=== PATIENT | female | born 1940 | race Caucasian/White ===

== ENCOUNTER → 2016-10-12 | Outpatient (CLI) | payer MEDICARE, OTHER ==
[~2016-10-12] MED LIST: /BACIOPOI TOP; ACET65TA OR; ALBU17IN INH; ALTA1CAP2 PO; ASPI1TAB PO; ASPI1TAB6 PO; BACT800T OR; CALCIUM PO; CEFD1CAP8 PO; CEFT500T OR; CRES20TA PO; DOCU100T8 PO; FAMO40TA3 PO; FE G325T PO; FERR325T3 PO; FURO20TA2 PO; GLUCOSE TEST STRIPS; INSUH10VL SC; INSULANT SC; LISI5TAB OR; LOPR1TAB6 PO; METF1000 PO; METF500T4 OR; MULTCAP PO; RANI150T PO; SITA50TAB PO; TRIA1CR TOP; ZOCO40TA OR; [UNRECOGNIZED DRUG - OTHER] PO; [UNRECOGNIZED DRUG - REMARK]
[2016-10-12 13:59] LABS: BASO # 0.1 K/mm3 (0.0-0.2); BASO % 1.1 % (0.0-1.0); EOS # 0.6 K/mm3 (0.0-0.50); EOS % 9.5 % (0.0-3.0); LARGE UNSTAINED CELL # 0.2 K/mm3 (0.0-0.4); LARGE UNSTAINED CELL % 3.1 % (0.0-4.0); LYMPH # 2.3 K/mm3 (1.5-4.5); LYMPH % 35.2 % (24.0-44.0); MEAN CORPUSCULAR HGB CONC 31.5 g/dl (32.0-36.5); MEAN CORPUSCULAR VOLUME 88.8 fl (80.0-96.0); MONO # 0.4 K/mm3 (0.0-0.8); MONO % 6.6 % (0.0-5.0); NEUTROPHILS # 2.9 K/mm3 (1.8-7.7); NEUTROPHILS % 44.5 % (36.0-66.0); PLATELET COUNT, AUTOMATED 210 k/mm3 (150-450); RED CELL DISTRIBUTION WIDTH 12.7 % (11.5-14.5); WHITE BLOOD COUNT 6.5 K/mm3 (4.0-10.0)
[2016-10-12 14:00] LABS: ALBUMIN 3.9 GM/DL (3.2-5.2); ALBUMIN/GLOBULIN RATIO 1.44 (1.00-1.93); BILIRUBIN,TOTAL 0.4 MG/DL (0.2-1.0); CALCIUM LEVEL 8.9 MG/DL (8.8-10.2); CREATININE FOR GFR 1.04 MG/DL (0.55-1.02); POTASSIUM SERUM 4.7 MEQ/L (3.5-5.1); TOTAL PROTEIN 6.6 GM/DL (6.4-8.2)
== END ==
LOC: M SMT 10:48
PROVIDERS: ATTEND Family Medicine
DX: E11.59 Type 2 diabetes mellitus with other circulatory complications (principal); I10 Essential (primary) hypertension; E66.01 Morbid (severe) obesity due to excess calories

== ENCOUNTER → 2017-03-13 | Outpatient (CLI) | payer MEDICARE, OTHER ==
[~2017-03-13] MED LIST changes: -METF1000 PO; +METF10004 PO
[2017-03-13 13:25] LABS: CALCIUM LEVEL 9.5 MG/DL (8.8-10.2); CREATININE FOR GFR 0.97 MG/DL (0.55-1.02); GLOMERULAR FILTRATION RATE 59.4 (>39); POTASSIUM SERUM 4.3 MEQ/L (3.5-5.1)
== END ==
LOC: M SMT 08:30
PROVIDERS: ATTEND Physician Assistant
DX: E11.59 Type 2 diabetes mellitus with other circulatory complications (principal)

== ENCOUNTER → 2017-09-20 | Outpatient (CLI) | payer MEDICARE, OTHER ==
[2017-09-20 17:59] LABS: BASO # 0.1 10^3/uL (0.0-0.2); BASO % 0.9 % (0.0-1.0); EOS # 0.5 10^3/uL (0.0-0.50); EOS % 7.2 % (0.0-3.0); HEMATOCRIT 39.9 % (36.0-47.0); HEMOGLOBIN 12.5 g/dl (12.0-16.0); IMMATURE GRANULOCYTE % 0.4 % (0-0); LYMPH % 28.7 % (24.0-44.0); MEAN CORPUSCULAR HEMOGLOBIN 28.3 pg (27.0-33.0); MEAN CORPUSCULAR HGB CONC 31.3 g/dl (32.0-36.5); MEAN CORPUSCULAR VOLUME 90.3 fl (80.0-96.0); MONO # 0.7 10^3/uL (0.0-0.8); MONO % 9.5 % (0.0-5.0); NEUTROPHILS # 3.8 10^3/uL (1.8-7.7); NEUTROPHILS % 53.3 % (36.0-66.0); PLATELET COUNT, AUTOMATED 263 10^3/uL (150-450); RED BLOOD COUNT 4.42 10^6/uL (4.00-5.40); RED CELL DISTRIBUTION WIDTH 12.4 % (11.5-14.5); WHITE BLOOD COUNT 7.1 10^3/uL (4.0-10.0)
[2017-09-20 18:56] LABS: ALBUMIN 3.7 GM/DL (3.2-5.2); ALBUMIN/GLOBULIN RATIO 1.09 (1.00-1.93); ALKALINE PHOSPHATASE 100 U/L (45-117); ALT/SGPT 17 U/L (12-78); ANION GAP 9 MEQ/L (8-16); AST/SGOT 10 U/L (7-37); BILIRUBIN,TOTAL 0.4 MG/DL (0.2-1.0); BLOOD UREA NITROGEN 29 MG/DL (7-18); CALCIUM LEVEL 9.6 MG/DL (8.8-10.2); CARBON DIOXIDE LEVEL 29 MEQ/L (21-32); CHLORIDE LEVEL 100 MEQ/L (98-107); CHOLESTEROL LEVEL 112 MG/DL (<200); CHOLESTEROL RISK RATIO 2.871 (<5); CREATININE FOR GFR 1.28 MG/DL (0.55-1.30); FREE T4 1.18 NG/DL (0.76-1.46); GLOMERULAR FILTRATION RATE 43.2 (>39); GLUCOSE, FASTING 280 MG/DL (70-100); HDL CHOLESTEROL 39 MG/DL (>40); LDL CHOLESTEROL 32.4 MG/DL (<100); NON-HDL-C 73 MG/DL; POTASSIUM SERUM 4.2 MEQ/L (3.5-5.1); SODIUM LEVEL 138 MEQ/L (136-145); TOTAL PROTEIN 7.1 GM/DL (6.4-8.2); TRIGLYCERIDES LEVEL 203 MG/DL (<150)
[2017-09-20 19:33] LABS: ESTIMATED AVERAGE GLUCOSE 194 MG/DL (60-110); HEMOGLOBIN A1c 8.4 %
== END ==
LOC: M SMT 14:04
DX: E78.2 Mixed hyperlipidemia (principal); E11.59 Type 2 diabetes mellitus with other circulatory complications
CPT/HCPCS: 84443

== ENCOUNTER → 2018-03-04 | Outpatient (CLI) | payer MEDICARE, OTHER ==
[2018-03-04 13:46] LABS: ALBUMIN 3.5 GM/DL (3.2-5.2); ALBUMIN/GLOBULIN RATIO 1.09 (1.00-1.93); ALKALINE PHOSPHATASE 76 U/L (45-117); ALT/SGPT 15 U/L (12-78); ANION GAP 8 MEQ/L (8-16); AST/SGOT 9 U/L (7-37); BILIRUBIN,TOTAL 0.5 MG/DL (0.2-1.0); BLOOD UREA NITROGEN 24 MG/DL (7-18); CALCIUM LEVEL 9.4 MG/DL (8.8-10.2); CARBON DIOXIDE LEVEL 30 MEQ/L (21-32); CHLORIDE LEVEL 107 MEQ/L (98-107); CHOLESTEROL LEVEL 105 MG/DL (<200); CHOLESTEROL RISK RATIO 2.837 (<5); CREATININE FOR GFR 1.16 MG/DL (0.55-1.30); FREE T4 1.16 NG/DL (0.76-1.46); GLOMERULAR FILTRATION RATE 48.2 (>39); GLUCOSE, FASTING 142 MG/DL (70-100); HDL CHOLESTEROL 37 MG/DL (>40); NON-HDL-C 68 MG/DL; POTASSIUM SERUM 4.3 MEQ/L (3.5-5.1); SODIUM LEVEL 145 MEQ/L (136-145); TOTAL PROTEIN 6.7 GM/DL (6.4-8.2); TRIGLYCERIDES LEVEL 210 MG/DL (<150)
[2018-03-04 14:45] LABS: ESTIMATED AVERAGE GLUCOSE 200 MG/DL (60-110); HEMOGLOBIN A1c 8.6 %
== END ==
LOC: M SMT 11:05
DX: E11.59 Type 2 diabetes mellitus with other circulatory complications (principal); E78.2 Mixed hyperlipidemia
CPT/HCPCS: 84443

== ENCOUNTER → 2018-06-25 | Outpatient (REF) | payer MEDICARE, OTHER ==
[2018-06-25 13:25] LABS: BASO # 0.1 10^3/uL (0.0-0.2); BASO % 0.9 % (0.0-1.0); EOS # 0.8 10^3/uL (0.0-0.50); EOS % 9.6 % (0.0-3.0); HEMATOCRIT 39.1 % (36.0-47.0); IMMATURE GRANULOCYTE % 0.4 % (0-3.0); LYMPH # 2.7 10^3/uL (1.5-4.5); LYMPH % 34.2 % (24.0-44.0); MEAN CORPUSCULAR HEMOGLOBIN 28.4 pg (27.0-33.0); MEAN CORPUSCULAR HGB CONC 30.7 g/dl (32.0-36.5); MEAN CORPUSCULAR VOLUME 92.4 fl (80.0-96.0); MONO # 0.8 10^3/uL (0.0-0.8); MONO % 10.8 % (0.0-5.0); NEUTROPHILS # 3.4 10^3/uL (1.8-7.7); NEUTROPHILS % 44.1 % (36.0-66.0); PLATELET COUNT, AUTOMATED 223 10^3/uL (150-450); RED BLOOD COUNT 4.23 10^6/uL (4.00-5.40); WHITE BLOOD COUNT 7.8 10^3/uL (4.0-10.0)
[2018-06-25 13:40] LABS: ALBUMIN 3.5 GM/DL (3.2-5.2); ALBUMIN/GLOBULIN RATIO 1.17 (1.00-1.93); ALKALINE PHOSPHATASE 75 U/L (45-117); ALT/SGPT 17 U/L (12-78); ANION GAP 6 MEQ/L (8-16); AST/SGOT 13 U/L (7-37); BILIRUBIN,TOTAL 0.3 MG/DL (0.2-1.0); BLOOD UREA NITROGEN 21 MG/DL (7-18); CALCIUM LEVEL 9.1 MG/DL (8.8-10.2); CARBON DIOXIDE LEVEL 31 MEQ/L (21-32); CHLORIDE LEVEL 106 MEQ/L (98-107); CREATININE FOR GFR 1.11 MG/DL (0.55-1.30); GLOMERULAR FILTRATION RATE 50.7 (>39); GLUCOSE, FASTING 125 MG/DL (70-100); POTASSIUM SERUM 4.5 MEQ/L (3.5-5.1); SODIUM LEVEL 143 MEQ/L (136-145); TOTAL PROTEIN 6.5 GM/DL (6.4-8.2)
[2018-06-25 14:02] LABS: ESTIMATED AVERAGE GLUCOSE 171 MG/DL (60-110); HEMOGLOBIN A1c 7.6 %
== END ==
LOC: M LAB REF 12:54
DX: E11.59 Type 2 diabetes mellitus with other circulatory complications (principal); J44.9 Chronic obstructive pulmonary disease, unspecified
CPT/HCPCS: 80053

== ENCOUNTER → 2018-08-05 | Outpatient (CLI) | payer MEDICARE, OTHER ==
--- NOTE | 2018-08-08 14:26 | SLEEPHOME ---
DIAGNOSTIC HOME SLEEP TESTING ORDERED BY: GERARDO Chakraborty DATE OF SERVICE: 08/05/2018 Diagnostic home sleep testing was performed due to concern for the obstructive sleep apnea syndrome. The patient has comorbidities of hypertension and diabetes. For testing a nocturnal T3 respiratory monitoring device was used. Continuous record was made of pulse oxygen saturation airflow, chest, abdominal strain and body position. 9 hours and 59 minutes of data were reviewed. There are 8 hours and 7 minutes marked as time in bed. During the interval of marked time in bed there were 141 respiratory events identified of 10 seconds in duration or greater for a respiratory event index of 17.3 per hour. The events were obstructive. Baseline pulse rate was 75 beats per minute. Pulse rate ranged from 29-129. Baseline saturation was 90%. Saturations fell as low as 56%. The oxygen desaturation index was 7.5. Testing was performed in both the supine and non-supine positions. IMPRESSION: Abnormal home sleep testing with repetitive respiratory events and oxygen desaturations to 56% with a respiratory event index of 17.3 is consistent with the obstructive sleep apnea syndrome. RECOMMENDATIONS: The patient should be encouraged to undergo a formal sleep evaluation and in laboratory pressure titration.
== END ==
LOC: M SLEEP HO 10:51
PROVIDERS: ATTEND Physician Assistant
DX: G47.30 Sleep apnea, unspecified (principal); J44.9 Chronic obstructive pulmonary disease, unspecified

== ENCOUNTER → 2018-12-12 | Outpatient (CLI) | payer MEDICARE, OTHER ==
[~2018-12-12] MED LIST changes: -ASPI1TAB PO; +ASPI81TA26 PO; -CRES20TA PO; +CRES20TA2 PO; +TRIA0.1C60 TOP; -TRIA1CR TOP
--- NOTE | 2018-12-17 14:41 | SLEEPCENT ---
DATE OF STUDY: 12/12/2018 ORDERED BY: DIONY Martinez Nocturnal polysomnography was performed for the titration of pressure therapy in this patient with obstructive sleep apnea syndrome. Apnea-hypopnea index 17.3. For testing the patient was fit with a [employer] Simplus full face mask of small size, 4 cm of water pressure were applied to the circuit and the lights were extinguished. 7 hours and 55 minutes of data were reviewed. There were 334 minutes of sleep identified. Sleep latency was normal at 8.5 minutes. REM latency was delayed at 322 minutes. Sleep architecture improved late in the study. Overall sleep efficiency was 71.3%. The electrocardiogram showed small complexes with a sinus rhythm with an average heart rate of 66 beats per minute. EEG showed reasonably normal waveforms for awake and sleep stages. Respiratory events were well palliated with CPAP at a pressure of 13. There was some limb activity noted but limb movement arousal index was only 4.8. IMPRESSION: Obstructive sleep apnea syndrome (G47.33). RECOMMENDATION: Nightly use of pressure therapy, 13 cm of water. cc: Felisa Julian DO
== END ==
LOC: M SLEEP 19:38
PROVIDERS: ATTEND Nurse Practitioner Family
DX: G47.33 Obstructive sleep apnea (adult) (pediatric) (principal)

== ENCOUNTER 2019-01-31 11:52 | Emergency (ER) | payer MEDICARE, OTHER ==
[~2019-01-31] VITALS: Ht 167.6 cm; Wt 112.3 kg
[2019-01-31 12:58] LABS: BASO # 0.1 10^3/uL (0.0-0.2); BASO % 1.2 % (0.0-1.0); EOS # 0.5 10^3/uL (0.0-0.50); EOS % 7.5 % (0.0-3.0); HEMATOCRIT 38.4 % (36.0-47.0); HEMOGLOBIN 12.2 g/dl (12.0-15.5); LYMPH # 1.6 10^3/uL (1.5-4.5); LYMPH % 24.8 % (24.0-44.0); MEAN CORPUSCULAR HEMOGLOBIN 28.7 pg (27.0-33.0); MEAN CORPUSCULAR HGB CONC 31.8 g/dl (32.0-36.5); MEAN CORPUSCULAR VOLUME 90.4 fl (80.0-96.0); MONO # 0.6 10^3/uL (0.0-0.8); MONO % 8.4 % (0.0-5.0); NEUTROPHILS # 3.8 10^3/uL (1.8-7.7); NEUTROPHILS % 57.6 % (36.0-66.0); PLATELET COUNT, AUTOMATED 225 10^3/uL (150-450); RED BLOOD COUNT 4.25 10^6/uL (4.00-5.40); WHITE BLOOD COUNT 6.5 10^3/uL (4.0-10.0)
--- NOTE | 2019-01-31 13:23 | REP ---
CHEST, TWO VIEWS: Two views of the chest are performed. There is mild bibasilar fibroatelectatic change without evidence of acute infiltrate. Heart is slightly prominent. There is some tortuosity of the thoracic aorta. The mediastinal silhouette is unchanged. There are multiple sternal wires present. There are degenerative changes of the spine. IMPRESSION: No acute infiltrate. Electronically Signed by Francisco Javier Phipps MD 01/31/2019 07:34 P
[2019-01-31 13:26] LABS: INR 0.97
[2019-01-31 13:27] LABS: PARTIAL THROMBOPLASTIN TIME 23.8 SECONDS (25.4-37.6)
[2019-01-31] MEDS ORDERED: MECLIZINE 25 MG TABLET PO ONE (13:30)
[2019-01-31 13:38] LABS: BLOOD UREA NITROGEN 29 MG/DL (7-18); CALCIUM LEVEL 9.4 MG/DL (8.8-10.2); CARBON DIOXIDE LEVEL 30 MEQ/L (21-32); CHLORIDE LEVEL 105 MEQ/L (98-107); CPK CREATINE PHOSPHOKINASE 58 U/L (26-192); CREATININE FOR GFR 1.29 MG/DL (0.55-1.30); FREE T4 1.22 NG/DL (0.76-1.46); GLOMERULAR FILTRATION RATE 42.6 (>39); GLUCOSE, FASTING 203 MG/DL (70-100); MAGNESIUM LEVEL 1.9 MG/DL (1.8-2.4); MB/CK RELATIVE INDEX 1.72 (< OR =4); POTASSIUM SERUM 4.7 MEQ/L (3.5-5.1); SODIUM LEVEL 141 MEQ/L (136-145); TROPONIN I < 0.02 NG/ML (< 0.10)
[2019-01-31] MEDS ORDERED: MECL-68 PO (15:37)
[2019-01-31 16:00] VITALS: BP 145/63
--- NOTE | 2019-02-01 18:46 | ECGEPIP ---
[facility] - ED Test Date: 2019-01-31 Pat Name: KARLA JIMENEZ Department: Room: - Gender: Female Cotton Factor: JKuldeep : 1940 Requested By: WILLIAM Aviles Order Number: [id number] Reading MD: Blanca Pickett Measurements Intervals [place] Rate: 53 P: 78 MO: 231 QRS: QRSD: 101 T: 44 QT: 443 QTc: 418 Interpretive Statements SINUS BRADYCARDIA WITH FIRST DEGREE AV BLOCK LOW QRS VOLTAGE IN PRECORDIAL LEADS PRWP NSTTW abnormalities NO PRIOR FOR COMPARISON Electronically Signed on 02-01-2019 18:45:51 EDT by Blanca Pickett
== END 2019-01-31 16:03 | disposition home or self-care (01) ==
LOC: M ED 11:52 → EDBD 11:52 → M ED 16:03
DX: R42 Dizziness and giddiness (principal); I44.0 Atrioventricular block, first degree; E11.9 Type 2 diabetes mellitus without complications; I11.0 Hypertensive heart disease with heart failure; I50.9 Heart failure, unspecified; I25.2 Old myocardial infarction; I25.10 Atherosclerotic heart disease of native coronary artery without angina pectoris; F33.9 Major depressive disorder, recurrent, unspecified; D50.9 Iron deficiency anemia, unspecified; E78.9 Disorder of lipoprotein metabolism, unspecified; Z87.19 Personal history of other diseases of the digestive system; Z86.73 Personal history of transient ischemic attack (TIA), and cerebral infarction without residual deficits; Z88.1 Allergy status to other antibiotic agents; Z91.018 Allergy to other foods; Z91.048 Other nonmedicinal substance allergy status; Z79.899 Other long term (current) drug therapy; Z79.82 Long term (current) use of aspirin; Z79.4 Long term (current) use of insulin

== ENCOUNTER 2019-02-13 14:15 | Emergency (ER) | payer MEDICARE, OTHER ==
[~2019-02-13] VITALS: Ht 167.6 cm; Wt 113.2 kg
[~2019-02-13 14:15] MED LIST changes: +MECL1TAB31 PO
[2019-02-13] MEDS ORDERED: SPIR1CAP INH (14:46)
[2019-02-13 15:09] LABS: BASO # 0.1 10^3/uL (0.0-0.2); BASO % 0.9 % (0.0-1.0); EOS # 0.5 10^3/uL (0.0-0.50); EOS % 7.6 % (0.0-3.0); HEMATOCRIT 38.4 % (36.0-47.0); HEMOGLOBIN 12.5 g/dl (12.0-15.5); LYMPH # 1.8 10^3/uL (1.5-4.5); LYMPH % 25.8 % (24.0-44.0); MEAN CORPUSCULAR HEMOGLOBIN 29.8 pg (27.0-33.0); MEAN CORPUSCULAR HGB CONC 32.6 g/dl (32.0-36.5); MEAN CORPUSCULAR VOLUME 91.6 fl (80.0-96.0); MONO # 0.7 10^3/uL (0.0-0.8); MONO % 9.7 % (0.0-5.0); NEUTROPHILS # 3.9 10^3/uL (1.8-7.7); NEUTROPHILS % 55.6 % (36.0-66.0); PLATELET COUNT, AUTOMATED 180 10^3/uL (150-450); RED BLOOD COUNT 4.19 10^6/uL (4.00-5.40)
[2019-02-13 15:34] LABS: CALCIUM LEVEL 9.3 MG/DL (8.8-10.2); CREATININE FOR GFR 1.25 MG/DL (0.55-1.30); GLOMERULAR FILTRATION RATE 44.1 (>39); POTASSIUM SERUM 4.6 MEQ/L (3.5-5.1)
[2019-02-13] MEDS ORDERED: ISOVUE-370 76% 100ML VIAL (Q9967) As Ordered ONE (16:22)
--- NOTE | 2019-02-13 16:47 | REP ---
Clinical: Abnormal vaginal bleeding. Technique: Transabdominal pelvic ultrasound followed by transvaginal examination for better evaluation of the endometrium and adnexa. Findings: Enlarged heterogeneous uterus measures 13.2 x 6.1 x 6.6 cm. Endometrial complex is thickened to 38 mm. No obvious focal abnormalities appreciated although evaluation is limited due to body habitus. Bilateral ovaries not visualized. No pelvic fluid. Bladder is partially collapsed and measures 5.6 x 2.7 x 5.6 cm. Impression: Heterogeneous enlarged uterus with thickened endometrium. While no focal abnormalities appreciated, underlying pathology cannot be excluded and evaluation is limited due to body habitus and technical factors. Electronically Signed by Timoteo Garner MD 02/13/2019 04:38 P
--- NOTE | 2019-02-13 17:02 | REP ---
Clinical: Abnormal vaginal bleeding. Possible pelvic mass. Technique: Axial contrast enhanced images from the lung bases to the pubic symphysis with coronal and sagittal re-formations using 100 ml Isovue 370 intravenous contrast material. Comparison: 01/17/2016. Findings: Lung bases demonstrate mild chronic changes. Fatty infiltration to the liver suggested without focal hepatic lesion. Spleen, pancreas, and bilateral adrenal glands are normal. Age-related cortical atrophic changes to the kidneys noted without hydronephrosis. Cholelithiasis noted without acute cholecystitis. The enteric system is without obstruction or acute inflammatory process. Normal terminal ileum and appendix identified in the right lower quadrant. Colonic and sigmoid diverticulosis noted without acute diverticulitis. 2 cm fat containing periumbilical hernia identified. Evaluation of the pelvis demonstrates mild stranding surrounding the bladder raising the possibility of cystitis. The uterus is heterogeneous and enlarged for age but without discrete focal abnormality identified. No adnexal mass lesion. No pelvic fluid or ascites. No adenopathy. No free air. Abdominal aorta and vasculature without aneurysm or dissection. Musculoskeletal structures demonstrate degenerative changes without focal osseous abnormality. Impression: 1. Heterogeneous enlarged uterus without discrete abnormality identified. No adnexal mass or pelvic fluid. 2. Cholelithiasis. 3. Diverticulosis. 4. 2 cm fat containing periumbilical hernia. 5. Cannot exclude cystitis and urinalysis may be warranted. 6. No ascites, focal inflammatory changes or adenopathy. Electronically Signed by Timoteo Garner MD 02/13/2019 04:53 P
[2019-02-13] MEDS ORDERED: MACR100C43 PO (17:59)
[2019-02-13] MEDS ORDERED: NITROFURANTOIN (MACROBID) 100 MG CAP PO ONE (18:00)
[2019-02-13 18:19] VITALS: BP 128/62
--- NOTE | 2019-02-16 14:00 | ED PDOC ---
Post-Departure Follow-Up dr fuentes faxed formal report of pelvic us for fu Emre Hatfield MD Feb 16, 2019 14:00
== END 2019-02-13 18:20 | disposition home or self-care (01) ==
LOC: M ED 14:15
DX: N93.8 Other specified abnormal uterine and vaginal bleeding (principal); N39.0 Urinary tract infection, site not specified; E11.9 Type 2 diabetes mellitus without complications; I48.91 Unspecified atrial fibrillation; I10 Essential (primary) hypertension; E78.5 Hyperlipidemia, unspecified; K21.9 Gastro-esophageal reflux disease without esophagitis; G47.33 Obstructive sleep apnea (adult) (pediatric); K57.90 Diverticulosis of intestine, part unspecified, without perforation or abscess without bleeding; Z87.09 Personal history of other diseases of the respiratory system; Z87.440 Personal history of urinary (tract) infections; Z95.1 Presence of aortocoronary bypass graft; Z88.1 Allergy status to other antibiotic agents; Z91.048 Other nonmedicinal substance allergy status; Z91.018 Allergy to other foods; Z79.899 Other long term (current) drug therapy; Z79.4 Long term (current) use of insulin; Z79.82 Long term (current) use of aspirin
CPT/HCPCS: 36415; 74177; 76830; 76856; 80048; 81001; 85025; 86850; 86900; 86901; 87088; 87186; 99284; Q9967

== ENCOUNTER → 2019-02-24 | Outpatient (REF) | payer MEDICARE, OTHER ==
[~2019-02-24] MED LIST changes: +MACR100C43 PO; +MECL-68 PO; -MECL1TAB31 PO; +NITR100C2; +SPIR1CAP INH
== END ==
LOC: M LAB REF 18:35
PROVIDERS: ATTEND Obstetrics & Gynecology
DX: N95.0 Postmenopausal bleeding (principal)

== ENCOUNTER 2019-03-01 00:20 | Emergency (ER) | payer MEDICARE, OTHER ==
[~2019-03-01] VITALS: Ht 167.6 cm; Wt 124.5 kg
[~2019-03-01 00:20] MED LIST changes: -NITR100C2
[2019-03-01] MEDS ORDERED: NITR100C2 (00:33)
[2019-03-01 01:02] LABS: BASO # 0.1 10^3/uL (0.0-0.2); BASO % 0.6 % (0.0-1.0); EOS # 0.8 10^3/uL (0.0-0.50); EOS % 8.5 % (0.0-3.0); HEMATOCRIT 38.5 % (36.0-47.0); HEMOGLOBIN 12.3 g/dl (12.0-15.5); LYMPH % 11.5 % (24.0-44.0); MEAN CORPUSCULAR HEMOGLOBIN 29.2 pg (27.0-33.0); MEAN CORPUSCULAR HGB CONC 31.9 g/dl (32.0-36.5); MEAN CORPUSCULAR VOLUME 91.4 fl (80.0-96.0); MONO # 0.8 10^3/uL (0.0-0.8); NEUTROPHILS # 6.3 10^3/uL (1.8-7.7); PLATELET COUNT, AUTOMATED 214 10^3/uL (150-450); RED BLOOD COUNT 4.21 10^6/uL (4.00-5.40)
[2019-03-01] MEDS ORDERED: NS 1,000 ML IV ONE (01:15)
[2019-03-01 01:23] LABS: ALBUMIN 3.6 GM/DL (3.2-5.2); BILIRUBIN,DIRECT 0.2 MG/DL (0.0-0.2); BILIRUBIN,TOTAL 0.4 MG/DL (0.2-1.0); TOTAL PROTEIN 7.2 GM/DL (6.4-8.2)
[2019-03-01 03:30] VITALS: BP 148/65
== END 2019-03-01 04:08 | disposition home or self-care (01) ==
LOC: M ED 00:20
DX: N93.9 Abnormal uterine and vaginal bleeding, unspecified (principal); R10.2 Pelvic and perineal pain; C53.9 Malignant neoplasm of cervix uteri, unspecified; Z91.018 Allergy to other foods; Z88.1 Allergy status to other antibiotic agents; Z88.4 Allergy status to anesthetic agent; Z79.899 Other long term (current) drug therapy; Z79.4 Long term (current) use of insulin; Z79.82 Long term (current) use of aspirin

== ENCOUNTER → 2019-03-20 | Outpatient (CLI) | payer MEDICARE, OTHER ==
[~2019-03-20] MED LIST changes: +NITR100C2
[2019-03-20 18:02] LABS: ALBUMIN 3.7 GM/DL (3.2-5.2); BASO # 0.1 10^3/uL (0.0-0.2); BILIRUBIN,TOTAL 0.4 MG/DL (0.2-1.0); CALCIUM LEVEL 9.4 MG/DL (8.8-10.2); CREATININE FOR GFR 1.5 MG/DL (0.55-1.30); EOS # 0.7 10^3/uL (0.0-0.50); GLOMERULAR FILTRATION RATE 35.8 (>39); HEMATOCRIT 39.9 % (36.0-47.0); HEMOGLOBIN 12.3 g/dl (12.0-15.5); LYMPH # 2.8 10^3/uL (1.5-4.5); LYMPH % 35.9 % (24.0-44.0); MEAN CORPUSCULAR HEMOGLOBIN 28.6 pg (27.0-33.0); MEAN CORPUSCULAR HGB CONC 30.8 g/dl (32.0-36.5); MEAN CORPUSCULAR VOLUME 92.8 fl (80.0-96.0); MONO # 0.8 10^3/uL (0.0-0.8); MONO % 10.8 % (0.0-5.0); NEUTROPHILS # 3.3 10^3/uL (1.8-7.7); NEUTROPHILS % 42.9 % (36.0-66.0); PLATELET COUNT, AUTOMATED 207 10^3/uL (150-450); POTASSIUM SERUM 4.2 MEQ/L (3.5-5.1); TOTAL PROTEIN 7.2 GM/DL (6.4-8.2); WHITE BLOOD COUNT 7.7 10^3/uL (4.0-10.0)
[2019-03-20 18:12] LABS: INR 1.09; PROTHROMBIN TIME 13.8 SECONDS (11.8-14.0)
[2019-03-20 18:13] LABS: PARTIAL THROMBOPLASTIN TIME 27.4 SECONDS (25.0-38.4)
[2019-03-20 19:31] LABS: HEMOGLOBIN A1c 9.3 %
== END ==
LOC: M SMT 14:37
PROVIDERS: ATTEND Physician Assistant
DX: Z01.818 Encounter for other preprocedural examination (principal)

== ENCOUNTER 2019-05-11 15:34 | Emergency (ER) | payer MEDICARE, OTHER ==
[~2019-05-11] VITALS: Ht 160 cm; Wt 104.5 kg
[2019-05-11 15:36] VITALS: BP 137/88
--- NOTE | 2019-05-11 18:18 | REP ---
PELVIS, SINGLE VIEW: Single AP view of the chest was performed. There is no fracture or dislocation. There are mild degenerative changes at both hip joints with joint space narrowing, subchondral sclerosis and spurring. There is sclerosis of the sacroiliac joints. There are degenerative changes of the lower lumbar spine. IMPRESSION: Degenerative changes without fracture or dislocation. Electronically Signed by Francisco Javier Phipps MD 05/12/2019 10:04 A
== END 2019-05-11 17:58 | disposition home or self-care (01) ==
LOC: M ED 15:34
DX: S30.0XXA Contusion of lower back and pelvis, initial encounter (principal); W18.39XA Other fall on same level, initial encounter; Y92.018 Other place in single-family (private) house as the place of occurrence of the external cause; E11.9 Type 2 diabetes mellitus without complications; I10 Essential (primary) hypertension; E78.9 Disorder of lipoprotein metabolism, unspecified; Z79.899 Other long term (current) drug therapy; Z79.82 Long term (current) use of aspirin; Z79.4 Long term (current) use of insulin; Z88.1 Allergy status to other antibiotic agents; Z88.8 Allergy status to other drugs, medicaments and biological substances; Z91.018 Allergy to other foods

== ENCOUNTER → 2019-10-28 | Outpatient (CLI) | payer MEDICARE, OTHER ==
[~2019-10-28] MED LIST changes: -MECL-68 PO; +MECL1TAB31 PO
--- NOTE | 2019-10-30 13:43 | SLEEPCENT ---
DATE OF PROCEDURE: 10/28/2019 ORDERING PROVIDER: GERARDO Martinez. Copy to Dr. Julian. INTERPRETATION: Nocturnal polysomnography was performed for evaluation of sleep physiology in this patient with a prior history of obstructive sleep apnea syndrome. 7 hours and 12 minutes of data were reviewed. There were 248.5 minutes of sleep identified. Sleep latency was prolonged and 44.5 minutes. REM sleep was not achieved. Sleep architecture showed poor progression and fragmentation. Overall sleep efficiency 59.8%. The electrocardiogram showed sinus rhythm with an average heart rate of 62. Occasional premature ventricular contractions were seen. EEG showed some alpha intrusion. No focal events normal waveforms for awake and sleep. There were 205 respiratory events identified of 10 seconds in duration or greater for an apnea-hypopnea index of 49.5. The events were primarily obstructive not exclusive to sleep stage nor body posture. Arousals from respiratory events occurred 22.2 times per hour and oxygen desaturations were seen into the 80s. There was also some limb activity. Five trains of 30 events. Limb movement arousal index of seven. IMPRESSION: Obstructive sleep apnea syndrome (G47.33). Apnea-hypopnea index 49.5. RECOMMENDATIONS: The patient should be encouraged to return to sleep disorder center for pressure therapy. In the interim alcohol and sedative avoidance should be practiced and caution exercised during the operation of motor vehicles.
== END ==
LOC: M SLEEP 21:02
PROVIDERS: ATTEND Nurse Practitioner Family
DX: G47.33 Obstructive sleep apnea (adult) (pediatric) (principal)

== ENCOUNTER → 2020-01-30 | Outpatient (CLI) | payer MEDICARE, OTHER ==
--- NOTE | 2020-02-04 11:09 | SLEEPCENT ---
DATE OF STUDY: 01/30/2020 ORDERED BY: Martha Escobar Nocturnal polysomnography was performed for the titration of pressure therapy in this patient with obstructive sleep apnea syndrome. For testing, a [employer]Med Air Fit F20 full face mask of medium size was used and 4 cm of water pressure were applied to the circuit and the lights were extinguished. 7 hours and 35 minutes of data were reviewed. There were 310.5 minutes of sleep identified. Sleep latency was prolonged at 46.5 minutes. REM latency was normal at 121 minutes. Sleep architecture improved with optimal pressure therapy. There were 2 REM cycles appreciated. Overall sleep efficiency was 68.8%. The patient's electrocardiogram showed a sinus rhythm with an average heart rate of 60 beats per minute. Electroencephalogram (EEG) showed normal waveforms for awake and sleep. Respiratory events were fully palliated with C-PAP at a pressure of 10. Limb activity persisted and there were 4-5 trains of 30 events. Limb movement arousal index was 30.3. IMPRESSION: 1. Obstructive sleep apnea syndrome (G47.33). 2. Possible periodic limb movement disorder (G47.61). Limb movement arousal index 30.3. RECOMMENDATION: Nightly use of C-PAP at 10 cm of water should be sufficient to address the patient's obstructive respiratory events. Should sleep symptoms persist, interventions to reduce the frequency of arousal from limb activity may also be helpful.
== END ==
LOC: M SLEEP 20:00
PROVIDERS: ATTEND Nurse Practitioner Family
DX: G47.33 Obstructive sleep apnea (adult) (pediatric) (principal)

== ENCOUNTER → 2020-05-19 | Outpatient (CLI) | payer MEDICARE, OTHER ==
[~2020-05-19] MED LIST changes: +VENTAER INH
[2020-05-19 15:07] LABS: BASO # 0.1 10^3/uL (0.0-0.2); BASO % 1.1 % (0.0-1.0); EOS # 0.6 10^3/uL (0.0-0.5); EOS % 9.2 % (0.0-3.0); HEMATOCRIT 38.7 % (36.0-47.0); HEMOGLOBIN 11.9 g/dl (12.0-15.5); LYMPH # 1.4 10^3/uL (1.5-5.0); LYMPH % 21.5 % (24.0-44.0); MEAN CORPUSCULAR HEMOGLOBIN 27.8 pg (27.0-33.0); MEAN CORPUSCULAR HGB CONC 30.7 g/dl (32.0-36.5); MEAN CORPUSCULAR VOLUME 90.4 fl (80.0-96.0); MONO # 0.7 10^3/uL (0.0-0.8); MONO % 10.4 % (0.0-5.0); NEUTROPHILS # 3.8 10^3/uL (1.5-8.5); NEUTROPHILS % 57.5 % (36.0-66.0); PLATELET COUNT, AUTOMATED 276 10^3/uL (150-450); RED BLOOD COUNT 4.28 10^6/uL (4.00-5.40); WHITE BLOOD COUNT 6.7 10^3/uL (4.0-10.0)
[2020-05-19 15:22] LABS: HEMOGLOBIN A1c 7.6 %
[2020-05-19 15:32] LABS: ALBUMIN 3.8 GM/DL (3.2-5.2); BILIRUBIN,TOTAL 0.5 MG/DL (0.2-1.0); CALCIUM LEVEL 9.7 MG/DL (8.8-10.2); CHOLESTEROL RISK RATIO 2.722 (<5); CREATININE FOR GFR 1.38 MG/DL (0.55-1.30); GLOMERULAR FILTRATION RATE 39.3 (>39); POTASSIUM SERUM 4.2 MEQ/L (3.5-5.1); URIC ACID 7.8 MG/DL (2.6-6.0)
== END ==
LOC: M PLALAB 12:08
PROVIDERS: ATTEND Physician Assistant
DX: E11.22 Type 2 diabetes mellitus with diabetic chronic kidney disease (principal)

== ENCOUNTER → 2020-05-25 | Outpatient (CLI) | payer MEDICARE, OTHER ==
[~2020-05-25] MED LIST changes: -VENTAER INH
--- NOTE | 2020-05-25 16:41 | REPMRS ---
Patient History The patient states she had a clinical breast exam in May 2020.Patient has history of endometrial cancer at age 79. No known family history of cancer. 3D TOMOSYNTHESIS WAS PERFORMED. [facility] lifetime risk for breast cancer is 1.8%. NEL Mujica. Digital Woman Screen Mammo: May 25, 2020 - Exam #: [id number] Bilateral CC and MLO view(s) were taken. Technologist: Serena Rodas, Technologist FINDINGS: There are scattered fibroglandular densities. There has been no change in the appearance of the mammogram from the prior studies. There is a mild amount of residual fibroglandular tissue which is fairly symmetric. There is no interval development of dominant mass, architectural distortion, or clustered microcalcification suggestive of malignancy. Assessment: BI-RADS/ACR category 1 mammogram. Negative Mammogram. Recommendation Routine screening mammogram in 1 year (for women over age 40). This mammogram was interpreted with the aid of an FDA-approved computer-aided dectection system. Electronically Signed By: Francisco Javier Phipps MD 05/25/20 1640
== END ==
LOC: M WHC 15:18
PROVIDERS: ATTEND Physician Assistant
DX: Z12.31 Encounter for screening mammogram for malignant neoplasm of breast (principal); Z85.44 Personal history of malignant neoplasm of other female genital organs

== ENCOUNTER → 2020-07-02 | Outpatient (CLI) | payer MEDICARE, OTHER ==
[~2020-07-02] MED LIST changes: +VENTAER INH
== END ==
LOC: M LABSMTC 09:31
PROVIDERS: ATTEND Anesthesiology
DX: Z01.812 Encounter for preprocedural laboratory examination (principal); Z20.828 Contact with and (suspected) exposure to other viral communicable diseases

== ENCOUNTER → 2020-08-22 | Outpatient (REF) | payer MEDICARE, OTHER | LOC: M LAB REF 16:49 | PROVIDERS: ATTEND Physician Assistant | DX: R35.0 Frequency of micturition (principal) ==

== ENCOUNTER → 2020-09-10 | Outpatient (CLI) | payer MEDICARE, OTHER | LOC: M LABSMTC 09:52 | PROVIDERS: ATTEND Anesthesiology | DX: Z01.812 Encounter for preprocedural laboratory examination (principal); Z20.822 Contact with and (suspected) exposure to COVID-19 ==

== ENCOUNTER 2020-09-15 08:21 | Day surgery (SDC) | payer MEDICARE, OTHER ==
[~2020-09-15] VITALS: Ht 162.6 cm; Wt 108.0 kg
[~2020-09-15 08:21] MED LIST changes: +LIDOCAINE 2% 100MG/5ML SDV (FOR ANES.) As Ordered ONE; +NS 1,000 ML IV ONE; +propofoL 200 MG/20 ML VIAL As Ordered ONE
--- OUTSIDE RECORDS SUMMARY | 2020-09-15 08:29 | CCD | Continuity of Care Document ---
Author Author Erna HOWE Organization Unknown Address [place] [address] Phone [phone] Care Team Providers Care Emissions Testing Technician Name Role Phone Felisa Julian D.O. AUTM [phone] AUTM [phone] Brian Oscar M.D. AUTM [phone] Problems Active Problems Provider Date Type 2 diabetes mellitus Onset: 05/31/20 14 Type II diabetes mellitus uncontrolled Felisa Julian D.O. Onset: 12/14/2014 Coronary arteriosclerosis Felisa Julian D.O. Onset: 12/14/2014 Obesity Felisa Julian D.O. Onset: 2014 Essential hypertension Feilsa Julian D.O. Onset: Edema Felisa Julain D.O. Onset: 2014 Mixed hyperlipidemia Felisa Julian D.O. Onset: 12/14 Morbid obesity Felisa Julian D.O. Onset: 2014 Obstructive sleep apnea syndrome Felisa Julian D.O. Onset: 03/23/2015 Peripheral vascular disorder due to diabetes mellitus Felisa Julian D.O. Onset: 08/03/2015 Body mass index 40+ - severely obese Rex Williamson Onset: 08/03/2015 Atherosclerotic heart disease of [place] coronary arter y without angina pectoris Felisa Julian D.O. Onset: 08/03/2015 Adjustment disorder with depressed mood Felisa Julian D.O. Onset: 11/23/2015 Chronic kidney disease stage 3 Felisa Julian D.O. On set: 10/11/2016 Chronic kidney disease stage 3 due to type 2 diabetes mellitus GERARDO Pruitt Onset: 05/19/2020 Chronic obstructive lung disease GERARDO Pruitt Onset: 05/19/2020 Social History Type Date Description Comments Sex Unknown ETOH Use Denies alcohol use Tobacco Use Start: Unknown Patient has never smoked Recreational Drug Use Denies Drug Use Smoking Status Reviewed: 06/10/19 Patient has never smoked Exercise Type/Frequency Does not exercise Seat Belt/Car Seat Always uses seat belt Allergies, Adverse Reactions, Alerts Active Allergies Reaction Severity Comments Date [place] Anaphylaxis 05/13/2014 Medications Active Medications SIG Qnty Indications Ordering Provide r Date Keflex 500mg Capsules one capsule by mouth every 12 hours for ten days 20caps R35.0 Felisa Julian D.O. 08/22/2020 Commode 3-In-1 3-In-1 Misc to be used at bedside prognosis fair, duration 99 1units N39.41 Felisa Bower D.O. 06/17/2020 J44.9 E66.01 Walker Auto Glides/5 Adjustment Holes/- 08/26" -08/26" Misc rolling walker with seat dispense:1, duration:99 dx: j44.9 J44.9 Felisa Julian D.O. 02/10/2020 Ulticare Pen [place]/29G X 12.7mm 29G X 12.7mm Misc for use with lantus solstar pen daily 100units Felisa Julian D.O. 06/11/2019 Famotidine 20mg Tablets take 1 by mouth twice daily as needed for heartburn. 180tabs Felisa Marx D.O. 06/10/2019 Meclizine HCL 25mg Chewtabs 1 by mouth every 8 hours as needed 90units Stefan Williamson 06/02/2019 Ventolin HFA 108(90Base) mcg/Act A erosol 2 puffs every 4 hours shortness of breath or wheezing 1inhaler Stefan AdamsOMelody 11/10/2018 Spiriva Handihaler 18mcg Capsules 1 puff every day (please assemble for patient) 90caps J44.9 Rex Sandoval.O. 11/10/2018 Pulse Oximeter [facility] one unit to monitor blood oxygen level 1units Lashay44.9 Rex Williamson.O. Cane Misc four pronged walker for stablity with gait 1units Lashay44.9 Rex Williamson.OMelody Portable Oxygen Concentrator. Use as directed. Dx: Copd, Dys pnea on exertion. 1units Lashay44.9 Rex Williamson.OMelody 04/01/2018 Crestor 20mg Tablets 1 by mouth every night 90tabs E78.2 Rex Williamson.OMelody 08/08 Accu-Chek Smartview Strips 1 strip twice a day 100units Rex Williamson.OMelody 07/09 Freestyle Lite Test Strips fingerstick blood sugar testing twice daily (30 day supply) QS Stefan WilliamsonOMelody 03/06/2016 Glucometer Dispense: 1 Dx:e11.59, Prognosis: fair, duration: 99 E11.59 Stefan WilliamsonOMelody 01/20/2016 Aspirin 81mg Chewtabs 1 by mouth daily 90units Rex Williamson.OMelody 02/28/2015 Furosemide 20mg Tablets 1 by mouth twice daily 180tabs Rex Williamson.OMelody 04/21 Metformin HCL 1000mg Tablets 1 by mouth once a day with meals 180tabs Rex Williamson.OMelody 04/21/2014 Lopressor 50mg Tablets 1 by mouth twice a day 180tabs Rex Williamson.OMelody 04/21 Lantus 100Unit/ML Solution solastar pen 45 units at bedtime 30 day supply 30ml Felisa rodriguez D.OMelody 04/21/2014 Nitrostat 0.3mg Tablets Sub 1 tab sublingual as needed chest pain 14tabs Felisa osborne D.O. Ramipril 2.5mg Capsules 1 by mouth every day 90caps Felisa Julian D.OMelody Immunizations Description No Information Available Vital Signs Date Vital Result Comment 08/22/2020 10:38am BP Systolic 134 mmHg BP Diastolic 64 mmHg Height 63.25 inches 5'3.25" Weight 237.50 lb BMI (Body Mass Index) 41.7 kg/m2 Heart Rate 80 /min Respiratory Rate 20 /min Body Temperature 97.2 F O2 % BldC Oximetry 98 % [place] Body Weight 115 lb 05/19/2020 10:56am BP Systolic 130 mmHg BP Diastolic 68 mmHg Height 63.25 inches 5'3.25" Weight 233.38 lb BMI (Body Mass Index) 41.0 kg/m2 Heart Rate 81 /min Respiratory Rate 20 /min Body Temperature 97.8 F O2 % BldC Oximetry 95 % [place] Body Weight 115 lb Results Test Acquired Date Facility Test Result H/L Range Note CBC With Differential 05/19/[address] [id number] [phone] White Blood Count 6.7 10 Normal 4.0-10.0 Red Blood Count 4.28 10 Normal 4.00-5.40 Hemoglobin 11.9 g/dL Low 12.0-15.5 Hematocrit 38.7 % Normal 36.0-47.0 Mean Corpuscular Volume 90.4 fl Normal 80.0-96.0 Mean Corpuscular Hemoglobin 27.8 pg Normal 27.0-33.0 Mean Corpuscular HGB Conc 30.7 g/dL Low 32.0-36.5 Red Cell Distribution Width 13.1 % Normal 11.5-14.5 Platelet Count, Automated 276 10 Normal 150-450 Neutrophils % 57.5 % Normal 36.0-66.0 Lymph % 21.5 % Low 24.0-44.0 [place] % 10.4 % High 0.0-5.0 Eos % 9.2 % High 0.0-3.0 Baso % 1.1 % High 0.0-1.0 Immature Granulocyte % 0.3 % Normal 0-3.0 Nucleated Red Blood Cell % 0.0 % Normal 0-0 Neutrophils # 3.8 10 Normal 1.5-8.5 Lymph # 1.4 10 Low 1.5-5.0 [place] # 0.7 10 Normal 0.0-0.8 Eos # 0.6 10 High 0.0-0.5 Baso # 0.1 10 Normal 0.0-0.2 Comprehensive Metabolic Profil 05/19/[address] [address] [phone] Glucose, Fasting 128 mg/dL High 70-100 Blood Urea Nitrogen 37 mg/dL High 7-18 Creatinine For GFR 1.38 mg/dL High 0.55-1.30 Glomerular Filtration Rate 39.3 Normal >39 1 Sodium Level 139 mEq/L Normal 136-145 Potassium Serum 4.2 mEq/L Normal 3.5-5.1 Chloride Level 103 mEq/L Normal 98-107 Carbon Dioxide Level 29 mEq/L Normal 21-32 Anion Gap 7 mEq/L Low 8-16 Calcium Level 9.7 mg/dL Normal 8.8-10.2 Ast/Sgot 10 U/L Normal 7-37 Alt/SGPT 16 U/L Normal 12-78 Alkaline Phosphatase 88 U/L Normal 45-117 Bilirubin,Total 0.5 mg/dL Normal 0.2-1.0 Total Protein 7.0 GM/DL Normal 6.4-8.2 Albumin 3.8 GM/DL Normal 3.2-5.2 Albumin/Globulin Ratio 1.2 Normal 1.2-2.2 Hemoglobin A1c 05/19/2020 [facility] [address] [place] [address] [phone] Hemoglobin A1c 7.6 % Normal 2 Estimated Average Glucose 171 mg/dL High 60-110 Laboratory test finding 05/19/[address] [address] [phone] Uric Acid 7.8 mg/dL High 2.6-6.0 Lipid Panel 05/19/2020 [facility] [address] [address] [phone] Triglycerides Level 139 mg/dL Normal <150 Cholesterol Level 98 mg/dL Normal <200 HDL Cholesterol 36 mg/dL Low >40 LDL Cholesterol 34 mg/dL Normal <100 Non-HDL-C 62 mg/dL Normal Cholesterol Risk Ratio 2.722 Normal <5 1 Units are mL/min/1.73 m2 Chronic Kidney Disease Staging per NKF: Stage I & II GFR >=60 Normal to Mildly Decreased Stage III GFR 30-59 Moderately Decreased Stage IV GFR 15-29 Severely Decreased Stage V GFR <15 Very Little GFR Left ESRD GFR <15 on VP COMPLIANCE 2 REFERENCE RANGES: <=5.6% NORMAL 5.7-6.4% SUGGESTS IMPAIRED GLUCOSE META BOLISM/PREDIABETIC >= 6.5% ABNORMAL Procedures Date Code Description Status 05/25/2020 [id number] Mammogram Completed Medical Devices Description No Information Available Encounters Type Date Location Provider Dx Diagnosis Office Visit 05/19/2020 11:00a [facility] GERARDO Pruitt 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 N18.30 Chronic kidney disease, stag e 3 unspecified E78.2 Mixed hyperlipidemia I25.10 Athscl heart disease of [place] coronary artery w/o ang pctrs G47.33 Obstructive sleep apnea (mani lt) (pediatric) J44.9 Chronic obstructive pulmonar y disease, unspecified Z79.4 terminal block assembler (current) use of i nsulin Z79.82 terminal block assembler (current) use of a spirin Z79.84 prison (current) use of o ral hypoglycemic drugs Z79.899 Other intermediate card tender (current) dr deleon therapy H91.93 Unspecified hearing loss, bi lateral Z12.31 Encntr screen mammogram for malignant neoplasm of breast Z12.11 Encounter for screening for malignant neoplasm of colon Assessments Date Code Description Provider 08/22/2020 E11.22 Type 2 diabetes mellitus with di abetic chronic kidney diseas GERARDO Pruitt 08/22/2020 N18.30 Chronic kidney disease, stage 3 unspecified GERARDO Pruitt 08/22/2020 E78.2 Mixed hyperlipidemia GERARDO Agustin 08/22/2020 I25.10 Atherosclerotic heart disease of [place] coronary artery with GERARDO Pruitt 08/22/2020 G47.33 Obstructive sleep apnea (adult) (pediatric) GERARDO Pruitt 08/22/2020 J44.9 Chronic obstructive pulmonary di sease, unspecified GERARDO Pruitt 08/22/2020 Z79.4 prison (current) use of insul in GERARDO Pruitt 08/22/2020 Z79.82 terminal block assembler (current) use of aspir in GERARDO Pruitt 08/22/2020 Z79.84 prison (current) use of oral hypoglycemic drugs GERARDO Pruitt 08/22/2020 R35.0 Frequency of micturition GERARDO Pruitt 05/19/2020 E11.22 Type 2 diabetes mellitus with di abetic chronic kidney diseas GERARDO Pruitt 05/19/2020 N18.30 Chronic kidney disease, stage 3 unspecified GERARDO Pruitt 05/19/2020 E78.2 Mixed hyperlipidemia GERARDO Agustin 05/19/2020 I25.10 Atherosclerotic heart disease of [place] coronary artery with GERARDO Pruitt 05/19/2020 G47.33 Obstructive sleep apnea (adult) (pediatric) GERARDO Pruitt 05/19/2020 J44.9 Chronic obstructive pulmonary di sease, unspecified GERARDO Pruitt 05/19/2020 Z79.4 prison (current) use of insul in GERARDO Pruitt 05/19/2020 Z79.82 prison (current) use of aspir in GERARDO Pruitt 05/19/2020 Z79.84 terminal block assembler (current) use of oral hypoglycemic drugs GERARDO Pruitt 05/19/2020 Z79.899 Other fpc (current) drug t herapy GERARDO Pruitt 05/19/2020 H91.93 Unspecified hearing loss, bilate ral GERARDO Pruitt 05/19/2020 Z12.31 Encounter for screen ing mammogram for malignant neoplasm of breast GERARDO Pruitt 05/19/2020 Z12.11 Encounter for screening for dio gnant neoplasm of colon GERARDO Pruitt Plan of Treatment Future Appointment(s):* 11/23/2020 11:00 am - GERARDO Pruitt at [facility] 08/22/2020 - GERARDO Pruitt* E11.22 Type 2 diabetes mellitus with diabetic chronic kidney diseas* New Labs:* Comprehensive Metabolic Profil, Scheduled: 08/22/20 * CBC With Differential, Scheduled: 08/22/20 * Hemoglobin A1c, Scheduled: 08/22/20 * Lipid Panel, Scheduled: 08/22/20 * Uric Acid, Scheduled: 08/22/20 * Microalbumin Random, Scheduled: 08/22/20 * Comments:* Continue with Lantus 45 units at night and continue to check fasting blood sugars. STOP YOUR MORNING DOSAGE OF METFORMIN DUE TO DIARRHEA. Take Metformin 1000 mg with food at dinner time. * Follow up:* 3 months * N18.30 Chronic kidney disease, stage 3 unspecified* Comments:* Please get labs to check status of kidneys and continue to monitor your blood pressure. Take Furosemide 40 mg once a day as oppose to 20 mg twice a day * E78.2 Mixed hyperlipidemia* Comments:* continue with Crestor 20 mg to help control your cholesterol * I25.10 Atherosclerotic heart disease of [place] coronary artery with* Comments: * stable without any recent use of nitroglycerin. * G47.33 Obstructive sleep apnea (adult) (pediatric)* Comments:* Continue with use of CPAP and achieve at least 4 hours of use each night. Managed with [facility]. Try Melatonin, Magnesium, and Benadryl to help with sleeping at night. * J44.9 Chronic obstructive pulmonary disease, unspecified* Comments:* Continue with current medications to help manage symptoms. * Z79.4 prison (current) use of insulin * Z79.82 prison (current) use of aspirin * Z79.84 terminal block assembler (current) use of oral hypoglycemic drugs * R35.0 Frequency of micturition* New Medication:* Keflex 500 mg - one capsule by mouth every 12 hours for ten days * New Labs:* Urine Culture, Scheduled: 08/22/20 * Inhouse Ua, Ordered: 08/22/20 Functional Status Description No Information Available Mental Status Description No Information Available Referrals Refer to Reason for Referral Status Appt Date Brian Oscar M.D. routine colonoscopy. Closed [address] [place] [id number] [phone]
--- OUTSIDE RECORDS SUMMARY | 2020-09-15 08:29 | CCD | Continuity of Care Document ---
Author Author Erna HOWE Organization Unknown Address [place] [address] Phone [phone] Care Team Providers Care Fisheries Biologist Name Role Phone Fleisa Julian D.O. AUTM [phone] [facility] AUTM [phone] Brian Oscar M.D. AUTM [phone] Problems Active Problems Provider Date Type 2 diabetes mellitus Onset: 05/31/20 14 Type II diabetes mellitus uncontrolled Felisa Julian D.O. Onset: 12/14/2014 Coronary arteriosclerosis Felisa Julian D.O. Onset: 12/14/2014 Obesity Felisa Julian D.O. Onset: 2014 Essential hypertension Felisa Julian D.O. Onset: Edema Felisa Julian D.O. Onset: 2014 Mixed hyperlipidemia Felisa Julian D.O. Onset: 12/14 Morbid obesity Felisa Julian D.O. Onset: 2014 Obstructive sleep apnea syndrome Felisa Julian D.O. Onset: 03/23/2015 Peripheral vascular disorder due to diabetes mellitus Felisa Julian D.O. Onset: 08/03/2015 Body mass index 40+ - severely obese Rex Williamson Onset: 08/03/2015 Atherosclerotic heart disease of [place] coronary arter y without angina pectoris Felisa [...] J44.9 Felisa Julian D.O. 02/10/2020 Ulticare Pen [place]/29G X 12.7mm 29G X 12.7mm Misc for [...] 90caps J44.9 Rex Sandoval.O. 11/10/2018 Pulse Oximeter [facility] one unit to monitor blood oxygen level [...] as needed chest pain 14tabs Felisa osborne D.OMelody Ramipril 2.5mg Capsules 1 by mouth every [...] F O2 % BldC Oximetry 98 % [place] Body Weight 115 lb 05/19/2020 10:56am BP Systolic 130 mmHg BP Diastolic 68 mmHg Height 63.25 inches 5'3.25" Weight 233.38 lb BMI (Body Mass Index) 41.0 kg/m2 Heart Rate 81 /min Respiratory Rate 20 /min Body Temperature 97.8 F O2 % BldC Oximetry 95 % [place] Body Weight 115 lb Results Test Acquired Date Facility Test Result H/L Range Note Inhouse Ua 08/22/2020 Inhouse Inhouse Leukocytes ++ Inhouse Nitrite + Inhouse Urobilinogen + Inhouse Protein neg Inhouse PH 5 Inhouse Hemoglobin neg Inhouse Specific [place] 1.025 Inhouse Ketones neg Inhouse Bilirubin neg Inhouse Glucose neg CBC With Differential 05/19/2020 [place] [id number] [phone] White Blood Count 6.7 10 Normal 4.0-10.0 [...] 36.0-66.0 Lymph % 21.5 % Low 24.0-44.0 [place] % 10.4 % High 0.0-5.0 Eos % 9.2 % High 0.0-3.0 Baso % 1.1 % High 0.0-1.0 Immature Granulocyte % 0.3 % Normal 0-3.0 Nucleated Red Blood Cell % 0.0 % Normal 0-0 Neutrophils # 3.8 10 Normal 1.5-8.5 Lymph # 1.4 10 Low 1.5-5.0 [place] # 0.7 10 Normal 0.0-0.8 Eos # 0.6 10 High 0.0-0.5 Baso # 0.1 10 Normal 0.0-0.2 Comprehensive Metabolic Profil 05/19/[address] [address] [phone] Glucose, Fasting 128 mg/dL High 70-100 Blood [...] Ratio 1.2 Normal 1.2-2.2 Hemoglobin A1c 05/19/2020 [facility] nter [address] [place] [address] [phone] Hemoglobin A1c 7.6 % Normal 2 Estimated Average Glucose 171 mg/dL High 60-110 Laboratory test finding 05/19/[address] [id number] [phone] Uric Acid 7.8 mg/dL High 2.6-6.0 Lipid Panel 05/19/2020 [facility] nter [address] [place] [address] [phone] Triglycerides Level 139 mg/dL Normal <150 Cholesterol [...] Little GFR Left ESRD GFR <15 on OSTEOPATHIC RESIDENT 2 REFERENCE RANGES: <=5.6% NORMAL 5.7-6.4% SUGGESTS IMPAIRED GLUCOSE META BOLISM/PREDIABETIC >= 6.5% ABNORMAL Procedures Date Code Description Status 05/25/2020 [id number] Mammogram Completed Medical Devices Description No Information Available Encounters Type Date Location Provider Dx Diagnosis Office Visit 08/22/2020 10:20a [facility] GERARDO Pruitt 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 N18.30 Chronic kidney disease, stag e 3 unspecified E78.2 Mixed hyperlipidemia I25.10 Athscl heart disease of [place] coronary artery w/o ang pctrs G47.33 Obstructive sleep apnea (mani lt) (pediatric) J44.9 Chronic obstructive pulmonar y disease, unspecified Z79.4 terminal makeup operator (current) use of i nsulin Z79.82 terminal makeup operator (current) use of a spirin Z79.84 terminal makeup operator (current) use of o ral hypoglycemic drugs R35.0 Frequency of micturition Office Visit 05/19/2020 11:00a [facility] GERARDO Pruitt 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 N18.30 Chronic kidney disease, stag e 3 unspecified E78.2 Mixed hyperlipidemia I25.10 Athscl heart disease of [place] coronary artery w/o ang pctrs G47.33 Obstructive sleep apnea (mani lt) (pediatric) J44.9 Chronic obstructive pulmonar y disease, unspecified Z79.4 senior care (current) use of i nsulin Z79.82 terminal makeup operator (current) use of a spirin Z79.84 terminal makeup operator (current) use of o ral hypoglycemic drugs Z79.899 Other skilled nursing (current) dr deleon therapy H91.93 Unspecified hearing [...] Agustin 08/22/2020 I25.10 Atherosclerotic heart disease of [place] coronary artery with GERARDO Pruitt 08/22/2020 G47.33 Obstructive sleep apnea (adult) (pediatric) GERARDO Pruitt 08/22/2020 J44.9 Chronic obstructive pulmonary di sease, unspecified GERARDO Pruitt 08/22/2020 Z79.4 senior care (current) use of insul in GERARDO Pruitt 08/22/2020 Z79.82 terminal makeup operator (current) use of aspir in GERARDO Pruitt 08/22/2020 Z79.84 terminal makeup operator (current) use of oral hypoglycemic drugs GERARDO Pruitt 08/22/2020 R35.0 Frequency of micturition GERRADO Pruitt 05/19/2020 E11.22 Type 2 diabetes mellitus with di abetic chronic kidney diseas GERARDO Pruitt 05/19/2020 N18.30 Chronic kidney disease, stage 3 unspecified GERARDO Pruitt 05/19/2020 E78.2 Mixed hyperlipidemia GERARDO Agustin 05/19/2020 I25.10 Atherosclerotic heart disease of [place] coronary artery with GERARDO Pruitt 05/19/2020 G47.33 Obstructive sleep apnea (adult) (pediatric) GERARDO Pruitt 05/19/2020 J44.9 Chronic obstructive pulmonary di sease, unspecified GERARDO Pruitt 05/19/2020 Z79.4 senior care (current) use of insul in GERARDO Pruitt 05/19/2020 Z79.82 terminal makeup operator (current) use of aspir in GERARDO Pruitt 05/19/2020 Z79.84 terminal makeup operator (current) use of oral hypoglycemic drugs GERARDO Pruitt 05/19/2020 Z79.899 Other skilled nursing (current) drug t herapy GERARDO Pruitt 05/19/2020 H91.93 Unspecified hearing loss, bilate ral GERARDO Pruitt 05/19/2020 Z12.31 Encounter for screen ing mammogram for malignant neoplasm of breast GERARDO Pruitt 05/19/2020 Z12.11 Encounter for screening for dio gnant neoplasm of colon GERARDO Pruitt Plan of Treatment Future Appointment(s):* 11/23/2020 11:00 am - GERARDO Pruitt at [facility] Functional Status Description No Information Available Mental Status Description No Information Available Referrals Refer to Reason for Referral Status Appt Date Brian Oscar M.D. routine colonoscopy. Closed [address] [place], [place] [address] [phone]
--- OUTSIDE RECORDS SUMMARY | 2020-09-15 08:29 | CCD | Continuity of Care Document ---
Author Author Erna HOWE Organization Unknown Address [place] [address] Phone [phone] Care Team Providers Care University Relations Director Name Role Phone Felisa Julian D.O. AUTM [facility] AUTM [phone] Brian Oscar M.D. AUTM [phone] Problems Active Problems Provider Date Type 2 [...] Williamson Onset: 08/03/2015 Atherosclerotic heart disease of [place] coronary arter y without angina pectoris Felisa [...] J44.9 Felisa Julian D.O. 02/10/2020 Ulticare Pen [place]/29G X 12.7mm 29G X 12.7mm Misc for [...] 90caps J44.9 Rex Sandoval.O. 11/10/2018 Pulse Oximeter [facility] [place] to monitor blood [...] F O2 % BldC Oximetry 98 % [place] Body Weight 115 lb 05/19/2020 10:56am BP Systolic 130 mmHg BP Diastolic 68 mmHg Height 63.25 inches 5'3.25" Weight 233.38 lb BMI (Body Mass Index) 41.0 kg/m2 Heart Rate 81 /min Respiratory Rate 20 /min Body Temperature 97.8 F O2 % BldC Oximetry 95 % [place] Body Weight 115 lb Results Test Acquired Date Facility Test Result H/L Range Note Inhouse Ua 08/22/2020 Inhouse Inhouse Leukocytes ++ Inhouse Nitrite + Inhouse Urobilinogen + Inhouse Protein neg Inhouse PH 5 Inhouse Hemoglobin neg Inhouse Specific [place] 1.025 Inhouse Ketones neg Inhouse Bilirubin neg Inhouse Glucose neg CBC With Differential 05/19/2020 [place] [id number] [phone] White Blood Count 6.7 10 Normal 4.0-10.0 [...] 36.0-66.0 Lymph % 21.5 % Low 24.0-44.0 [place] % 10.4 % High 0.0-5.0 Eos % 9.2 % High 0.0-3.0 Baso % 1.1 % High 0.0-1.0 Immature Granulocyte % 0.3 % Normal 0-3.0 Nucleated Red Blood Cell % 0.0 % Normal 0-0 Neutrophils # 3.8 10 Normal 1.5-8.5 Lymph # 1.4 10 Low 1.5-5.0 [place] # 0.7 10 Normal 0.0-0.8 Eos # 0.6 10 High 0.0-0.5 Baso # 0.1 10 Normal 0.0-0.2 Comprehensive Metabolic Profil 05/19/[address] [address] [phone] Glucose, Fasting 128 mg/dL High 70-100 Blood [...] Ratio 1.2 Normal 1.2-2.2 Hemoglobin A1c 05/19/2020 [facility] nter [address] [place] [address] [phone] Hemoglobin A1c 7.6 % Normal 2 Estimated Average Glucose 171 mg/dL High 60-110 Laboratory test finding 05/19/[address] [id number] [phone] Uric Acid 7.8 mg/dL High 2.6-6.0 Lipid Panel 05/19/2020 [facility] nter [address] [place] [address] [phone] Triglycerides Level 139 mg/dL Normal <150 Cholesterol [...] Little GFR Left ESRD GFR <15 on DEALER SUPPORT TECHNICIAN 2 REFERENCE RANGES: <=5.6% NORMAL 5.7-6.4% SUGGESTS IMPAIRED GLUCOSE META BOLISM/PREDIABETIC >= 6.5% ABNORMAL Procedures Date Code Description Status 05/25/2020 [id number] Mammogram Completed Medical Devices Description No Information Available Encounters Type Date Location Provider Dx Diagnosis Office Visit 05/19/2020 11:00a [facility] GERARDO Pruitt 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 N18.30 Chronic kidney disease, stag e 3 unspecified E78.2 Mixed hyperlipidemia I25.10 Athscl heart disease of [place] coronary artery w/o ang pctrs G47.33 Obstructive sleep apnea (mani lt) (pediatric) J44.9 Chronic obstructive pulmonar y disease, unspecified Z79.4 director long term care (current) use of i nsulin Z79.82 director long term care (current) use of a spirin Z79.84 director long term care (current) use of o ral hypoglycemic drugs Z79.899 Other equipment operator intermodal yard (current) dr deleon therapy H91.93 Unspecified hearing [...] Agustin 08/22/2020 I25.10 Atherosclerotic heart disease of tribal coronary artery with GERARDO Pruitt 08/22/2020 G47.33 Obstructive sleep apnea (adult) (pediatric) GERARDO Pruitt 08/22/2020 J44.9 Chronic obstructive pulmonary di sease, unspecified GERARDO Pruitt 08/22/2020 Z79.4 custodial (current) use of insul in GERARDO Pruitt 08/22/2020 Z79.82 director long term care (current) use of aspir in GERARDO Pruitt 08/22/2020 Z79.84 director long term care (current) use of oral hypoglycemic drugs GERARDO Pruitt 08/22/2020 R35.0 Frequency of micturition GERARDO Pruitt 05/19/2020 E11.22 Type 2 diabetes mellitus with di abetic chronic kidney diseas GERARDO Pruitt 05/19/2020 N18.30 Chronic kidney disease, stage 3 unspecified GERARDO Pruitt 05/19/2020 E78.2 Mixed hyperlipidemia GERARDO Agustin 05/19/2020 I25.10 Atherosclerotic heart disease of tribal coronary artery with GERARDO Pruitt 05/19/2020 G47.33 Obstructive sleep apnea (adult) (pediatric) GERARDO Pruitt 05/19/2020 J44.9 Chronic obstructive pulmonary di sease, unspecified GERARDO Pruitt 05/19/2020 Z79.4 director long term care (current) use of insul in GERARDO Pruitt 05/19/2020 Z79.82 director long term care (current) use of aspir in GERARDO Pruitt 05/19/2020 Z79.84 custodial (current) use of oral hypoglycemic drugs GERARDO Pruitt 05/19/2020 Z79.899 Other equipment operator intermodal yard (current) drug t herapy GERARDO Pruitt 05/19/2020 H91.93 Unspecified hearing loss, bilate ral GERARDO Pruitt 05/19/2020 Z12.31 Encounter for screen ing mammogram for malignant neoplasm of breast GERARDO Pruitt 05/19/2020 Z12.11 Encounter for screening for dio gnant neoplasm of colon GERARDO Pruitt Plan of Treatment Future Appointment(s):* 11/23/2020 11:00 am - GERARDO Pruitt at [facility] 08/22/2020 - GERARDO Pruitt* E11.22 Type 2 [...] cholesterol * I25.10 Atherosclerotic heart disease of tribal coronary artery with* Comments: * stable without [...] medications to help manage symptoms. * Z79.4 custodial (current) use of insulin * Z79.82 custodial (current) use of aspirin * Z79.84 director long term care (current) use of oral hypoglycemic drugs * R35.0 Frequency of micturition* New Medication:* Keflex 500 mg - one capsule by mouth every 12 hours for ten days * New Labs:* Urine Culture, Scheduled: 08/22/20 Functional Status Description No Information Available Mental Status Description No Information Available Referrals Refer to Dr Reason for Referral Status Appt Date Brian Oscar M.D. routine colonoscopy. Closed 1 [address] [place] [id number] [phone]
--- OUTSIDE RECORDS SUMMARY | 2020-09-15 08:29 | CCD | Continuity of Care Document ---
Author Author Erna HOWE Organization Unknown Address [place] [address] Phone [phone] Care Team Providers Care Engineering Analyst Name Role Phone Felisa Julain D.O. AUTM [facility] AUTM [phone] Brian Oscar M.D. AUTM [phone] Problems Active Problems Provider Date Type 2 [...] Williamson Onset: 08/03/2015 Atherosclerotic heart disease of [place] coronary arter y without angina pectoris Felisa [...] J44.9 Felisa Julian D.O. 02/10/2020 Ulticare Pen [place]/29G X 12.7mm 29G X 12.7mm Misc for [...] 90caps J44.9 Rex Sandoval.O. 11/10/2018 Pulse Oximeter [facility] [place] one unit to monitor blood oxygen level [...] Capsules 1 by mouth every day 90caps Rex Williamson.OMelody Immunizations Description No Information Available Vital Signs Date Vital Result Comment 08/22/2020 10:38am BP Systolic 134 mmHg BP Diastolic 64 mmHg Height 63.25 inches 5'3.25" Weight 237.50 lb BMI (Body Mass Index) 41.7 kg/m2 Heart Rate 80 /min Respiratory Rate 20 /min Body Temperature 97.2 F O2 % BldC Oximetry 98 % [place] Body Weight 115 lb 05/19/2020 10:56am BP Systolic 130 mmHg BP Diastolic 68 mmHg Height 63.25 inches 5'3.25" Weight 233.38 lb BMI (Body Mass Index) 41.0 kg/m2 Heart Rate 81 /min Respiratory Rate 20 /min Body Temperature 97.8 F O2 % BldC Oximetry 95 % [place] Body Weight 115 lb Results Test Acquired Date Facility Test Result H/L Range Note Inhouse Ua 08/22/2020 Inhouse Inhouse Leukocytes ++ Inhouse Nitrite + Inhouse Urobilinogen + Inhouse Protein neg Inhouse PH 5 Inhouse Hemoglobin neg Inhouse Specific [place] 1.025 Inhouse Ketones neg Inhouse Bilirubin neg Inhouse Glucose neg Laboratory test finding 08/22/[address] [id number] [phone] Urine Culture FULL REPORT IN L <SEE NOTE> Normal 1 CBC With Differential 05/19/[address] [id number] [phone] White Blood Count 6.7 10 Normal 4.0-10.0 [...] Lymph % 21.5 % Low 24.0-44.0 [place] % 10.4 % High 0.0-5.0 Eos % 9.2 % High 0.0-3.0 Baso % 1.1 % High 0.0-1.0 Immature Granulocyte % 0.3 % Normal 0-3.0 Nucleated Red Blood Cell % 0.0 % Normal 0-0 Neutrophils # 3.8 10 Normal 1.5-8.5 Lymph # 1.4 10 Low 1.5-5.0 [place] # 0.7 10 Normal 0.0-0.8 Eos # 0.6 10 High 0.0-0.5 Baso # 0.1 10 Normal 0.0-0.2 Comprehensive Metabolic Profil 05/19/[address] [address] [phone] Glucose, Fasting 128 mg/dL High 70-100 Blood Urea Nitrogen 37 mg/dL High 7-18 Creatinine For GFR 1.38 mg/dL High 0.55-1.30 Glomerular Filtration Rate 39.3 Normal >39 2 Sodium Level 139 mEq/L Normal 136-145 Potassium [...] Ratio 1.2 Normal 1.2-2.2 Hemoglobin A1c 05/19/2020 [facility] nter [address] [place] [address] [phone] Hemoglobin A1c 7.6 % Normal 3 Estimated Average Glucose 171 mg/dL High 60-110 Laboratory test finding 05/19/2020 [facility] [address] [place] [address] [phone] Uric Acid 7.8 mg/dL High 2.6-6.0 Lipid Panel 05/19/2020 [facility] nter [address] [place] [address] [phone] Triglycerides Level 139 mg/dL Normal <150 Cholesterol Level 98 mg/dL Normal <200 HDL Cholesterol 36 mg/dL Low >40 LDL Cholesterol 34 mg/dL Normal <100 Non-HDL-C 62 mg/dL Normal Cholesterol Risk Ratio 2.722 Normal <5 1 FULL REPORT IN LAB NOTES (Nam Holland and Emani). ORGANISM 1: KLEBSIELLA PNEUMONIAE COLONY COUNT >100,000 ORGANISM 1: KLEBSIELLA PNEUMONIAE KLEBSIELLA PNEUMONIAE: REACTION TRIMETHOPRIM/SULFAMETHOXAZOLE IV 160mg TMP & 800mg SMXq6h <=20 S TRIMETHOPRIM/SULFAMETHOXAZOLE PO Bactrim DS Bid <=20 S AMPICILLIN IV 500mg q6h 16 R AMPICILLIN PO 500mg q6h fasting 16 R GENTAMICIN IV 80mg q8h <=1 S NITROFURANTOIN PO 100mg BID 32 S CEFAZOLIN IV 1gm q8h <=4 S LEVOFLOXACIN IV 500mg qd <=0.12 S LEVOFLOXACIN PO 250mg qd <=0.12 S LEVOFLOXACIN PO 500mg qd <=0.12 S TOBRAMYCIN IV 80mg q8h <=1 S CEFTRIAXONE IV 1gm q24h <=1 S CEFTAZIDIME IV 1gm q8h <=1 S AMPICILLIN/SULBACTAM IV 1.5g q6h <=2 S PIPERACILLIN/TAZOBACTAM IV 2.25 gm q6h <=4 S AZTREONAM IV 1gm q8h <=1 S ERTAPENEM IV 1gm qd <=0.5 S MEROPENEM IV 1 gm q8h <=0.25 S MEROPENEM IV 500 mg q8h <=0.25 S TIGECYCLINE IV 50mg q12h <=0.5 S CEFEPIME IV 1 gm q12h <=1 S CEFEPIME IV 2 gm q12h <=1 S EXTD BRD SPCTRM BETA LACTAMASE IV NEGATIVE FOR ESBL 2 Units are mL/min/1.73 m2 Chronic Kidney Disease Staging per NKF: Stage I & II GFR >=60 Normal to Mildly Decreased Stage III GFR 30-59 Moderately Decreased Stage IV GFR 15-29 Severely Decreased Stage V GFR <15 Very Little GFR Left ESRD GFR <15 on ANESTHESIA DIRECTOR 3 REFERENCE RANGES: <=5.6% NORMAL 5.7-6.4% SUGGESTS IMPAIRED GLUCOSE META BOLISM/PREDIABETIC >= 6.5% ABNORMAL Procedures Date Code Description Status 05/25/2020 [id number] Mammogram Completed Medical Devices Description No Information Available Encounters Type Date Location Provider Dx Diagnosis Office Visit 08/22/2020 10:20a [facility] GERARDO Pruitt 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 N18.30 Chronic kidney disease, stag e 3 unspecified E78.2 Mixed hyperlipidemia I25.10 Athscl heart disease of [place] coronary artery w/o ang pctrs G47.33 Obstructive sleep apnea (mani lt) (pediatric) J44.9 Chronic obstructive pulmonar y disease, unspecified Z79.4 FPC (current) use of i nsulin Z79.82 terminal carman (current) use of a spirin Z79.84 FPC (current) use of o ral hypoglycemic drugs R35.0 Frequency of micturition Office Visit 05/19/2020 11:00a [facility] GERARDO Pruitt 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 N18.30 Chronic kidney disease, stag e 3 unspecified E78.2 Mixed hyperlipidemia I25.10 Athscl heart disease of [place] coronary artery w/o ang pctrs G47.33 Obstructive sleep apnea (mani lt) (pediatric) J44.9 Chronic obstructive pulmonar y disease, unspecified Z79.4 terminal carman (current) use of i nsulin Z79.82 FPC (current) use of a spirin Z79.84 terminal carman (current) use of o ral hypoglycemic drugs Z79.899 Other filler leaf cutter long (current) dr adrienne ramirez H91.93 Unspecified hearing loss, bi lateral Z12.31 [...] Agustin 08/22/2020 I25.10 Atherosclerotic heart disease of [place] coronary artery with GERARDO Pruitt 08/22/2020 G47.33 Obstructive sleep apnea (adult) (pediatric) GERARDO Pruitt 08/22/2020 J44.9 Chronic obstructive pulmonary di sease, unspecified GERARDO Pruitt 08/22/2020 Z79.4 terminal carman (current) use of insul in GERARDO Pruitt 08/22/2020 Z79.82 FPC (current) use of aspir in GERARDO Pruitt 08/22/2020 Z79.84 FPC (current) use of oral hypoglycemic drugs GERARDO Pruitt 08/22/2020 R35.0 Frequency of micturition GERARDO Pruitt 05/19/2020 E11.22 Type 2 diabetes mellitus with di abetic chronic kidney diseas GERARDO Pruitt 05/19/2020 N18.30 Chronic kidney disease, stage 3 unspecified GERARDO Pruitt 05/19/2020 E78.2 Mixed hyperlipidemia GERARDO Agustin 05/19/2020 I25.10 Atherosclerotic heart disease of [place] coronary artery with GERARDO Pruitt 05/19/2020 G47.33 Obstructive sleep apnea (adult) (pediatric) GERARDO Pruitt 05/19/2020 J44.9 Chronic obstructive pulmonary di sease, unspecified GERARDO Pruitt 05/19/2020 Z79.4 terminal carman (current) use of insul in GERARDO Pruitt 05/19/2020 Z79.82 terminal carman (current) use of aspir in GERARDO Pruitt 05/19/2020 Z79.84 FPC (current) use of oral hypoglycemic drugs GERARDO Pruitt 05/19/2020 Z79.899 Other retirement (current) drug t herapy GERARDO Pruitt 05/19/2020 H91.93 Unspecified hearing loss, bilate ral GERARDO Pruitt 05/19/2020 Z12.31 Encounter for screen ing mammogram for malignant neoplasm of breast GERARDO Pruitt 05/19/2020 Z12.11 Encounter for screening for dio gnant neoplasm of colon GERARDO Pruitt Plan of Treatment Future Appointment(s):* 11/23/2020 11:00 am - GERARDO Pruitt at [facility] Functional Status Description No Information Available Mental Status Description No Information Available Referrals Refer to Reason for Referral Status Appt Date Brian Oscar M.D. routine colonoscopy. Closed [address] [place] [address] [phone]
--- OUTSIDE RECORDS SUMMARY | 2020-09-15 08:30 | CCD ---
Author Author [facility] Organization [facility] Address Unknown Phone Unavailable Care Team Providers Care Operator Vacuum Name Role Phone AMALIA, KETTY ANGELIKA SPORTS COMMENTATOR-C Unavailable Unavailable AMALIA, KETTY ANGELIKA SPORTS COMMENTATOR-C Unavailable Unavailable AMALIA, KETTY ANGELIKA SPORTS COMMENTATOR-C Unavailable Unavailable AMALIA, KETTY ANGELIKA SPORTS COMMENTATOR-C Unavailable Unavailable AMALIA, KETTY ANGELIKA SPORTS COMMENTATOR-C Unavailable Unavailable AMALIA, KETTY ANGELIKA SPORTS COMMENTATOR-C Unavailable Unavailable AMALIA, KETTY ANGELIKA SPORTS COMMENTATOR-C Unavailable Unavailable AMALIA, KETTY ANGELIKA SPORTS COMMENTATOR-C Unavailable Unavailable AMALIA, KETTY ANGELIKA SPORTS COMMENTATOR-C Unavailable Unavailable AMALIA, KETTY ANGELIKA SPORTS COMMENTATOR-C Unavailable Unavailable AMALIA, KETTY ANGELIKA SPORTS COMMENTATOR-C Unavailable Unavailable AMALIA, KETTY ANGELIKA SPORTS COMMENTATOR-C Unavailable Unavailable AMALIA, KETTY ANGELIKA SPORTS COMMENTATOR-C Unavailable Unavailable AMALIA, KETTY ANGELIKA SPORTS COMMENTATOR-C Unavailable Unavailable AMALIA, KETTY ANGELIKA SPORTS COMMENTATOR-C Unavailable Unavailable FACUNDO YOUNG MD Unavailable Unavailable HANNAH, FACUNDO LUCERO Unavailable Unavailable HANNAH, FACUNDO LUCERO Unavailable Unavailable HANNAH, FACUNDO LUCERO Unavailable Unavailable HANNAH, FACUNDO LUCERO Unavailable Unavailable HANNAH, FACUNDO LUCERO Unavailable Unavailable HANNAH, FACUNDO LUCERO Unavailable Unavailable HANNAH, FACUNDO LUCERO Unavailable Unavailable HANNAH, FACUNDO LUCERO Unavailable Unavailable HANNAH, FACUNDO LUCERO Unavailable Unavailable HANNAH, FACUNDO LUCERO Unavailable Unavailable HANNAH, FACUNDO LUCERO Unavailable Unavailable HANNAH, FACUNDO LUCERO Unavailable Unavailable HANNAH, FACUNDO LUCERO Unavailable Unavailable HANNAH, FACUNDO LUCERO Unavailable Unavailable HANNAH, FACUNDO LUCERO Unavailable Unavailable HANNAH, FACUNDO LUCERO Unavailable Unavailable HANNAH, FACUNDO LUCERO Unavailable Unavailable HANNAH, FACUNDO LUCERO Unavailable Unavailable HANNAH, FACUNDO LUCERO Unavailable Unavailable HANNAH, FACUNDO LUCERO Unavailable Unavailable HANNAH, FACUNDO LUCERO Unavailable Unavailable HANNAH, FACUNDO LUCERO Unavailable Unavailable HANNAH, FACUNDO LUCERO Unavailable Unavailable HANNAH, FACUNDO LUCERO Unavailable Unavailable HANNAH, FACUNDO LUCERO Unavailable Unavailable HANNAH, FACUNDO LUCERO Unavailable Unavailable HANNAH, FACUNDO LUCERO Unavailable Unavailable HANNAH, FACUNDO LUCERO Unavailable Unavailable HANNAH, FACUNDO LUCERO Unavailable Unavailable HANNAH, FACUNDO LUCERO Unavailable Unavailable HANNAH, FACUNDO LUCERO Unavailable Unavailable HANNAH, FACUNDO LUCERO Unavailable Unavailable HANNAH, FACUNDO LUCERO Unavailable Unavailable HANNAH, FACUNDO LUCERO Unavailable Unavailable HANNAH, FACUNDO LUCERO Unavailable Unavailable HANNAH, FACUNDO LUCERO Unavailable Unavailable HANNAH, FACUNDO LUCERO Unavailable Unavailable HANNAH, FACUNDO LUCERO Unavailable Unavailable HANNAH, FACUNDO LUCERO Unavailable Unavailable HANNAH, FACUNDO LUCERO Unavailable Unavailable HANNAH, FACUNDO LUCERO Unavailable Unavailable HANNAH, FACUNDO LUCERO Unavailable Unavailable HANNAH, FACUNDO LUCERO Unavailable Unavailable HANNAH, FACUNDO LUCERO Unavailable Unavailable HANNAH, FACUNDO LUCERO Unavailable Unavailable HANNAH, FACUNDO LUCERO Unavailable Unavailable HANNAH, FACUNDO LUCERO Unavailable Unavailable HANNAH, FACUNDO LUCERO Unavailable Unavailable HANNAH, FACUNDO LUCERO Unavailable Unavailable HANNAH, FACUNDO LUCERO Unavailable Unavailable HANNAH, FACUNDO LUCERO Unavailable Unavailable HANNAH, FACUNDO LUCERO Unavailable Unavailable HANNAH, FACUNDO LUCERO Unavailable Unavailable O'paolo, A Magnus PA Unavailable Unavailable O'paolo, A Magnus PA Unavailable Unavailable O'paolo, A Magnus PA Unavailable Unavailable O'paolo, A Magnus PA Unavailable Unavailable O'paolo, A Magnus PA Unavailable Unavailable O'paolo, A Magnus PA Unavailable Unavailable O'paolo, A Magnus PA Unavailable Unavailable O'paolo, A Magnus PA Unavailable Unavailable O'paolo, A Magnus PA Unavailable Unavailable O'paolo, A Magnus PA Unavailable Unavailable O'paolo, A Magnus PA Unavailable Unavailable O'paolo, A Magnus PA Unavailable Unavailable O'paolo, A Magnus PA Unavailable Unavailable O'paolo, A Magnus PA Unavailable Unavailable O'paolo, A Magnus PA Unavailable Unavailable O'paolo, A Magnus PA Unavailable Unavailable O'paolo, A Magnus PA Unavailable Unavailable O'paolo, A Magnus PA Unavailable Unavailable O'paolo, A Magnus PA Unavailable Unavailable O'paolo, A Magnus PA Unavailable Unavailable O'paolo, A Magnus PA Unavailable Unavailable O'paolo, A Magnus PA Unavailable Unavailable O'paolo, A Magnus PA Unavailable Unavailable O'paolo, A Magnus PA Unavailable Unavailable O'paolo, A Magnus PA Unavailable Unavailable O'paolo, A Magnus PA Unavailable Unavailable O'paolo, A Magnus PA Unavailable Unavailable O'paolo, A Magnus PA Unavailable Unavailable O'paolo, A Magnus PA Unavailable Unavailable O'paolo, A Magnus PA Unavailable Unavailable O'paolo, A Magnus PA Unavailable Unavailable O'paolo, A Magnus PA Unavailable Unavailable Re-disclosure Warning The records that you are about to access may contain information from federally-assisted alcohol or drug abuse programs. If such information is present, then the following federally mandated warning applies: This information has been disclosed to you from records protected by federal confidentiality rules (42 CFR part 2). The federal rules prohibit you from making any further disclosure of this information unless further disclosure is expressly permitted by the written consent of the person to whom it pertains or as otherwise permitted by 42 CFR part 2. A general authorization for the release of medical or other information is NOT sufficient for this purpose. The Federal rules restrict any use of the information to criminally investigate or prosecute any alcohol or drug abuse patient.The records that you are about to access may contain highly sensitive health information, the redisclosure of which is protected by Article 27-F of the [facility] Public Health law. If you continue you may have access to information: Regarding HIV / AIDS; Provided by facilities licensed or operated by the [facility] Office of Mental Health; or Provided by the [facility] Office for People With Developmental Disabilities. If such information is present, then the following [facility] mandated warning applies: This information has been disclosed to you from confidential records which are protected by state law. State law prohibits you from making any further disclosure of this information without the specific written consent of the person to whom it pertains, or as otherwise permitted by law. Any unauthorized further disclosure in violation of state law may result in a fine or alf sentence or both. A general authorization for the release of medical or other information is NOT sufficient authorization for further disc losure. Family History Family Member Name Family Member Gender Family Member Status Date o f Status Description Data Source(s) Unknown Unknown Problem [facility] ([facility] Unknown Unknown Problem [facility] ([facility] Unknown Female Problem [facility] ([facility]) Encounters Encounter Providers Location Date Indications Data Source(s ) Outpatient Attender: FACUNDO YOUNG MD [email or web address] 12:00:00 AM EST - 09/07/2020 10:28:41 AM EST [facility] Outpatient Attender: Maguns CARRILLO [facility] 08/22/2020 09:20:00 AM EST [facility] ([facility]) Outpatient Attender: Magnus CARRILLO [facility] 05/19/2020 11:00:00 AM EDT [facility] ([facility]) Outpatient Attender: Magnus CARRILLO [facility] 02/17/2020 03:30:00 PM EDT [facility] ([facility]) Outpatient Attender: ANGELIKA Sosa/Carlo/Mauro hensley 08/31/2019 01:45:00 PM EST [facility] ([facility] Medications Medication Brand Name Start Date Product Form Dose Route Admi nistrative Instructions Pharmacy Instructions Status Indications Reaction Description Data Source(s) Cephalexin 500 MG Oral Capsule [Keflex] Keflex 08/22/2020 12:00:0 0 AM EST ORAL active [facility] ([facility] Famotidine 20 MG Oral Tablet famotidine (PEPCID) 20 MG tablet famotidine (PEPCID) 20 MG tablet 08/04/2020 12:00:00 AM EST a ctive [facility] Aspirin 81 MG Chewable Tablet aspirin 81 MG chewable t ablet aspirin 81 MG chewable tablet 08/04/2020 12:00:00 AM EST active [facility] Commode 3-In-1 06/17/2020 12:00:00 AM EDT act estefani [facility] ([facility]) Walker Auto Glides/5 Adjustment /-08/26" 02/10/2020 12:0 0:00 AM EDT active [facility] ([facility]) Metformin hydrochloride 1000 MG Oral Tab let metFORMIN (GLUCOPHAGE) 1000 MG tablet metFORMIN (GLUCOPHAGE) 1000 MG tablet 05/30/2019 12:00:00 AM EDT aborted [facility] Ramipril 2.5 MG Oral Capsule ramipril (ALTACE) 2.5 MG capsule ramipril (ALTACE) 2.5 MG capsule 2.5 mg Oral aborted Take 2.5 mg by mouth daily [facility] Aspirin 325 MG Oral Tablet aspirin 325 MG tablet aspirin 325 MG tablet aborted ASPIRIN 325 MG TABS [facility] Insurance Providers Payer name Policy type / Coverage type Policy ID Covered alliance party ID Covered alliance party's relationship to perez Policy Perez Plan Information MEDICARE COMPLETE [id number] SP [id number] FOR LIFE [id number] MEDICARE [id number] Paty [id number] [facility] [id number] Paty [id number] [id number] MEDICARE [id number] MEDICARE [id number] MEDICARE [id number] Paty [id number] FOR LIFE O [id number] S [id number] [facility]IC[facility] [id number] S [id number] FOR LIFE HEA [id number] S [id number] [facility] HEA [id number] S [id number] Health Net Fed Standard Health Maintenance Organization (HMO) [id number] Family Dependent [id number] [place] Medicare Primary [id number] Self [id number] WPS For Life Medigap Part B [id number] Family Depende nt [id number] Unitedhealthcare Medicare Commercial [id number] Self [id number] Health Net Fed Standard Health Maintenance Organization (HMO) [id number] Family Dependent [id number] [place] Medicare Primary [id number] Self [id number] WPS For Life Medigap Part B [id number] Family Depende nt [id number] MEDICARE COMPLETE [id number] SP [id number] Health Net Fed Standard Health Maintenance Organization (HMO) [id number] Family Dependent [id number] Medicare [place]/[facility] Medicare Primary [id number] Self [id number] WPS For Life Medigap Part B [id number] Family Depende nt [id number] MEDICARE [id number] SP [id number] A Formerly [facility] Commercial [id number] Self [id number] [place] Primary [id number] Self [id number] MEDICARE [id number] SP [id number] A FOR LIFE [id number] Formerly [facility] Commercial [id number] Self [id number] [place] Primary [id number] Self [id number] Formerly [facility] Commercial [id number] Self [id number] [place] Primary [id number] Self [id number] Formerly [facility] Commercial [id number] Self [id number] [place] Primary [id number] Self [id number] Formerly [facility] Commercial [id number] Self [id number] [place] Primary [id number] Self [id number] Formerly [facility] Commercial [id number] Self [id number] [place] Primary [id number] Self [id number] For Life WPS Medigap Part B Self Medicare [place] Gov[place] Servi Medicare Primary Self Formerly [facility] Commercial Self [place] Medicare Primary Self [facility] [id number] SELF PAY UNAVAILABLE SP UNAVAILA BLE MEDICARE [id number] Paty [id number] A For Life [id number] MEDICARE P [id number] S [id number] A SELF PAY 2 UNAVAILABLE 1 UNAVAILA BLE 6 [id number] MEDICARE 4 [id number] 1 [id number] A [place] [id number] 12 [id number] Problems, Conditions, and Diagnoses Code Display Name Description Problem Type Effective Dates Data Source(s) Z01.818 Pre-op evaluation Pre-op evaluation [id number] 09/07/2020 12:00:[address] 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 M19.90 Unspecified osteoarthritis, unspecified site Unspecified osteoarthritis, unspecified Diagnosis 09/07/2020 09:57:[address] [facility] J44.9 Chronic obstructive pulmonary disease, u nspecified Chronic obstructive pulmonary disease, u Diagnosis 09/07/2020 09:57:[address] [facility] E11.59 Type 2 diabetes mellitus with other circ ulatory complications Type 2 diabetes mellitus with other circ Diagnosis 09/07/2020 09:57:[address] [facility] E66.9 Obesity, unspecified Obesity, unspecified Diagnosis 09/07/2020 09:57:[address] [facility] I10 Essential (primary) hypertension Essential (primary) h ypertension Diagnosis 09/07/2020 09:57:[address] [facility] E78.00 Pure hypercholesterolemia, unspecified P ure hypercholesterolemia, unspecified Diagnosis 09/07/2020 09:57:[address] 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 Surgeries/Procedures Procedure Description Date Indications Data Source(s) POCT AMB EKG POCT AMB EKG Routine 09/07/2020 10:27 AM EST Coronary artery disease due to calcified coronary lesion 09/07/2020 03:27:00 PM EST Coronary artery disease due to calcified coronary lesi on [facility] Coronary artery disease due to calcified coronary lesion Mammography (procedure) 05/25/2020 12:00:00 AM EDT [facility] ([facility]) Results ID Date Data Source [id number] 09/10/2020 11:30:00 AM EST [facility] Name Value Range Interpretation Code Description Data Jaclyn rce(s) Supporting Document(s) SARS coronavirus 2 RNA Not Detected [facility] [place] This lab was ordered by [facility] and reported by [facility]. ID Date Data Source [id number] 08/22/2020 11:42:00 AM EST [facility] ([facility]) Name Value Range Interpretation Code Description Data Jaclyn rce(s) Supporting Document(s) Inhouse Leukocytes Laboratory test result [facility] ([facility]) Inhouse Nitrite Laboratory test result [facility] ([facility]) Inhouse Protein Laboratory test result [facility] ([facility]) Inhouse PH 5 [facility] ([facility]) Inhouse Urobilinogen Laboratory test result [facility] ([facility]) Inhouse Ketones Laboratory test result [facility] ([facility]) Inhouse Specific [place] 1.025 [facility] ([facility]) Inhouse Hemoglobin Laboratory test result [facility] ([facility]) Inhouse Bilirubin Laboratory test result [facility] ([facility]) Inhouse Glucose Laboratory test result [facility] ([facility]) ID Date Data Source [id number] 08/22/2020 11:17:00 AM EST [facility] ([facility]) Name Value Range Interpretation Code Description Data Jaclyn rce(s) Supporting Document(s) Bacteria identified in Urine by Culture Laboratory test result Normal (applies to non-numeric results) [facility] ([facility]) <content>FULL REPORT IN LAB NOTES ([facility] a nd [facility]).</content>
<content></content>
<content>ORGANISM 1: KLEBSIELLA PNEUMONIAE</content>
<content></content>
<content>COLONY COUNT >100,000</content>
<content></content>
<content></content>
<content> ORGANISM 1: KLEBSIELLA PNEUMONIAE</content>
<content></content>
<content>KLEBSIELLA PNEUMONIAE: REACTION</content>
<content>TRIMETHOPRIM/SULFAMETHOXAZOLE IV 160mg TMP & 800mg SMXq6h <=20 S</content>
<content> TRIMETHOPRIM/SULFAMETHOXAZOLE PO Bactrim DS Bid <=20 S</content>
<content>AMPICILLIN IV 500mg q6h 16 R</content>
<content>AMPICILLIN PO 500mg q6h fasting 16 R</content>
<content>GENTAMICIN IV 80mg q8h <=1 S</content>
<content>NITROFURANTOIN PO 100mg BID 32 S</content>
<content>CEFAZOLIN IV 1gm q8h <=4 S</content>
<content> LEVOFLOXACIN IV 500mg qd <=0.12 S</content>
<content>LEVOFLOXACIN PO 250mg qd <=0.12 S</content>
<content>LEVOFLOXACIN PO 500mg qd <=0.12 S</content>
<content>TOBRAMYCIN IV 80mg q8h <=1 S</content>
<content>CEFTRIAXONE IV 1gm q24h <=1 S</content>
<content>CEFTAZIDIME IV 1gm q8h <=1 S</content>
<content> AMPICILLIN/SULBACTAM IV 1.5g q6h <=2 S</content>
<content>PIPERACILLIN/TAZOBACTAM IV 2.25 gm q6h <=4 S</content>
<content>AZTREONAM IV 1gm q8h <=1 S</content>
<content>ERTAPENEM IV 1gm qd <=0.5 S</content>
<content>MEROPENEM IV 1 gm q8h <=0.25 S</content>
<content>MEROPENEM IV 500 mg q8h <=0.25 S</content>
<content>TIGECYCLINE IV 50mg q12h <=0.5 S</content>
<content>CEFEPIME IV 1 gm q12h <=1 S</content>
<content>CEFEPIME IV 2 gm q12h <=1 S</content>
<content>EXTD BRD SPCTRM BETA LACTAMASE IV NEGATIVE FOR ESBL</content>
<content></content> ID Date Data Source [id number] 07/02/2020 09:20:00 AM EST [facility] Name Value Range Interpretation Code Description Data Jaclyn rce(s) Supporting Document(s) SARS coronavirus 2 RNA [facility] This lab was ordered by [facility] and reported by [facility]. ID Date Data Source [id number] 05/19/2020 12:31:00 PM EDT [facility]) Name Value Range Interpretation Code Description Data Jaclyn rce(s) Supporting Document(s) Triglycerides Level 139 mg/dL Normal (applies to non-nume kamryn results) [facility] ([facility]) LDL Cholesterol 34 mg/dL Normal (applies to non-numeric results) [facility] ([facility]) Non-HDL-C 62 mg/dL Normal (applies to non-numeric resul ts) [facility] ([facility]) HDL Cholesterol 36 mg/dL Below low normal [facility] ([facility]) Cholesterol Level 98 mg/dL Normal (applies to non-numeri c results) [facility] ([facility]) Cholesterol Risk Ratio 2.722 Normal (applies to non-n umeric results) [facility] ([facility]) ID Date Data Source [id number] 05/19/2020 12:31:00 PM EDT [facility] ([facility]) Name Value Range Interpretation Code Description Data Jaclyn rce(s) Supporting Document(s) Urate [Mass/volume] in Serum or Plasma 7.8 mg/dL 2.6-6.0 Above hi gh normal [facility] ([facility]) ID Date Data Source [id number] 05/19/2020 12:31:00 PM EDT [facility] ([facility]) Name Value Range Interpretation Code Description Data Jaclyn rce(s) Supporting Document(s) Hemoglobin A1c 7.6 % Normal (applies to non-numeric r esults) [facility] ([facility]) <content>REFERENCE RANGES:</content><br/ ><content></content>
<content><=5.6% NORMAL</content>
<content>5.7-6.4% SUGGESTS IMPAIRED GLUCOSE METABOLISM/PREDIABETIC</content>
<content>>= 6.5% ABNORMAL</content>
<content></content> Estimated Average Glucose 171 mg/dL 60-110 Above high normal [facility] ([facility]) ID Date Data Source [id number] 05/19/2020 12:31:00 PM EDT [facility] ([facility]) Name Value Range Interpretation Code Description Data Jaclyn rce(s) Supporting Document(s) Glucose, Fasting 128 mg/dL 70-100 Above high normal [facility] ([facility]) Glomerular Filtration Rate 39.3 Normal (applies to n on-numeric results) [facility] ([facility]) <content>Units are mL/min/1.73 m2</content>
<content></content>
<content>Chronic Kidney Disease Staging per NKF:</content>
<content></content>
<content>Stage I & II GFR >=60 Normal to Mildly Decreased</content>
<content>Stage III GFR 30- 59 Moderately Decreased</content>
<content>Stage IV GFR 15-29 Severely Decreased</content>
<content>Stage V GFR <15 Very Little GFR Left</content>
<content>ESRD GFR <15 on [employer]RO[employer]PECT[employer]</content>
<content></content> Creatinine For GFR 1.38 mg/dL 0.55-1.30 Above high normal [facility] ([facility]) Blood Urea Nitrogen 37 mg/dL 7-18 Above high normal [facility] Potassium Serum 4.2 meq/L 3.5-5.1 Normal (applies to non-numeric results) [facility] ([facility]) Sodium Level 139 meq/L 136-145 Normal (applies to non-numeric res ults) [facility] ([facility]) Chloride Level 103 meq/L 98-107 Normal (applies to non-numeric r esults) [facility] ([facility]) Calcium Level 9.7 mg/dL 8.8-10.2 Normal (applies to non-numeric re sults) [facility] ([facility]) Carbon Dioxide Level 29 meq/L 21-32 Normal (applies to non-num lula results) [facility] ([facility]) Anion Gap 7 meq/L 8-16 Below low normal [facility] ( [facility]) Alkaline Phosphatase 88 U/L 45-117 Normal (applies to non-num lula results) [facility] ([facility]) Ast/Sgot 10 U/L 7-37 Normal (applies to non-numeric resul ts) [facility] ([facility]) Alt/SGPT 16 U/L 12-78 Normal (applies to non-numeric resul ts) [facility] ([facility]) Bilirubin,Total 0.5 mg/dL 0.2-1.0 Normal (applies to non-numeric results) [facility] ([facility]) Total Protein 7.0 GM/DL 6.4-8.2 Normal (applies to non-numeric re sults) [facility] ([facility]) Albumin 3.8 GM/DL 3.2-5.2 Normal (applies to non-numeric resul ts) [facility] ([facility]) Albumin/Globulin Ratio 1.2 1.2-2.2 Normal (applies to non-n umeric results) [facility] ([facility]) ID Date Data Source [id number] 05/19/2020 12:31:00 PM EDT [facility] ([facility]) Name Value Range Interpretation Code Description Data Jaclyn rce(s) Supporting Document(s) White Blood Count 6.7 10 4.0-10.0 Normal (applies to non-numeri c results) [facility] ([facility] [facility] Hematocrit 38.7 % 36.0-47.0 Normal (applies to non-numeric resul ts) [facility] ([facility] Hemoglobin 11.9 g/dL 12.0-15.5 Below low normal [facility] ( [facility] Red Blood Count 4.28 10 4.00-5.40 Normal (applies to non-numeric results) [facility] ([facility] Mean Corpuscular Hemoglobin 27.8 pg 27.0-33.0 Norm al (applies to non-numeric results) [facility] ([facility] Mean Corpuscular Volume 90.4 fl 80.0-96.0 Normal ( applies to non-numeric results) [facility] ([facility] Mean Corpuscular HGB Conc 30.7 g/dL 32.0-36.5 Below low normal [facility] ([facility] Red Cell Distribution Width 13.1 % 11.5-14.5 Norm al (applies to non-numeric results) [facility] ([facility]) Platelet Count, Automated 276 10 150-450 Normal (applies to non-numeric results) [facility] ([facility] Neutrophils % 57.5 % 36.0-66.0 Normal (applies to non-numeric re sults) [facility] ([facility] Lymph % 21.5 % 24.0-44.0 Below low normal [facility] ( [facility]) Eos % 9.2 % 0.0-3.0 Above high normal [facility] ([facility]) Teller % 10.4 % 0.0-5.0 Above high normal [facility] ([facility] Nucleated Red Blood Cell % 0.0 % 0-0 Normal (applies to n on-numeric results) [facility] ([facility] Neutrophils # 3.8 10 1.5-8.5 Normal (applies to non-numeric re sults) [facility] ([facility] Baso % 1.1 % 0.0-1.0 Above high normal [facility] ([facility]) Immature Granulocyte % 0.3 % 0-3.0 Normal (applies to non-n umeric results) [facility] ([facility] Eos # 0.6 10 0.0-0.5 Above high normal [facility] ([facility] Lymph # 1.4 10 1.5-5.0 Below low normal [facility] ( [facility]) Teller # 0.7 10 0.0-0.8 Normal (applies to non-numeric resul ts) [facility] ([facility] Baso # 0.1 10 0.0-0.2 Normal (applies to non-numeric resul ts) [facility] ([facility] Procedure Social History Code Duration Value Status Description Data Source(s ) Alcohol intake 09/07/2020 12:00:00 AM EST No completed [facility] Smoking 09/07/2020 12:00:00 AM EST Never smoker completed Never s moker [facility] 11/26/2019 12:00:00 AM EDT Patient has never smoked co mpleted Patient has never smoked [facility] ([facility], ) Vital Signs ID Date Data Source UNK Name Value Range Interpretation Code Description Data Source(s) Oxygen saturation in Arterial blood by Pulse oximetry 98 % 98 % [facility] Body mass index (BMI) [Ratio] 49.88 kg/m2 49.88 kg/m2 [facility] Body weight 119.75 kg 119.75 kg [facility] Body height 154.9 cm 154.9 cm [facility] Heart rate 68 /min 68 /min [facility] Diastolic blood pressure 80 mm[Hg] 80 mm[Hg] [facility] Systolic blood pressure 128 mm[Hg] 128 mm[Hg] [facility] [place] body weight 115 [lb_av] 115 [lb_av] [facility] ([facility] Oxygen saturation in Arterial blood by Pulse oximetry 98 % 98 % [facility] ([facility] Body temperature 97.2 [degF] 97.2 [degF] [facility] ([facility] Respiratory rate 20 /min 20 /min [facility] ( [facility] Heart rate 80 /min 80 /min [facility] ([facility] Body mass index (BMI) [Ratio] 41.7 kg/m2 41.7 k g/m2 [facility] ([facility] Body weight 237.50 [lb_av] 237.50 [lb_av] [facility] ([facility] Body height 63.25 [in_i] 63.25 [in_i] [facility] ([facility]) 5'3.25" Diastolic blood pressure 64 mm[Hg] 64 mm[Hg] [facility] ([facility] Systolic blood pressure 134 mm[Hg] 134 mm[Hg] [facility] [place] body weight 115 [lb_av] 115 [lb_av] [facility] ([facility]) Oxygen saturation in Arterial blood by Pulse oximetry 95 % 95 % [facility] ([facility]) Body temperature 97.8 [degF] 97.8 [degF] [facility] ([facility] Respiratory rate 20 /min 20 /min [facility] ( [facility]) Heart rate 81 /min 81 /min [facility] ([facility] Body mass index (BMI) [Ratio] 41.0 kg/m2 41.0 k g/m2 [facility] ([facility] Body weight 233.38 [lb_av] 233.38 [lb_av] [facility] ([facility] Body height 63.25 [in_i] 63.25 [in_i] [facility] ([facility]) 5'3.25" Diastolic blood pressure 68 mm[Hg] 68 mm[Hg] [facility] ([facility]) Systolic blood pressure 130 mm[Hg] 130 mm[Hg] M [facility] ([facility]) [place] body weight 115 [lb_av] 115 [lb_av] [facility] ([facility]) Oxygen saturation in Arterial blood by Pulse oximetry 98 % 98 % [facility] Body temperature 98.6 [degF] 98.6 [degF] [facility] Respiratory rate 20 /min 20 /min [facility] Heart rate 63 /min 63 /min [facility] ([facility]) Body mass index (BMI) [Ratio] 42.5 kg/m2 42.5 k g/m2 [facility] ([facility]) Body weight 242.00 [lb_av] 242.00 [lb_av] [facility] ([facility]) Body height 63.25 [in_i] 63.25 [in_i] [facility] ([facility]) 5'3.25" Diastolic blood pressure 84 mm[Hg] 84 mm[Hg] [facility] ([facility]) Systolic blood pressure 134 mm[Hg] 134 mm[Hg] [facility] ([facility] Body weight 107.503 kg 107.503 kg [facility] ([facility]) Body mass index (BMI) [Ratio] 40.7 kg/m2 40.7 k g/m2 [facility] ([facility]) Body weight 237.00 [lb_av] 237.00 [lb_av] [facility] Body height 64 [in_i] 64 [in_i] [facility] ([facility]) 5'4" Body temperature 97.1 [degF] 97.1 [degF] [facility] ([facility]) Oxygen saturation in Arterial blood by Pulse oximetry 98 % 98 % [facility] ([facility]) Heart rate 72 /min 72 /min [facility] ([facility]) Diastolic blood pressure 80 mm[Hg] 80 mm[Hg] [facility] ([facility]) Systolic blood pressure 138 mm[Hg] 138 mm[Hg] [facility] Body weight 110.225 kg 110.225 kg [facility] ([facility]) Body mass index (BMI) [Ratio] 41.7 kg/m2 41.7 k g/m2 [facility] ([facility]) Body weight 243.00 [lb_av] 243.00 [lb_av] [facility]ANK T ([facility], ) Body height 64 [in_i] 64 [in_i] GEENA ([facility], ) 5'4" Oxygen saturation in Arterial blood by Pulse oximetry 98 % 98 % [facility] ([facility], ) Heart rate 67 /min 67 /min GEENA ([facility], ) Diastolic blood pressure 80 mm[Hg] 80 mm[Hg] [facility] ([facility], ) Systolic blood pressure 128 mm[Hg] 128 mm[Hg] M TONIE ([facility], ) Patient Treatment Plan of Care Planned Activity Planned Date Details Description Data Source (s) Famotidine 20 MG Oral Tablet 08/04/2020 12:00:[address] [facility] Aspirin 81 MG Chewable Tablet 08/04/2020 12:00:00 AM EST [facility] Metformin hydrochloride 1000 MG Oral Tablet 05/30/2019 12:00:00 AM EDT [facility] Aspirin 325 MG Oral Tablet [facility] Ramipril 2.5 MG Oral Capsule [facility]
[2020-09-15] MEDS ORDERED: ePHEDrine SULFATE 25 MG/5 ML(5MG/ML) SYRINGE As Ordered ONE (10:09)
--- NOTE | 2020-09-15 10:14 | ROOR ---
Patient Name: Erna Martines Procedure Date: 09/15/2020 9:43 AM Date of : 1940 Age: 80 Room: [facility] Gender: Female Note Status: Finalized Procedure: Colonoscopy Indications: Screening for colorectal malignant neoplasm Providers: Brian Oscar Jr, MD Referring MD: Felisa ROMAN DO Requesting Provider: Medicines: Propofol per Anesthesia Complications: No immediate complications. Procedure: Pre-Anesthesia Assessment: - Prior to the procedure, a History and Physical was performed, and patient medications and allergies were reviewed. The patient is competent. The risks and benefits of the procedure and the sedation options and risks were discussed with the patient. All questions were answered and informed consent was obtained. Patient identification and proposed procedure were verified by the physician and the nurse in the pre-procedure area and in the procedure room. Mental Status Examination: alert and oriented. Airway Examination: normal oropharyngeal airway and neck mobility. Respiratory Examination: clear to auscultation. CV Examination: normal. ASA Grade Assessment: II - A patient with mild systemic disease. After reviewing the risks and benefits, the patient was deemed in satisfactory condition to undergo the procedure. The anesthesia plan was to use moderate sedation / analgesia (conscious sedation). Immediately prior to administration of medications, the patient was re-assessed for adequacy to receive sedatives. The heart rate, respiratory rate, oxygen saturations, blood pressure, adequacy of pulmonary ventilation, and response to care were monitored throughout the procedure. The physical status of the patient was re-assessed after the procedure. The Colonoscope was introduced through the anus and advanced to the cecum, identified by appendiceal orifice and ileocecal valve. The colonoscopy was performed with moderate difficulty due to poor bowel prep with stool present. Successful completion of the procedure was aided by lavage. The patient tolerated the procedure well. The quality of the bowel preparation was poor. Findings: Multiple small and large-mouthed diverticula were found in the sigmoid colon. The rectum, recto-sigmoid colon, descending colon, transverse colon, ascending colon and cecum appeared normal. Impression: - Preparation of the colon was poor. - Diverticulosis in the sigmoid colon. - The rectum, recto-sigmoid colon, descending colon, transverse colon, ascending colon and cecum are normal. - No specimens collected. Recommendation: - Discharge patient to home (ambulatory). Procedure Code(s): --- Professional --- 17922, Colonoscopy, flexible; diagnostic, including collection of specimen(s) by brushing or washing, when performed (separate procedure) Diagnosis Code(s): --- Professional --- Z12.11, Encounter for screening for malignant neoplasm of colon K57.30, Diverticulosis of large intestine without perforation or abscess without bleeding CPT copyright 2019 [employer]. All rights reserved. The codes documented in this report are preliminary and upon auditing coder review may be revised to meet current compliance requirements. Brian Oscar MD Brian Oscar Jr, MD 09/15/2020 10:14:26 AM Electronically signed by Brian Oscar Jr, MD Number of Addenda: 0 Note Initiated On: 09/15/2020 9:43 AM Estimated Blood Loss: Estimated blood loss: none.
[2020-09-15 10:40] VITALS: BP 139/63
== END 2020-09-15 11:10 | disposition home or self-care (01) ==
LOC: M OPP 08:21
PROVIDERS: ATTEND Surgery
DX: Z12.11 Encounter for screening for malignant neoplasm of colon (principal); K57.30 Diverticulosis of large intestine without perforation or abscess without bleeding; I25.10 Atherosclerotic heart disease of native coronary artery without angina pectoris; I25.2 Old myocardial infarction; I12.9 Hypertensive chronic kidney disease with stage 1 through stage 4 chronic kidney disease, or unspecified chronic kidney disease; E78.5 Hyperlipidemia, unspecified; E11.9 Type 2 diabetes mellitus without complications; M19.90 Unspecified osteoarthritis, unspecified site; F32.9 Major depressive disorder, single episode, unspecified; J44.9 Chronic obstructive pulmonary disease, unspecified; G47.30 Sleep apnea, unspecified; N18.30 Chronic kidney disease, stage 3 unspecified; Z86.73 Personal history of transient ischemic attack (TIA), and cerebral infarction without residual deficits; Z95.1 Presence of aortocoronary bypass graft; Z95.5 Presence of coronary angioplasty implant and graft; Z88.8 Allergy status to other drugs, medicaments and biological substances; Z91.018 Allergy to other foods; Z79.4 Long term (current) use of insulin; Z79.82 Long term (current) use of aspirin; Z79.899 Other long term (current) drug therapy

== ENCOUNTER → 2020-11-23 | Outpatient (REF) | payer MEDICARE, OTHER ==
[~2020-11-23] MED LIST changes: -LIDOCAINE 2% 100MG/5ML SDV (FOR ANES.) As Ordered ONE; -NS 1,000 ML IV ONE; -propofoL 200 MG/20 ML VIAL As Ordered ONE
== END ==
LOC: M LAB REF 17:19
PROVIDERS: ATTEND Physician Assistant
DX: R35.0 Frequency of micturition (principal)

== ENCOUNTER 2021-01-01 15:45 | Inpatient (IN) | payer MEDICARE, OTHER ==
[~2021-01-01] VITALS: Ht 167.6 cm; Wt 102.5 kg
[2021-01-01 17:02] LABS: BASO # 0.1 10^3/uL (0.0-0.2); BASO % 0.5 % (0.0-1.0); EOS # 0.2 10^3/uL (0.0-0.5); EOS % 1.6 % (0.0-3.0); HEMATOCRIT 42.2 % (36.0-47.0); LYMPH # 0.9 10^3/uL (1.5-5.0); LYMPH % 7.1 % (24.0-44.0); MEAN CORPUSCULAR HEMOGLOBIN 26.6 pg (27.0-33.0); MEAN CORPUSCULAR HGB CONC 30.8 g/dl (32.0-36.5); MEAN CORPUSCULAR VOLUME 86.3 fl (80.0-96.0); MONO % 8.1 % (2.0-8.0); NEUTROPHILS # 10.3 10^3/uL (1.5-8.5); NEUTROPHILS % 81.7 % (36.0-66.0); PLATELET COUNT, AUTOMATED 225 10^3/uL (150-450); RED BLOOD COUNT 4.89 10^6/uL (4.00-5.40); WHITE BLOOD COUNT 12.6 10^3/uL (4.0-10.0)
[2021-01-01 17:12] LABS: INR 0.95; PROTHROMBIN TIME 12.9 SECONDS (12.5-14.3)
[2021-01-01 17:39] LABS: ALBUMIN 3.6 GM/DL (3.2-5.2); ALT/SGPT 19 U/L (12-78); BILIRUBIN,DIRECT 0.2 MG/DL (0.0-0.2); BILIRUBIN,TOTAL 0.5 MG/DL (0.2-1.0); BLOOD UREA NITROGEN 19 MG/DL (7-18); CALCIUM LEVEL 9.4 MG/DL (8.8-10.2); CARBON DIOXIDE LEVEL 26 MEQ/L (21-32); CHLORIDE LEVEL 103 MEQ/L (98-107); CK-MB VALUE MASS 1.8 NG/ML (<3.6); CPK CREATINE PHOSPHOKINASE 71 U/L (26-192); CREATININE FOR GFR 1.15 MG/DL (0.55-1.30); FREE T4 1.43 NG/DL (0.76-1.46); GLOMERULAR FILTRATION RATE 48.5 (>39); GLUCOSE, FASTING 323 MG/DL (70-100); MB/CK RELATIVE INDEX 2.54 (< OR =4); POTASSIUM SERUM 4.1 MEQ/L (3.5-5.1); SODIUM LEVEL 137 MEQ/L (136-145); TOTAL PROTEIN 7.1 GM/DL (6.4-8.2); TROPONIN I < 0.02 NG/ML (< 0.10)
[2021-01-01] MEDS ORDERED: ISOVUE-370 76% 100ML VIAL As Ordered ONE (18:34)
--- NOTE | 2021-01-01 18:50 | REP ---
INDICATION: trauma COMPARISON: Chest radiograph 01/31/2019. TECHNIQUE: Three views left shoulder. FINDINGS: There is a mildly comminuted fracture of the distal end of the clavicle. There is mild displacement of the fracture fragments. There is no other evidence of acute fracture or dislocation. IMPRESSION: Mildly displaced, mildly comminuted fracture distal clavicle. <Electronically signed by Francisco Javier Phipps > 01/01/21 [id number]
--- NOTE | 2021-01-01 19:19 | REPVR ---
PROCEDURE INFORMATION: Exam: CT Head Without Contrast Exam date and time: 01/01/2021 6:45 PM Age: 80 years old Clinical indication: Injury or trauma; Fall; Blunt trauma (contusions or hematomas) TECHNIQUE: Imaging protocol: Computed tomography of the head without contrast. Radiation optimization: All CT scans at this facility use at least one of these dose optimization techniques: automated exposure control; mA and/or kV adjustment per patient size (includes targeted exams where dose is matched to clinical indication); or iterative reconstruction. COMPARISON: No relevant prior studies available. FINDINGS: Brain: There is moderate diffuse cerebellar atrophy. There is moderate age related parenchymal volume loss. White matter changes are demonstrated in the subcortical, centrum semiovale and periventricular white matter consistent with chronic age related small vessel ischemic changes. Cerebral ventricles: The degree of ventricular dilatation is normal for age and/or degree of atrophy present. Bones/joints: There is hyperostosis frontalis interna. Paranasal sinuses: Visualized sinuses are unremarkable. No fluid levels. Mastoid air cells: Visualized mastoid air cells are well aerated. Soft tissues: Unremarkable. IMPRESSION: 1. There is moderate diffuse cerebellar atrophy. 2. There is moderate age related parenchymal volume loss. White matter changes are demonstrated in the subcortical, centrum semiovale and periventricular white matter consistent with chronic age related small vessel ischemic changes. 3. The degree of ventricular dilatation is normal for age and/or degree of atrophy present. 4. No acute intracranial findings. Electronically signed by: Caio Lutz On 01/01/2021 19:19:20 PM
--- NOTE | 2021-01-01 19:24 | REPVR ---
PROCEDURE INFORMATION: Exam: CT Cervical Spine Without Contrast Exam date and time: 01/01/2021 6:45 PM Age: 80 years old Clinical indication: Injury or trauma; Fall; Blunt trauma TECHNIQUE: Imaging protocol: Computed tomography images of the cervical spine without contrast. Radiation optimization: All CT scans at this facility use at least one of these dose optimization techniques: automated exposure control; mA and/or kV adjustment per patient size (includes targeted exams where dose is matched to clinical indication); or iterative reconstruction. COMPARISON: No relevant prior studies available. FINDINGS: Bones/joints: No acute fracture. Normal alignment. Discs/Spinal canal/Neural foramina: There are degenerative changes demonstrated in the atlantoaxial joint at C1-C2 with osteophytes and joint space narrowing. The transverse ligament is thickened and calcified. Disc space narrowing at C5-C6 and C6-C7 with intervertebral osteophytes. Lungs: Lung apices are normal. Soft tissues: Unremarkable. IMPRESSION: 1. Mild foraminal stenosis on the right at C4, severe foraminal stenosis on the right and moderate foraminal stenosis on the left at C5, mild bilateral foraminal stenosis at C6 secondary to uncinate joint hypertrophic changes. 2. Disc osteophyte complexes at C5-C6 and C6-C7 with mild cord impingement at C5-C6. 3. No acute findings. Electronically signed by: Caio Lutz On 01/01/2021 19:23:54 PM
--- NOTE | 2021-01-01 19:30 | REPVR ---
PROCEDURE INFORMATION: Exam: CT Chest With Contrast; Diagnostic Exam date and time: 01/01/2021 6:45 PM Age: 80 years old Clinical indication: Injury or trauma; Fall; Blunt trauma (contusions or hematomas) TECHNIQUE: Imaging protocol: Diagnostic computed tomography of the chest with contrast. Radiation optimization: All CT scans at this facility use at least one of these dose optimization techniques: automated exposure control; mA and/or kV adjustment per patient size (includes targeted exams where dose is matched to clinical indication); or iterative reconstruction. Contrast material: ISOVUE 370; Contrast volume: 100 ml; Contrast route: INTRAVENOUS (IV); COMPARISON: No relevant prior studies available. FINDINGS: Lungs: Calcified granuloma left lower lobe. Pleural spaces: Unremarkable. No pneumothorax. No pleural effusion. Heart: Status post CABG. Mediastinal space: A small hiatal hernia is present. Pulmonary arteries: Filling defect in a lateral segmental branch of the right lower lobe pulmonary artery (series 201, image 60) consistent with a pulmonary arterial embolus although contrast density in the pulmonary arteries is limiting. Aorta: There is mild atherosclerosis in the thoracic aorta. Lymph nodes: Unremarkable. No enlarged lymph nodes. Bones/joints: Fracture distal clavicle on the left. Status post sternotomy. Osteoporosis. Soft tissues: Unremarkable. IMPRESSION: 1. Fracture distal clavicle on the left. 2. Filling defect in a lateral segmental branch of the right lower lobe pulmonary artery (series 201, image 60) consistent with a pulmonary arterial embolus although contrast density in the pulmonary arteries is limiting. 3. A small hiatal hernia is present. A critical call has been made to speak with the ordering physician/practitioner. This report will be amended once consultation has occurred. Electronically signed by: Caio Lutz On 01/01/2021 19:30:39 PM
--- NOTE | 2021-01-01 19:38 | REPVR ---
PROCEDURE INFORMATION: Exam: CT Abdomen And Pelvis With Contrast Exam date and time: 01/01/2021 6:45 PM Age: 80 years old Clinical indication: Injury or trauma; Fall; Blunt; Generalized TECHNIQUE: Imaging protocol: Computed tomography of the abdomen and pelvis with contrast. Radiation optimization: All CT scans at this facility use at least one of these dose optimization techniques: automated exposure control; mA and/or kV adjustment per patient size (includes targeted exams where dose is matched to clinical indication); or iterative reconstruction. Contrast material: ISOVUE 370; Contrast volume: 100 ml; Contrast route: INTRAVENOUS (IV); COMPARISON: CT ABD PELVIS WITH CONTRAST 02/13/2019 4:35 PM FINDINGS: Mediastinal space: A small hiatal hernia is present. Liver: There is a diffuse decrease in hepatic parenchymal density, consistent with steatosis. Gallbladder and bile ducts: Gravel layers dependently in the gallbladder. No gallbladder wall thickening or pericholecystic fluid to suggest cholecystitis. Pancreas: There is mild diffuse pancreatic atrophy. Spleen: Normal. No splenomegaly. Adrenal glands: Normal. No mass. Kidneys and ureters: 7 mm simple cyst right kidney. No follow-up suggested. Kidneys otherwise unremarkable. Stomach and bowel: Moderate diverticulosis is present in the distal colon. No diverticulitis. There is increased feces throughout the colon consistent with constipation. Appendix: No evidence of appendicitis. Intraperitoneal space: Unremarkable. No free air. No significant fluid collection. Vasculature: Unremarkable. No abdominal aortic aneurysm. Lymph nodes: Unremarkable. No enlarged lymph nodes. Urinary bladder: There is mild perivesicular inflammatory changes without significant wall thickening. Findings may indicate acute cystitis in the appropriate clinical setting. Reproductive: There has been a hysterectomy. Bones/joints: Moderate central spinal stenosis L2-L3, moderate to severe central spinal stenosis L3-L4 and L4-L5. Bulging annulus L5-S1. The spine demonstrates moderate degenerative changes. Soft tissues: There is a small umbilical hernia. There is no evidence of incarceration. Other findings: Osteoporosis. IMPRESSION: 1. A small hiatal hernia is present. 2. Gravel layers dependently in the gallbladder. No gallbladder wall thickening or pericholecystic fluid to suggest cholecystitis. 3. There is a diffuse decrease in hepatic parenchymal density, consistent with steatosis. 4. There is mild diffuse pancreatic atrophy. 5. There has been a hysterectomy. 6. Moderate diverticulosis is present in the distal colon. No diverticulitis. 7. There is mild perivesicular inflammatory changes without significant wall thickening. Findings may indicate acute cystitis in the appropriate clinical setting. 8. There is increased feces throughout the colon consistent with constipation. COMMENTS: Consistent with the [employer]'s Incidental Findings Committee white paper (J Am Rasta Radiol 2018): Any incidental renal lesion less than 1 cm or classified as too small to characterize, or any incidental cystic renal lesion characterized as simple-appearing, is likely benign. No follow-up imaging is recommended for these lesions per consensus recommendations based on imaging criteria. Electronically signed by: Caio Lutz On 01/01/2021 19:38:08 PM
[2021-01-01] MEDS ORDERED: MOM 30ML SUSPENSION UDC PO PRN (20:10)
[2021-01-01] MEDS ORDERED: DEXTROSE 50% 50 ML SYRINGE IV PRN (20:10)
[2021-01-01] MEDS ORDERED: MAALOX 30 ML SUSP *UDC PO PRN (20:10)
[2021-01-01] MEDS ORDERED: GLUCOSE 4GM CHEW TABLET PO PRN (20:10)
[2021-01-01] MEDS ORDERED: GLUCAGON INJ 1MG VIAL SC PRN (20:10)
--- NOTE | 2021-01-01 20:20 | HPEPDOC ---
[facility] Medical History & Physical Date of Admission January 01, 2021 Date of Service: January 01, 2021 Primary Care Physician: Glenroy Vidal M.D. Attending Physician: JENNIFER SAMSON MD History and Physical TIME OF SERVICE: 850pm CHIEF COMPLAINT: fall HISTORY OF PRESENT ILLNESS: The patient is hard of hearing & left her hearing aides at home. Some of the HPI was obtained from . This 80 yr old F came to the hospital for evaluation after having a fall backwards down [address]. She reports feeling like someone pushed her down the stairs. She denied having associated dyspnea, CP, HESS, or lower extremity edema. Her only c/o is of left neckpain. REVIEW OF SYSTEMS: 12-point review of systems negative except as listed in HPI PAST MEDICAL/ SURGICAL HISTORY: , TIA, IDDM, CAD/CABG, BEKAH, DLP, SHERRI 30cm H2O, GERD, hearing loss (wears hearing aides), newly diagnosed osteoporosis, newly diagnosed hepatic steatosis, diverticulosis, smal vessel ischemic disease, Endometrial adenocarcinoma s/p Hysterectomy , right knee replacement, resection of pilonidal cyst, right breast lumpectomy (path benign) SOCIAL HISTORY: She doesnt smoke, drink or use recreational drugs FAMILY HISTORY: Father & mother- CAD / Daugther - CVA / breast cancer - multiple family members ALLERGIES: Please see below. HOME MEDICATIONS: Please see below. PHYSICAL EXAMINATION: Vital Signs Date Time Temp Pulse Resp B/P (MAP) Pulse Ox O2 Delivery O2 Flow Rate FiO2 01/01/21 15:57 148/68 (94) 01/01/21 16:05 96.2 77 16 99 Room Air GENERAL APPEARANCE: well nourished and developed/ NAD HEENT: EOMI / MMM&P CARDIOVASCULAR: RRR/NMRG / trace BLE edema LUNGS: CTAB on RA ABDOMEN: obese /soft / she grimaces w palpation MUSCULOSKELETAL: PAULA x 4 INTEGUMENT: lips are not cyanotic / she has venous stasis changes at both lower extremities NEUROLOGICAL: she is hard of hearing / her speech is not dysarthric PSYCHIATRIC: A&O / able to understand and follow commands LABORATORY DATA: Immature Granulocyte % (Auto) 1.0, Neutrophils (%) (Auto) 81.7H, Lymphocytes (%) (Auto) 7.1L, Monocytes (%) (Auto) 8.1H, Eosinophils (%) (Auto) 1.6, Basophils (%) (Auto) 0.5, Neutrophils # (Auto) 10.3H, Lymphocytes # (Auto) 0.9L, Monocytes # (Auto) 1.0H, Eosinophils # (Auto) 0.2, Basophils # (Auto) 0.1, Nucleated Red Blood Cells % (auto) 0.0, Prothrombin Time 12.9, Prothromb Time International Ratio 0.95, Activated Partial Thromboplast Time 24.0L, Anion Gap 8, Glomerular Filtration Rate 48.5, Calcium Level 9.4, Total Bilirubin 0.5, Direct Bilirubin 0.2, Aspartate Amino Transf (AST/SGOT) 12, Alanine Aminotransferase (ALT/SGPT) 19, Alkaline Phosphatase 113, Total Creatine Kinase 71, Creatine Kinase MB 1.8, Creatine Kinase MB Relative Index 2.54, Troponin I < 0.02, Total Protein 7.1, Albumin 3.6, Albumin/Globulin Ratio 1.0L, Thyroid Stimulating Hormone (TSH) 2.090, Free Thyroxine 1.43 IMAGING: Xray shoulder Mildly displaced, mildly comminuted fracture distal clavicle. CT abd/pelvis 1. A small hiatal hernia is present. 2. Gravel layers dependently in the gallbladder. No gallbladder wall thickening or pericholecystic fluid to suggest cholecystitis. 3. There is a diffuse decrease in hepatic parenchymal density, consistent with steatosis. 4. There is mild diffuse pancreatic atrophy. 5. There has been a hysterectomy. 6. Moderate diverticulosis is present in the distal colon. No diverticulitis. 7. There is mild perivesicular inflammatory changes without significant wall thickening. Findings may indicate acute cystitis in the appropriate clinical setting. 8. There is increased feces throughout the colon consistent with constipation. CT cervical spine "1. Mild foraminal stenosis on the right at C4, severe foraminal stenosis on the right and moderate foraminal stenosis on the left at C5, mild bilateral foraminal stenosis at C6 secondary to uncinate joint hypertrophic changes. 2. Disc osteophyte complexes at C5-C6 and C6-C7 with mild cord impingement at C5-C6. 3. No acute findings. " CT chest "Osteoporosis. Soft tissues: Unremarkable.....1. Fracture distal cla vicle on the left. 2. Filling defect in a lateral segmental branch of the right lower lobe pulmonary artery (series 201, image 60) consistent with a pulmonary arterial embolus although contrast density in the pulmonary arteries is limiting. 3. A small hiatal hernia is present." CT head "1. There is moderate diffuse cerebellar atrophy. 2. There is moderate age related parenchymal volume loss. White matter changes are demonstrated in the subcortical, centrum semiovale and periventricular white matter consistent with chronic age related small vessel ischemic changes. 3. The degree of ventricular dilatation is normal for age and/or degree of atrophy present. 4. No acute intracranial findings." MICROBIOLOGY: Respiratory panel neg ASSESSMENT: Ms. Martines is a w TIA, IDDM, CAD/CABG, BEKAH, DLP, SHERRI, hearing loss, osteoporosis, hepatic steatosis, diverticulosis & small vessel ischemic disease who presented for evaluation after having fall and will be admitted for evaluation of a fall, PE, and distal clavicle fx. PLAN: 1 Mechanical Fall Possible causes include Orthostatic hypotension, arrhythmia, or weakness, Plan: frequent neuro checks/fall precautions/physical therapy consult to determine if he needs inpatient rehabilitation/ check orthostats / f/u A1C and liberalize A1C goal to ~8.5% to reduce the risk of hypoglycaemia which can lead to dizziness and increase the risk of falls especially in the elderly 2. Acute vs Submassive Pulmonary Embolism appears to be unprovoked MANISH Score =1 = low risk for complications and morality Plan: admit to medical floor / pending Echo will start Lovenox / f/u Echo (if there is right ventricular strain / dysfunction (ie RV/LV ratio >0.9 on Echo then she meets the criteria to diagnose Submassive PE ), f/u BNP, 3 Left distal clavicle fx Plan: acetaminophen / Percocet 1 / sling 4 abdominal pain 2/2 constipation Plan: mirilax & senna 5 uncontrolled DM Plan: diabetic diet / f/u accuchecks Q6H / hypoglycemia protocol / sliding scale insulin / hold oral anti-glycemic / f/u A1C / resume long acting insulin 6 newly diagnosed osteoporosis Plan: f/u w PCP 7 newly diagnosed hepatic steatosis Plan; f/u w PCP to discuss diet and exercise 8 Uncontrolled HTN Plan: Lasix, Metoprolol, add amlodipine x 1 tonight, the day time team may decided whether or not to c/w this med 9 SHERRI Plan: CPAP 10 hx of TIA Plan: Aspirin 11 CAD/CABG / DLP Plan; Aspirin, Rosuvastatin 12 BEKAH Stable 13 Obesity Complicates care DVT px n/ a on heparin drip Dispo: home after at least 2 midnights stay Home Medications Scheduled Aspirin (Aspirin) 81 Mg Tab.chew, 81 MG PO DAILY Furosemide (Furosemide) 20 Mg Tablet, 20 MG PO DAILY Insulin Glargine (Lantus) 1 Units/0.01 Ml Susp, 45 UNITS SC QHS Metformin HCl (Metformin HCl) 1,000 Mg Tab, 1,000 MG PO BID Metoprolol Tartrate (Lopressor) 50 Mg Tab, 50 MG PO BID Rosuvastatin Calcium (Crestor) 20 Mg Tab, 20 MG PO QHS Scheduled PRN Albuterol Sulfate (Ventolin Hfa) 18 Gm Hfa.aer.ad, 2 PUFF INH Q4-6HP PRN for wheezing Allergies Coded Allergies: Coconut (Verified Allergy, Unknown, unknown, 09/06/20) ciprofloxacin (Verified Allergy, Unknown, unknown, 09/06/20) ether (Verified Allergy, Unknown, unknown, 09/06/20) A-FIB/CHADSVASC A-FIB History Current/History of A-Fib/PAF?: No Current PO Anticoag Therapy: No JENNIFER SAMSON MD January 01, 2021 20:20
[2021-01-01] MEDS ORDERED: PERCOCET 5MG/325MG TAB PO ONE (20:30)
[2021-01-01] MEDS ORDERED: HumaLOG INSULIN (NovoLOG) PER UNIT SC SCH ×3 (20:35→21:00)
[2021-01-01] MEDS ORDERED: NS 500 ML IV ONE ×3 (20:35)
[2021-01-01 20:45] LABS: NT-PRO BNP 1925 PG/ML (<450)
[2021-01-01] MEDS ORDERED: ASPI81CH33 PO (20:45)
[2021-01-01 20:50] LABS: HEMOGLOBIN A1c 10.2 %
[2021-01-01] MEDS ORDERED: ALBUTEROL 90 MCG/ACT 8GM HFA INHALER INH PRN (21:30)
[2021-01-01 21:45] VITALS: BP 158/70
--- NOTE | 2021-01-01 21:49 | HPEPDOC ---
[facility] Medical History & Physical Date of Admission January 01, 2021 Date of Service: January 01, 2021 Primary Care Physician: DICK ROMAN DO Attending Physician: JENNIFER SAMSON MD Vital Signs Vital Signs Date Time Temp Pulse Resp B/P (MAP) Pulse Ox O2 Delivery O2 Flow Rate FiO2 01/01/21 21:20 17 01/01/21 20:22 151/77 (101) 01/01/21 20:00 75 99 Room Air 01/01/21 16:05 96.2 Laboratory Data Labs 24H Laboratory Tests 2 01/01/21 16:45: Immature Granulocyte % (Auto) 1.0, Neutrophils (%) (Auto) 81.7H, Lymphocytes (%) (Auto) 7.1L, Monocytes (%) (Auto) 8.1H, Eosinophils (%) (Auto) 1.6, Basophils (%) (Auto) 0.5, Neutrophils # (Auto) 10.3H, Lymphocytes # (Auto) 0.9L, Monocytes # (Auto) 1.0H, Eosinophils # (Auto) 0.2, Basophils # (Auto) 0.1, Nucleated Red Blood Cells % (auto) 0.0, Prothrombin Time 12.9, Prothromb Time International Ratio 0.95, Activated Partial Thromboplast Time 24.0L, Anion Gap 8, Glomerular Filtration Rate 48.5, Estimated Mean Plasma Glucose 246H, Hemoglobin A1c 10.2, Calcium Level 9.4, Total Bilirubin 0.5, Direct Bilirubin 0.2, Aspartate Amino T ransf (AST/SGOT) 12, Alanine Aminotransferase (ALT/SGPT) 19, Alkaline Phosphatase 113, Total Creatine Kinase 71, Creatine Kinase MB 1.8, Creatine Kinase MB Relative Index 2.54, Troponin I < 0.02, UT-Wtd-P-Type Natriuretic Peptide 1925H, Total Protein 7.1, Albumin 3.6, Albumin/Globulin Ratio 1.0L, Th yroid Stimulating Hormone (TSH) 2.090, Free Thyroxine 1.43 CBC/BMP Laboratory Tests 01/01/21 16:45 Microbiology Microbiology 01/01/21 Respiratory Virus Panel (PCR) ([facility]) - Final, Complete Home Medications Scheduled Aspirin (Aspirin) 81 Mg Tab.chew, 81 MG PO DAILY Furosemide (Furosemide) 20 Mg Tablet, 20 MG PO DAILY Insulin Glargine (Lantus) 1 Units/0.01 Ml Susp, 45 UNITS SC QHS Metformin HCl (Metformin HCl) 1,000 Mg Tab, 1,000 MG PO BID Metoprolol Tartrate (Lopressor) 50 Mg Tab, 50 MG PO BID Rosuvastatin Calcium (Crestor) 20 Mg Tab, 20 MG PO QHS Scheduled PRN Albuterol Sulfate (Ventolin Hfa) 18 Gm Hfa.aer.ad, 2 PUFF INH Q4-6HP PRN for wheezing Allergies Coded Allergies: Coconut (Verified Allergy, Unknown, unknown, 09/06/20) ciprofloxacin (Verified Allergy, Unknown, unknown, 09/06/20) ether (Verified Allergy, Unknown, unknown, 09/06/20) JENNIFER SAMSON MD January 01, 2021 21:49
[2021-01-01] MEDS ORDERED: KETOROLAC 30 MG/ML 1ML VIAL IV ONE (23:30)
[2021-01-02] MEDS: SENNA 8.6 MG TAB (SENOKOT) PO SCH ×2 (00:35→21:00)
[2021-01-02] MEDS: ROSUVASTATIN 10 MG TAB (CRESTOR) PO SCH ×2 (00:35→21:13)
[2021-01-02] MEDS: METOPROLOL TART 50 MG TAB PO SCH ×3 (00:35→21:13)
[2021-01-02] MEDS: ENOXAPARIN 100MG/1ML SYRINGE (J1650 PER 10MG) SC SCH ×3 (00:35→21:12)
[2021-01-02] MEDS: HumaLOG INSULIN (NovoLOG) PER UNIT SC SCH ×4 (00:46→18:26)
[2021-01-02 04:00] VITALS: BP 104/60
[2021-01-02 05:43] LABS: HEMATOCRIT 36.5 % (36.0-47.0); HEMOGLOBIN 11.3 g/dl (12.0-15.5); MEAN CORPUSCULAR VOLUME 87.1 fl (80.0-96.0); PLATELET COUNT, AUTOMATED 230 10^3/uL (150-450); RED BLOOD COUNT 4.19 10^6/uL (4.00-5.40)
[2021-01-02 05:56] LABS: INR 1.04; PROTHROMBIN TIME 13.8 SECONDS (12.5-14.3)
[2021-01-02 06:02] LABS: CALCIUM LEVEL 8.6 MG/DL (8.8-10.2); CREATININE FOR GFR 1.2 MG/DL (0.55-1.30); GLOMERULAR FILTRATION RATE 46.1 (>39); POTASSIUM SERUM 4.2 MEQ/L (3.5-5.1)
[2021-01-02] MEDS ORDERED: HumaLOG INSULIN (NovoLOG) PER UNIT SC SCH ×2 (07:30)
[2021-01-02 08:00] VITALS: BP 112/55
[2021-01-02] MEDS: MIRALAX *UNIT DOSE* 17GM PACKET PO SCH ×2 (09:00→21:00)
[2021-01-02] MEDS: FUROSEMIDE 20 MG TAB PO SCH (09:16)
[2021-01-02] MEDS: ACETAMINOPHEN TAB 650MG DOSE (2X325MG) PO PRN (09:16)
[2021-01-02] MEDS: ASPIRIN 81 MG CHEW TABLET PO SCH (09:16)
--- NOTE | 2021-01-02 10:12 | IPNPDOC ---
Text Note Date of Service The patient was seen on 01/02/21. NOTE Subjective: Patient seen and examined at bedside. No acute overnight events reported. Patient voices no new medical complaints this morning. Objective: General: NAD, lying comfortably in bed, hirsute HEENT: NC/AT, poor dentition, very hard of hearing, deaf in left ear Lungs: CTA B/L Heart: +S1S2, RRR Abd: soft, NT, +BS Ext: no edema, chronic venous stasis changes A/P: 80 female with PMHx of TIA, IDDM, CAD/CABG, BEKAH, DLP, SHERRI, hearing loss, osteoporosis, hepatic steatosis, diverticulosis & small vessel ischemic disease who presented for evaluation after having fall and admitted for evaluation of a fall, PE, and distal clavicle fx. # Fall - echo pending - telemetry monitoring - neuro checks, orthostatic checks - fall precautions, PT/OT # Pulmonary Embolism - appears to be unprovoked - echo pending - currently on therapeutic lovenox # Left distal clavicle fx - pain control, sling in place - discussed with ortho - recs for outpatient follow up #DM - insulin therapy, carb consistent diet # newly diagnosed osteoporosis # newly diagnosed hepatic steatosis Plan; f/u w PCP to discuss diet and exercise # Uncontrolled HTN - continue to monitor # SHERRI - continue CPAP # hx of TIA Plan: Aspirin # CAD/CABG / DLP Plan; Aspirin, Rosuvastatin # BEKAH Stable # Obesity Complicates care #DVT prophylaxis - as above, on therapeutic lovenox VS,Fishbone, I+O VS, Fishbone, I+O Laboratory Tests 01/01/21 16:45 01/02/21 05:23 Vital Signs Date Time Temp Pulse Resp B/P (MAP) Pulse Ox O2 Delivery O2 Flow Rate FiO2 01/02/21 09:16 68 112/55 01/02/21 08:00 97.4 16 96 Room Air I&O- Last 24 Hours up to 6 AM 01/02/21 06:00 Intake Total 50 ml Balance 50 ml MERCED PATTERSON MD January 02, 2021 10:12
[2021-01-02 12:00] VITALS: BP 114/59
[2021-01-02 16:00] VITALS: BP 132/63
[2021-01-02 20:00] VITALS: BP 123/60
[2021-01-02] MEDS ORDERED: LEVEMIR (INSULIN DETEMIR) 1 UNITS/0.01ML SC SCH (21:00)
[2021-01-03 04:00] VITALS: BP 129/58
[2021-01-03 05:48] LABS: HEMATOCRIT 34.6 % (36.0-47.0); HEMOGLOBIN 10.7 g/dl (12.0-15.5); MEAN CORPUSCULAR HEMOGLOBIN 26.9 pg (27.0-33.0); MEAN CORPUSCULAR HGB CONC 30.9 g/dl (32.0-36.5); MEAN CORPUSCULAR VOLUME 86.9 fl (80.0-96.0); PLATELET COUNT, AUTOMATED 214 10^3/uL (150-450); RED BLOOD COUNT 3.98 10^6/uL (4.00-5.40); WHITE BLOOD COUNT 8.7 10^3/uL (4.0-10.0)
[2021-01-03 05:57] LABS: INR 1.08; PROTHROMBIN TIME 14.2 SECONDS (12.5-14.3)
[2021-01-03] MEDS: HumaLOG INSULIN (NovoLOG) PER UNIT SC SCH ×4 (06:00→18:10)
[2021-01-03 06:20] LABS: CALCIUM LEVEL 8.4 MG/DL (8.8-10.2); CREATININE FOR GFR 1.13 MG/DL (0.55-1.30); GLOMERULAR FILTRATION RATE 49.4 (>39); POTASSIUM SERUM 4.2 MEQ/L (3.5-5.1)
--- NOTE | 2021-01-03 07:12 | IPNPDOC ---
Text Note Date of Service The patient was seen on 01/03/21. NOTE Subjective: Patient was seen and examined this morning at bedside. Patient doesn't have her hearing aid and is very hard of hearing she mostly reads lips. She was able to tell me that she is doing well she was able to summarize why she is in the hospital. She tells me she doesn't feel short of breath. Tells me she doesn't feel dizzy. She was able to tell me more about her fall today that she tripped and fell down stairs she didn't feel dizzy or lightheaded or pass out when she fell. She denies any fevers or chills. She does endorse some pain around her clavicle moving her left shoulder which is to be expected. There is no acute overnight events reported to me. Objective: Constitutional: Awake and alert, in no apparent distress. Extremely hard of hearing reads lips mostly. ENT: Sclera are clear. Mucosa is moist. Respiratory: Lungs CTA bilaterally. No respiratory distress. Cardiovascular: RRR S1 and S2 are normal Gastrointestinal: Abdomen is soft, non distended, non tender, BS present. Musculoskeletal: No edema. Neurologic: No focal neurological deficit. Mental Status: A&O x3, normal affect Assessment/plan: 80 female with PMHx of TIA, IDDM, CAD/CABG, BEKAH, DLP, SHERRI, hearing loss, osteoporosis, hepatic steatosis, diverticulosis & small vessel ischemic disease who presented for evaluation after having fall and admitted for evaluation of a fall, PE, and distal clavicle fx. her pulmonary embolism appears to be unprovoked and she will need to follow-up with hematology or her PCP in the outpatient setting to complete a hypercoagulability workup. She was initially treated with therapeutic Lovenox which was transitioned to eliquis 10 mg twice a day for 7 days (01/03-01/10) followed by 5 mg twice a day at time of discharge. With regards to her left distal clavicle fracture she was evaluated by orthopedic surgery who recommended follow-up in their clinic with conservative management and sling. With regards to her fall she had no events on telemetry and appears her fall was mechanical. Echo results were reviewed because of the PE not suggesting right heart strain. Patient was cleared for discharge to home but did not clear physical therapy and was switched to ALC status 5/18/21, she may need rehabilitation. # Pulmonary Embolism: No shortness of breath of need for supplemental oxygen. Appears to be unprovoked. Echo results reviewed no right heart strain. Initially on therapeutic Lovenox transitioned to eliquis. We'll need to follow-up with hematology/PCP for hypercoagulability workup. # Left distal clavicle fx: Sling in place. Pain control. Evaluated by orthopedics recommends conservative management and follow-up in clinic. # Fall: Appears to be purely mechanical. Echo results reviewed. No events on telemetry. Orthostatics negative. # DM: ISS. Frequent Accu-Cheks. Hypoglycemic precautions. # newly diagnosed osteoporosis: Follow-up with PCP # newly diagnosed hepatic steatosis : f/u w PCP to discuss diet and exercise # Uncontrolled HTN on presentation: This was likely from pain. Currently she is normotensive. Continue to monitor and follow-up with PCP. Started on amlodipine. # SHERRI : continue CPAP # hx of TIA: Aspirin and Crestor # CAD/CABG / DLP: Aspirin, Rosuvastatin # BEKAH: Stable # Obesity : Complicates care #DVT prophylaxis; anna Arizmendi Hospitalist Jesus GRACIA, I+O VSJesus I+O Laboratory Tests 01/03/21 05:19 Vital Signs Date Time Temp Pulse Resp B/P (MAP) Pulse Ox O2 Delivery O2 Flow Rate FiO2 01/03/21 04:00 97.4 73 17 129/58 (81) 93 Room Air 01/03/21 00:00 21 I&O- Last 24 Hours up to 6 AM 01/03/21 06:00 Intake Total 600 ml Balance 600 ml NIA ARIZMENDI MD January 03, 2021 07:12
[2021-01-03 07:17] VITALS: BP 127/59
[2021-01-03] MEDS: FUROSEMIDE 20 MG TAB PO SCH (08:18)
[2021-01-03] MEDS: MIRALAX *UNIT DOSE* 17GM PACKET PO SCH ×2 (08:18→20:25)
[2021-01-03] MEDS: ASPIRIN 81 MG CHEW TABLET PO SCH (08:18)
[2021-01-03] MEDS: METOPROLOL TART 50 MG TAB PO SCH ×2 (08:19→20:25)
[2021-01-03 11:39] VITALS: BP 127/58
--- NOTE | 2021-01-03 11:41 | ECHO ---
DATE OF PROCEDURE: 01/01/2021 Age: 80 Gender: Female Height: 153 cm Weight: 101 kg REFERRING PHYSICIAN: Dr. Elke Cabrera. INDICATION: Pulmonary embolism, coronary artery disease, and obstructive sleep apnea. MEASUREMENTS: IVS 1.1 cm LV 5.0 cm LVPW 1.1 cm LA 5.1 cm Aorta 2.9 cm RV 2.8 cm IVC 1.9 cm Mitral E wave velocity 78 A wave 105 E prime septal 6.1 E prime lateral 8.4 FINDINGS: This study is of fair technical quality corresponding to patient's body habitus. Underlying sinus rhythm. Left ventricle is normal size and has normal contractility, I estimate EF around 60%. I do not appreciate any segmental wall motion abnormalities. Right ventricle appears to have normal size and systolic function. Right atrium is severely enlarged. Right atrium appears normal. Aortic valve is sclerotic, but it is tricuspid and has preserved mobility. Mild degenerative abnormalities of mitral valve are also noted, but mobility of leaflets is preserved. Tricuspid valve appears normal. Pulmonic valve was not well visualized. Inferior vena cava is of normal size and almost completely collapses with inspiration indicative of normal central venous pressure. Aortic root appears normal. Aortic arch and abdominal aorta were not visualized. Doppler interrogation of aortic valve reveals no stenosis and mild insufficiency. There is mild mitral insufficiency. There is trace tricuspid insufficiency. Calculated pulmonary artery pressure was in high 20s corresponding to normal values. Mitral inflow pattern and tissue Doppler imaging of mitral annulus revealed grade 1 diastolic dysfunction. CONCLUSIONS: 1. Study is of fair technical quality, underlying sinus rhythm. 2. Normal LV size with preserved LV systolic function and grade 1 diastolic dysfunction. 3. Normal RV size and systolic function. 4. No hemodynamically significant valvular disease. 5. Likely normal central venous pressure and normal pulmonary artery pressure. COMMENTS: Study argues against hemodynamic significance of pulmonary embolism. MTDD
[2021-01-03] MEDS: ENOXAPARIN 100MG/1ML SYRINGE (J1650 PER 10MG) SC SCH (12:06)
[2021-01-03 14:59] VITALS: BP 143/60
[2021-01-03 20:00] VITALS: BP 147/66
[2021-01-03] MEDS: APIXABAN 5 MG TAB (ELIQUIS) PO SCH (20:24)
[2021-01-03] MEDS: ROSUVASTATIN 10 MG TAB (CRESTOR) PO SCH (20:24)
[2021-01-03] MEDS: SENNA 8.6 MG TAB (SENOKOT) PO SCH (20:25)
[2021-01-04] MEDS: HumaLOG INSULIN (NovoLOG) PER UNIT SC SCH ×6 (00:32→21:05)
[2021-01-04] MEDS: ACETAMINOPHEN TAB 650MG DOSE (2X325MG) PO PRN ×2 (01:24→23:48)
[2021-01-04 04:00] VITALS: BP 132/60
[2021-01-04 05:42] LABS: HEMATOCRIT 33.5 % (36.0-47.0); HEMOGLOBIN 10.3 g/dl (12.0-15.5); MEAN CORPUSCULAR HEMOGLOBIN 26.9 pg (27.0-33.0); MEAN CORPUSCULAR HGB CONC 30.7 g/dl (32.0-36.5); MEAN CORPUSCULAR VOLUME 87.5 fl (80.0-96.0); PLATELET COUNT, AUTOMATED 207 10^3/uL (150-450); RED BLOOD COUNT 3.83 10^6/uL (4.00-5.40); WHITE BLOOD COUNT 7.7 10^3/uL (4.0-10.0)
[2021-01-04 06:03] LABS: INR 1.27; PROTHROMBIN TIME 16.2 SECONDS (12.5-14.3)
[2021-01-04 06:05] LABS: CALCIUM LEVEL 8.4 MG/DL (8.8-10.2); CREATININE FOR GFR 1.08 MG/DL (0.55-1.30); GLOMERULAR FILTRATION RATE 52.1 (>39); POTASSIUM SERUM 4.1 MEQ/L (3.5-5.1)
[2021-01-04 08:00] VITALS: BP 132/60
[2021-01-04] MEDS: ASPIRIN 81 MG CHEW TABLET PO SCH (09:37)
[2021-01-04] MEDS: FUROSEMIDE 20 MG TAB PO SCH (09:37)
[2021-01-04] MEDS: MIRALAX *UNIT DOSE* 17GM PACKET PO SCH ×2 (09:38→20:49)
[2021-01-04] MEDS: METOPROLOL TART 50 MG TAB PO SCH ×2 (09:39→20:57)
[2021-01-04] MEDS: APIXABAN 5 MG TAB (ELIQUIS) PO SCH ×2 (09:39→20:55)
[2021-01-04 16:00] VITALS: BP 135/70
[2021-01-04 20:20] VITALS: BP 166/70
[2021-01-04] MEDS: SENNA 8.6 MG TAB (SENOKOT) PO SCH (20:50)
[2021-01-04] MEDS: ROSUVASTATIN 10 MG TAB (CRESTOR) PO SCH (20:56)
[2021-01-05 00:15] VITALS: BP 127/58
[2021-01-05 04:10] VITALS: BP 135/60
[2021-01-05 07:29] VITALS: BP 134/68
[2021-01-05] MEDS: HumaLOG INSULIN (NovoLOG) PER UNIT SC SCH ×4 (08:26→20:38)
[2021-01-05] MEDS: ASPIRIN 81 MG CHEW TABLET PO SCH (08:27)
[2021-01-05] MEDS: APIXABAN 5 MG TAB (ELIQUIS) PO SCH ×2 (08:27→20:37)
[2021-01-05] MEDS: MIRALAX *UNIT DOSE* 17GM PACKET PO SCH ×2 (08:27→20:41)
[2021-01-05] MEDS: FUROSEMIDE 20 MG TAB PO SCH (08:28)
[2021-01-05] MEDS: METOPROLOL TART 50 MG TAB PO SCH ×2 (08:28→20:37)
[2021-01-05] MEDS: ACETAMINOPHEN TAB 650MG DOSE (2X325MG) PO PRN (17:06)
[2021-01-05 20:00] VITALS: BP 150/70
[2021-01-05] MEDS: SENNA 8.6 MG TAB (SENOKOT) PO SCH (20:36)
[2021-01-05] MEDS: ROSUVASTATIN 10 MG TAB (CRESTOR) PO SCH (20:37)
[2021-01-06 06:30] VITALS: BP 142/65
[2021-01-06] MEDS: ASPIRIN 81 MG CHEW TABLET PO SCH (08:04)
[2021-01-06] MEDS: MIRALAX *UNIT DOSE* 17GM PACKET PO SCH ×3 (08:05→21:00)
[2021-01-06] MEDS: METOPROLOL TART 50 MG TAB PO SCH ×2 (08:05→20:59)
[2021-01-06] MEDS: APIXABAN 5 MG TAB (ELIQUIS) PO SCH ×2 (08:05→20:59)
[2021-01-06] MEDS: ACETAMINOPHEN TAB 650MG DOSE (2X325MG) PO PRN ×2 (08:05→23:21)
[2021-01-06] MEDS: FUROSEMIDE 20 MG TAB PO SCH (08:05)
[2021-01-06] MEDS: HumaLOG INSULIN (NovoLOG) PER UNIT SC SCH ×4 (08:06→20:58)
--- NOTE | 2021-01-06 12:17 | DS.PDOC ---
Discharge Summary General Date of Admission January 01, 2021 at 20:09 Date of Discharge 01/06/21 Discharge Summary PROCEDURES PERFORMED DURING STAY: [None]. ADMITTING/DISCHARGE DIAGNOSES: 1. Left distal clavicle fx 2. Pulmonary Embolism COMPLICATIONS/CHIEF COMPLAINT: Pulmonary Emboli. HISTORY OF PRESENT ILLNESS/HOSPITAL COURSE: 80 female with PMHx of TIA, IDDM, CAD/CABG, BEKAH, DLP, SHERRI, hearing loss, osteoporosis, hepatic steatosis, diverticulosis & small vessel ischemic disease who presented for evaluation after having fall and admitted for evaluation of a fall, PE, and distal clavicle fx. her pulmonary embolism appears to be unprovoked and she will need to follow-up with hematology or her PCP in the outpatient setting to complete a hypercoagulability workup. She was initially treated with therapeutic Lovenox which was transitioned to eliquis 10 mg twice a day for 7 days (01/03-01/10) followed by 5 mg twice a day at time of discharge. With regards to her left distal clavicle fracture she was evaluated by orthopedic surgery who recommended follow-up in their clinic with conservative management and sling. With regards to her fall she had no events on telemetry and appears her fall was mechanical. Echo results were reviewed because of the PE not suggesting right heart strain. Patient was cleared for discharge to home but did not clear physical therapy and was switched to ALC status 01/03/21 for possible rehab. She passed PT eval on 01/06 and was discharged home. # Pulmonary Embolism: No shortness of breath of need for supplemental oxygen. Appears to be unprovoked. Echo results reviewed no right heart strain. Initially on therapeutic Lovenox transitioned to eliquis. We'll need to follow-up with hematology/PCP for hypercoagulability workup. # Left distal clavicle fx: Sling in place. Pain control. Evaluated by orthopedics recommends conservative management and follow-up in clinic. # Fall: Appears to be purely mechanical. Echo results reviewed. No events on telemetry. Orthostatics negative. DISCHARGE MEDICATIONS: Please see below. ALLERGIES: Please see below. PHYSICAL EXAMINATION ON DISCHARGE: VITAL SIGNS: Please see below. Constitutional: Awake and alert, in no apparent distress. hard of hearing. ENT: Sclera are clear. Mucosa is moist. Respiratory: Lungs CTA bilaterally. No respiratory distress. Cardiovascular: RRR S1 and S2 are normal Gastrointestinal: Abdomen is soft, non distended, non tender, BS present. Musculoskeletal: No edema. Neurologic: No focal neurological deficit. Mental Status: A&O x3, normal affect PSYCHIATRIC EXAMINATION: LABORATORY DATA: Please see below. IMAGING: See chart PROGNOSIS: Fair ACTIVITY: [As tolerated]. DIET: Consistent carbohydrate diet DISPOSITION: Home DISCHARGE INSTRUCTIONS: Please follow up with your primary care physician within 1 week from discharge. If you do not have one, please follow up with us to schedule an appointment. Please keep all of your follow up appointments. Please call central to book your appointments with hospital specialists. Please take all your medications as prescribed. Please call/come to Clinic or go to the Emergency Department if - Temp >101, intractable Nausea/Vomiting, Diarrhea, Mouth sores, Headaches, Altered mental status, Seizures, sudden onset of swelling, bleeding, shortness of breath or chest pain. Follow-up with orthopedic surgery Follow-up with hematology Follow-up with primary care physician within 5 days Take your eliquis as prescribed DISCHARGE CONDITION: [Stable]. TIME SPENT ON DISCHARGE: 40 minutes. Vital Signs/I&Os Vital Signs Date Time Temp Pulse Resp B/P (MAP) Pulse Ox O2 Delivery O2 Flow Rate FiO2 01/06/21 08:05 76 142/58 01/06/21 06:30 97.5 18 96 Room Air 01/03/21 00:00 21 I&O- Last 24 Hours up to 6 AM 01/06/21 06:00 Intake Total 1442 ml Balance 1442 ml Laboratory Data Labs 24H Laboratory Tests 2 01/05/21 16:46: Bedside Glucose (Misc Panel) 290H 01/05/21 20:28: Bedside Glucose (Misc Panel) 324H 01/06/21 05:49: Bedside Glucose (Misc Panel) 300H 01/06/21 11:17: Bedside Glucose (Misc Panel) 372H FSBS Laboratory Tests Test 01/05/21 16:46 01/05/21 20:28 01/06/21 05:49 01/06/21 11:17 Range/Units Bedside Glucose (Misc Panel) 290 324 300 372 83-110 MG/DL Microbiology Microbiology 01/01/21 Respiratory Virus Panel (PCR) ([facility]) - Final, Complete Discharge Medications Scheduled Amlodipine Besylate (Amlodipine Besylate) 2.5 Mg Tablet, 2.5 MG PO QHS Apixaban (Eliquis) 5 Mg Tablet, 10 MG PO BID Take 10mg twice a day until January 10. Starting on January 11 take 5mg twice a day. Aspirin (Aspirin) 81 Mg Tab.chew, 81 MG PO DAILY, (Reported) Furosemide (Furosemide) 20 Mg Tablet, 20 MG PO DAILY, (Reported) Insulin Glargine (Lantus) 1 Units/0.01 Ml Susp, 45 UNITS SC QHS, (Reported) Metformin HCl (Metformin HCl) 1,000 Mg Tab, 1,000 MG PO BID, (Reported) Metoprolol Tartrate (Lopressor) 50 Mg Tab, 50 MG PO BID, (Reported) Rosuvastatin Calcium (Crestor) 20 Mg Tab, 20 MG PO QHS, (Reported) Scheduled PRN Albuterol Sulfate (Ventolin Hfa) 18 Gm Hfa.aer.ad, 2 PUFF INH Q4-6HP PRN for wheezing, (Reported) Allergies Coded Allergies: Coconut (Verified Allergy, Unknown, unknown, 09/06/20) ciprofloxacin (Verified Allergy, Unknown, unknown, 09/06/20) ether (Verified Allergy, Unknown, unknown, 09/06/20) NIA ARIZMENDI MD January 06, 2021 12:17
[2021-01-06] MEDS ORDERED: ELIQ5TAB PO ×2 (12:20→17:53)
[2021-01-06] MEDS ORDERED: AMLO25TA PO ×2 (12:20→17:53)
[2021-01-06] MEDS: ROSUVASTATIN 10 MG TAB (CRESTOR) PO SCH (20:58)
[2021-01-06] MEDS: SENNA 8.6 MG TAB (SENOKOT) PO SCH (21:00)
[2021-01-06 22:00] VITALS: BP 143/56
[2021-01-07 06:11] VITALS: BP 129/55
[2021-01-07] MEDS: HumaLOG INSULIN (NovoLOG) PER UNIT SC SCH ×4 (07:33→22:35)
[2021-01-07] MEDS: MIRALAX *UNIT DOSE* 17GM PACKET PO SCH ×2 (09:00→22:32)
[2021-01-07] MEDS: FUROSEMIDE 20 MG TAB PO SCH (09:34)
[2021-01-07] MEDS: APIXABAN 5 MG TAB (ELIQUIS) PO SCH ×2 (09:34→22:32)
[2021-01-07] MEDS: ASPIRIN 81 MG CHEW TABLET PO SCH (09:34)
[2021-01-07] MEDS: ACETAMINOPHEN TAB 650MG DOSE (2X325MG) PO PRN ×2 (09:34→22:39)
[2021-01-07] MEDS: METOPROLOL TART 50 MG TAB PO SCH ×2 (09:35→22:34)
[2021-01-07] MEDS: SENNA 8.6 MG TAB (SENOKOT) PO SCH (22:33)
[2021-01-07] MEDS: ROSUVASTATIN 10 MG TAB (CRESTOR) PO SCH (22:33)
[2021-01-08 06:00] VITALS: BP 125/77
[2021-01-08] MEDS: APIXABAN 5 MG TAB (ELIQUIS) PO SCH ×2 (08:00→22:01)
[2021-01-08] MEDS: MIRALAX *UNIT DOSE* 17GM PACKET PO SCH ×2 (08:00→22:03)
[2021-01-08] MEDS: ASPIRIN 81 MG CHEW TABLET PO SCH (08:00)
[2021-01-08] MEDS: FUROSEMIDE 20 MG TAB PO SCH (08:00)
[2021-01-08] MEDS: METOPROLOL TART 50 MG TAB PO SCH ×2 (08:01→22:03)
[2021-01-08] MEDS: HumaLOG INSULIN (NovoLOG) PER UNIT SC SCH ×4 (08:01→22:04)
[2021-01-08] MEDS: ROSUVASTATIN 10 MG TAB (CRESTOR) PO SCH (22:01)
[2021-01-08] MEDS: SENNA 8.6 MG TAB (SENOKOT) PO SCH (22:04)
[2021-01-09 06:00] VITALS: BP 111/73
[2021-01-09] MEDS: MIRALAX *UNIT DOSE* 17GM PACKET PO SCH (08:54)
[2021-01-09] MEDS: HumaLOG INSULIN (NovoLOG) PER UNIT SC SCH ×2 (08:55→12:50)
[2021-01-09 08:56] VITALS: BP 141/64
[2021-01-09] MEDS: ASPIRIN 81 MG CHEW TABLET PO SCH (08:56)
[2021-01-09] MEDS: APIXABAN 5 MG TAB (ELIQUIS) PO SCH (08:56)
[2021-01-09] MEDS: FUROSEMIDE 20 MG TAB PO SCH (08:56)
[2021-01-09] MEDS: METOPROLOL TART 50 MG TAB PO SCH (08:56)
== END 2021-01-09 15:04 | disposition home health service (06) | DRG 562 ==
LOC: EDBD 15:45 → M ED 15:45 → M ED INP 20:09 → ENRESERV 20:57 → M PCU 21:40 → M MSPAV 01-05 09:36
PROVIDERS: ADMIT Internal Medicine; ATTEND Internal Medicine Pulmonary Disease
DX: S42.035A Nondisplaced fracture of lateral end of left clavicle, initial encounter for closed fracture (principal); I26.99 Other pulmonary embolism without acute cor pulmonale; K59.00 Constipation, unspecified; W10.8XXA Fall (on) (from) other stairs and steps, initial encounter; Y92.009 Unspecified place in unspecified non-institutional (private) residence as the place of occurrence of the external cause; Z86.73 Personal history of transient ischemic attack (TIA), and cerebral infarction without residual deficits; E11.65 Type 2 diabetes mellitus with hyperglycemia; I25.10 Atherosclerotic heart disease of native coronary artery without angina pectoris; Z95.5 Presence of coronary angioplasty implant and graft; D50.9 Iron deficiency anemia, unspecified; E78.5 Hyperlipidemia, unspecified; G47.33 Obstructive sleep apnea (adult) (pediatric); K21.9 Gastro-esophageal reflux disease without esophagitis; H91.93 Unspecified hearing loss, bilateral; M81.0 Age-related osteoporosis without current pathological fracture; K76.0 Fatty (change of) liver, not elsewhere classified; I73.9 Peripheral vascular disease, unspecified; Z85.42 Personal history of malignant neoplasm of other parts of uterus; Z90.79 Acquired absence of other genital organ(s); Z96.651 Presence of right artificial knee joint; I10 Essential (primary) hypertension; E66.9 Obesity, unspecified; Z79.82 Long term (current) use of aspirin; Z79.4 Long term (current) use of insulin; Z79.899 Other long term (current) drug therapy; Z88.1 Allergy status to other antibiotic agents; Z91.018 Allergy to other foods; Z68.36 Body mass index [BMI] 36.0-36.9, adult

== ENCOUNTER → 2021-01-10 | Outpatient (CLI) | payer MEDICARE, OTHER ==
[~2021-01-10] MED LIST changes: +AMLO25TA PO; +ASPI81CH33 PO; +ELIQ5TAB PO
--- NOTE | 2021-01-10 11:14 | REP ---
INDICATION: PAIN COMPARISON: None. TECHNIQUE: PA and lateral. FINDINGS: Displaced fracture of the distal clavicle with apparent increased widening/separation of the acromioclavicular (AC) joint as compared to prior examination. Underlying generalized osteopenia and degenerative changes noted. IMPRESSION: 1. Fracture of the distal clavicle again noted with increased separation at the AC joint. <Electronically signed by Timoteo Garner > 01/10/21 1111
== END ==
LOC: M SOG 10:46
PROVIDERS: ATTEND Orthopaedic Surgery Adult Reconstructive Orthopaedic Surgery
DX: S42.032A Displaced fracture of lateral end of left clavicle, initial encounter for closed fracture (principal)

== ENCOUNTER → 2021-02-08 | Outpatient (CLI) | payer MEDICARE, OTHER ==
--- NOTE | 2021-02-08 10:20 | REP ---
INDICATION: NONDISP FX OF LATERAL END OF LEFT CLAVICLE, INIT FOR CLOS FX. COMPARISON: Comparison left clavicle with views are from January 10, 2021. January 01, 2021 study is also reviewed.. TECHNIQUE: Two views of the left clavicle are obtained. FINDINGS: Comminuted somewhat diastatic fracture of the distal clavicle is again seen with some overriding. There is glenohumeral spurring. Median sternotomy wires are noted and there is diffuse osteopenia. IMPRESSION: Healing comminuted fracture of the distal clavicle unchanged in position. <Electronically signed by Chico Hamlin > 02/08/21 [id number]
== END ==
LOC: M SOG 09:48
PROVIDERS: ATTEND Orthopaedic Surgery Adult Reconstructive Orthopaedic Surgery
DX: S42.035A Nondisplaced fracture of lateral end of left clavicle, initial encounter for closed fracture (principal); X58.XXXA Exposure to other specified factors, initial encounter; Y92.9 Unspecified place or not applicable; Y99.9 Unspecified external cause status

== ENCOUNTER → 2021-09-14 | Outpatient (CLI) | payer MEDICARE, OTHER ==
[~2021-09-14] MED LIST changes: -CEFD1CAP8 PO; +CEFD300C41 PO
[2021-09-14 15:21] LABS: BASO # 0.1 10^3/uL (0.0-0.2); EOS # 0.4 10^3/uL (0.0-0.5); EOS % 4.9 % (0.0-3.0); HEMATOCRIT 40.2 % (36.0-47.0); HEMOGLOBIN 12.5 g/dl (12.0-15.5); LYMPH # 1.7 10^3/uL (1.5-5.0); LYMPH % 18.8 % (24.0-44.0); MEAN CORPUSCULAR HEMOGLOBIN 27.5 pg (27.0-33.0); MEAN CORPUSCULAR HGB CONC 31.1 g/dl (32.0-36.5); MEAN CORPUSCULAR VOLUME 88.4 fl (80.0-96.0); MONO # 0.9 10^3/uL (0.0-0.8); MONO % 9.7 % (2.0-8.0); NEUTROPHILS # 5.8 10^3/uL (1.5-8.5); PLATELET COUNT, AUTOMATED 275 10^3/uL (150-450); RED BLOOD COUNT 4.55 10^6/uL (4.00-5.40); WHITE BLOOD COUNT 8.9 10^3/uL (4.0-10.0)
[2021-09-14 15:47] LABS: ALBUMIN 3.5 GM/DL (3.2-5.2); BILIRUBIN,TOTAL 0.4 MG/DL (0.2-1.0); CALCIUM LEVEL 9.6 MG/DL (8.8-10.2); CHOLESTEROL RISK RATIO 3.189 (<5); CREATININE FOR GFR 1.07 MG/DL (0.55-1.30); GLOMERULAR FILTRATION RATE 52.5 (>32); POTASSIUM SERUM 5.1 MEQ/L (3.5-5.1); TOTAL PROTEIN 6.8 GM/DL (6.4-8.2); URIC ACID 3.8 MG/DL (2.6-6.0)
[2021-09-14 16:16] LABS: CREATININE, URINE 74.1 MG/DL; MAU/CREAT RATIO 643.7 MCG/MG (0.0-30.0)
[2021-09-14 18:29] LABS: HEMOGLOBIN A1c 13.6 %
== END ==
LOC: M PLAIMG 11:59
PROVIDERS: ATTEND Physician Assistant
DX: E11.22 Type 2 diabetes mellitus with diabetic chronic kidney disease (principal); N18.30 Chronic kidney disease, stage 3 unspecified; I25.10 Atherosclerotic heart disease of native coronary artery without angina pectoris; M51.36 Other intervertebral disc degeneration, lumbar region; M85.88 Other specified disorders of bone density and structure, other site

== ENCOUNTER → 2021-12-25 | Outpatient (CLI) | payer MEDICARE, OTHER ==
[2021-12-25 14:53] LABS: ALBUMIN 3.2 GM/DL (3.2-5.2); BILIRUBIN,TOTAL 0.4 MG/DL (0.2-1.0); CALCIUM LEVEL 9.4 MG/DL (8.8-10.2); CREATININE FOR GFR 1.21 MG/DL (0.55-1.30); GLOMERULAR FILTRATION RATE 45.6 (>32); POTASSIUM SERUM 4.9 MEQ/L (3.5-5.1); TOTAL PROTEIN 6.7 GM/DL (6.4-8.2)
[2021-12-25 16:06] LABS: HEMOGLOBIN A1c 8.7 %
== END ==
LOC: M PLALAB 10:29
PROVIDERS: ATTEND Physician Assistant
DX: E11.22 Type 2 diabetes mellitus with diabetic chronic kidney disease (principal); N18.9 Chronic kidney disease, unspecified

== ENCOUNTER → 2022-07-26 | Outpatient (CLI) | payer MEDICARE, OTHER ==
[2022-07-26 14:47] LABS: BASO # 0.1 10^3/uL (0.0-0.2); BASO % 0.9 % (0.0-1.0); EOS # 0.3 10^3/uL (0.0-0.5); EOS % 3.9 % (0.0-3.0); HEMATOCRIT 38.3 % (36.0-47.0); HEMOGLOBIN 11.4 g/dl (12.0-15.5); LYMPH # 2.1 10^3/uL (1.5-5.0); LYMPH % 24.9 % (24.0-44.0); MEAN CORPUSCULAR HEMOGLOBIN 26.8 pg (27.0-33.0); MEAN CORPUSCULAR HGB CONC 29.8 g/dl (32.0-36.5); MEAN CORPUSCULAR VOLUME 90.1 fl (80.0-96.0); MONO # 0.8 10^3/uL (0.0-0.8); MONO % 8.8 % (2.0-8.0); NEUTROPHILS # 5.2 10^3/uL (1.5-8.5); NEUTROPHILS % 60.9 % (36.0-66.0); PLATELET COUNT, AUTOMATED 320 10^3/uL (150-450); RED BLOOD COUNT 4.25 10^6/uL (4.00-5.40); WHITE BLOOD COUNT 8.5 10^3/uL (4.0-10.0)
[2022-07-26 15:17] LABS: ALBUMIN 3.1 G/DL (3.2-5.2); AST/SGOT 7.99999 U/L (<34); BILIRUBIN,TOTAL 0.2 MG/DL (0.3-1.2); CALCIUM LEVEL 9.1 MG/DL (8.3-10.6); CREATININE FOR GFR 1.37 MG/DL (0.55-1.30); GLOMERULAR FILTRATION RATE 39.4 (>32); POTASSIUM SERUM 4.8 MMOL/L (3.5-5.1); TOTAL PROTEIN 6.7 G/DL (5.7-8.2)
[2022-07-26 17:27] LABS: HEMOGLOBIN A1c 11.6 % (4.0-6.0)
== END ==
LOC: M PLALAB 09:16
PROVIDERS: ATTEND Physician Assistant
DX: E11.22 Type 2 diabetes mellitus with diabetic chronic kidney disease (principal)

== ENCOUNTER → 2023-03-14 | Outpatient (CLI) | payer MEDICARE, OTHER ==
[2023-03-14 15:48] LABS: HEMOGLOBIN A1c 11.8 % (4.0-6.0)
[2023-03-14 15:52] LABS: BASO # 0.1 10^3/uL (0.0-0.2); BASO % 1.1 % (0.0-1.0); EOS # 0.6 10^3/uL (0.0-0.5); EOS % 7.7 % (0.0-3.0); HEMATOCRIT 40.5 % (36.0-47.0); HEMOGLOBIN 12.3 g/dl (12.0-15.5); LYMPH # 2.2 10^3/uL (1.5-5.0); LYMPH % 27.1 % (24.0-44.0); MEAN CORPUSCULAR HEMOGLOBIN 26.3 pg (27.0-33.0); MEAN CORPUSCULAR HGB CONC 30.4 g/dl (32.0-36.5); MEAN CORPUSCULAR VOLUME 86.5 fl (80.0-96.0); MONO # 0.7 10^3/uL (0.0-0.8); MONO % 8.6 % (2.0-8.0); NEUTROPHILS # 4.4 10^3/uL (1.5-8.5); NEUTROPHILS % 55.1 % (36.0-66.0); PLATELET COUNT, AUTOMATED 234 10^3/uL (150-450); RED BLOOD COUNT 4.68 10^6/uL (4.00-5.40)
[2023-03-14 16:09] LABS: ALBUMIN 3.4 G/DL (3.2-5.2); BILIRUBIN,TOTAL 0.4 MG/DL (0.3-1.2); CALCIUM LEVEL 9.4 MG/DL (8.3-10.6); CHOLESTEROL RISK RATIO 3.6 (<5); CREATININE FOR GFR 1.15 MG/DL (0.55-1.30); GLOMERULAR FILTRATION RATE 48.1 (>32); HDL CHOLESTEROL 35.5 MG/DL (>40); LDL CHOLESTEROL 54.7 MG/DL (<100); NON-HDL-C 92.5 MG/DL; POTASSIUM SERUM 4.6 MMOL/L (3.5-5.1); TOTAL PROTEIN 6.8 G/DL (5.7-8.2)
== END ==
LOC: M PLALAB 12:07
PROVIDERS: ATTEND Physician Assistant
DX: E78.2 Mixed hyperlipidemia (principal); E11.22 Type 2 diabetes mellitus with diabetic chronic kidney disease

== ENCOUNTER 2023-08-02 20:13 | Inpatient (IN) | payer MEDICARE, OTHER ==
[~2023-08-02] VITALS: Ht 160 cm; Wt 90.1 kg
[~2023-08-02 20:13] MED LIST changes: +CEFD1CAP9 PO; -CEFD300C41 PO; +MECL-209 PO; -MECL1TAB31 PO
[2023-08-02] MEDS ORDERED: RISP0.253 PO (20:39)
[2023-08-02] MEDS ORDERED: CITA10TA7 PO (20:39)
[2023-08-02] MEDS ORDERED: MECL25CH45 PO (20:39)
[2023-08-02] MEDS ORDERED: RAMI1CAP22 PO (20:39)
[2023-08-02 21:11] LABS: BASO # 0.1 10^3/uL (0.0-0.2); BASO % 0.5 % (0.0-1.0); EOS # 0.2 10^3/uL (0.0-0.5); EOS % 2.6 % (0.0-3.0); HEMOGLOBIN 13.1 g/dl (12.0-15.5); LYMPH # 1.5 10^3/uL (1.5-5.0); LYMPH % 15.8 % (24.0-44.0); MEAN CORPUSCULAR HEMOGLOBIN 28.2 pg (27.0-33.0); MEAN CORPUSCULAR HGB CONC 32.8 g/dl (32.0-36.5); MONO # 0.9 10^3/uL (0.0-0.8); NEUTROPHILS # 6.5 10^3/uL (1.5-8.5); NEUTROPHILS % 70.1 % (36.0-66.0); PLATELET COUNT, AUTOMATED 247 10^3/uL (150-450); RED BLOOD COUNT 4.65 10^6/uL (4.00-5.40); WHITE BLOOD COUNT 9.3 10^3/uL (4.0-10.0)
[2023-08-02 21:33] LABS: CALCIUM LEVEL 9.2 MG/DL (8.3-10.6); CREATININE FOR GFR 0.96 MG/DL (0.55-1.30); GLOMERULAR FILTRATION RATE 59.2 (>32); POTASSIUM SERUM 4.5 MMOL/L (3.5-5.1)
[2023-08-02] MEDS ORDERED: INSULIN LISPRO (NovoLOG) PER UNIT SC STA (21:34)
[2023-08-02 22:00] LABS: INR 0.99; PARTIAL THROMBOPLASTIN TIME 25.1 SECONDS (24.8-34.2); PROTHROMBIN TIME 12.8 SECONDS (12.5-14.5)
[2023-08-02] MEDS: MORPHINE 2 MG/ML 1ML VIAL IV PRN ×2 (22:10→23:37)
[2023-08-02 22:36] LABS: HEMOGLOBIN A1c > 14.0 % (4.0-6.0)
[2023-08-03] VITALS (8 sets, daily range): BP systolic 113–156; BP diastolic 58–75; TEMP 96.2–98.3; O2SAT 92–99
[2023-08-03] MEDS: MORPHINE 2 MG/ML 1ML VIAL IV PRN ×2 (00:55→06:52)
[2023-08-03] MEDS ORDERED: METOCLOPRAMIDE INJ 10MG/2ML VIAL IV ONE (01:00)
[2023-08-03] MEDS ORDERED: hydrALAZINE 20MG/ML 1ML VIAL IV ONE (01:55)
[2023-08-03 02:13] LABS: RSV AMPLIFICATION NEGATIVE (NEGATIVE)
[2023-08-03] MEDS ORDERED: MED REC CURRENTLY UNOBTAINABLE XX SCH (02:35)
[2023-08-03] MEDS ORDERED: GLUCOSE 4GM CHEW TABLET PO PRN (03:15)
[2023-08-03] MEDS ORDERED: GLUCAGON INJ 1MG VIAL SC PRN (03:15)
[2023-08-03] MEDS ORDERED: DEXTROSE 50% 50ML SYRINGE IV PRN (03:15)
[2023-08-03] MEDS ORDERED: HEPARIN SOD (PORCINE) 5000UNITS/ML 1ML VIAL/SYRINGE SC SCH ×2 (06:00→09:00)
[2023-08-03 06:21] LABS: BASO # 0.1 10^3/uL (0.0-0.2); BASO % 0.4 % (0.0-1.0); EOS # 0.1 10^3/uL (0.0-0.5); EOS % 0.4 % (0.0-3.0); HEMOGLOBIN 12.6 g/dl (12.0-15.5); LYMPH # 1.3 10^3/uL (1.5-5.0); LYMPH % 10.1 % (24.0-44.0); MEAN CORPUSCULAR HEMOGLOBIN 28.1 pg (27.0-33.0); MEAN CORPUSCULAR HGB CONC 32.3 g/dl (32.0-36.5); MEAN CORPUSCULAR VOLUME 87.1 fl (80.0-96.0); MONO # 1.1 10^3/uL (0.0-0.8); NEUTROPHILS % 79.6 % (36.0-66.0); PLATELET COUNT, AUTOMATED 224 10^3/uL (150-450); RED BLOOD COUNT 4.48 10^6/uL (4.00-5.40); WHITE BLOOD COUNT 12.5 10^3/uL (4.0-10.0)
[2023-08-03 06:42] LABS: BLOOD UREA NITROGEN 25 MG/DL (9-23); CARBON DIOXIDE LEVEL 23 MMOL/L (20-31); CHLORIDE LEVEL 99 MMOL/L (98-107); CREATININE FOR GFR 0.87 MG/DL (0.55-1.30); GLOMERULAR FILTRATION RATE > 60.0 (>32); GLUCOSE, FASTING 413 MG/DL (74-106); MAGNESIUM LEVEL 1.9 MG/DL (1.8-2.4); POTASSIUM SERUM 4.7 MMOL/L (3.5-5.1); SODIUM LEVEL 131 MMOL/L (136-145)
[2023-08-03] MEDS: cefTRIAXone SOD 1 GM in D5W MINI-BAG PLUS 50 ML IV SCH (06:51)
[2023-08-03] MEDS: INSULIN LISPRO (NovoLOG) PER UNIT SC SCH ×4 (06:53→21:00)
[2023-08-03] MEDS ORDERED: LEVEMIR (INSULIN DETEMIR) 1 UNITS/0.01ML SC SCH (09:00)
[2023-08-03] MEDS: LEVEMIR (INSULIN DETEMIR) 1 UNITS/0.01ML SC SCH ×2 (12:09→21:16)
[2023-08-03] MEDS ORDERED: ELIQ5TAB PO (12:33)
[2023-08-03] MEDS ORDERED: AMLO2.5T3 PO (12:33)
[2023-08-03] MEDS ORDERED: ALBUTEROL 90 MCG/ACT 8GM HFA INHALER INH PRN (12:45)
[2023-08-03] MEDS ORDERED: PILL CUTTER 1 EACH XX PRN (14:30)
[2023-08-03] MEDS: risperiDONE 0.5 MG TAB PO SCH (17:52)
[2023-08-03] MEDS: ramipriL 1.25 MG CAP PO SCH (17:52)
[2023-08-03] MEDS: CitaloPRAM (CeleXA) 10 MG TABLET PO SCH (17:52)
[2023-08-03] MEDS: METOPROLOL TART 50 MG TAB PO SCH (21:17)
[2023-08-03] MEDS: ROSUVASTATIN 10 MG TAB (CRESTOR) PO SCH (21:17)
[2023-08-04 03:46] VITALS: BP 118/63; TEMP 96.8; O2SAT 95
[2023-08-04] MEDS: cefTRIAXone SOD 1 GM in D5W MINI-BAG PLUS 50 ML IV SCH (05:01)
[2023-08-04 05:56] LABS: BASO # 0.1 10^3/uL (0.0-0.2); BASO % 0.7 % (0.0-1.0); EOS # 0.4 10^3/uL (0.0-0.5); EOS % 4.6 % (0.0-3.0); HEMATOCRIT 35.6 % (36.0-47.0); HEMOGLOBIN 11.2 g/dl (12.0-15.5); LYMPH # 1.1 10^3/uL (1.5-5.0); LYMPH % 11.7 % (24.0-44.0); MEAN CORPUSCULAR HEMOGLOBIN 27.5 pg (27.0-33.0); MEAN CORPUSCULAR HGB CONC 31.5 g/dl (32.0-36.5); MEAN CORPUSCULAR VOLUME 87.5 fl (80.0-96.0); MONO % 10.5 % (2.0-8.0); NEUTROPHILS # 6.9 10^3/uL (1.5-8.5); PLATELET COUNT, AUTOMATED 180 10^3/uL (150-450); RED BLOOD COUNT 4.07 10^6/uL (4.00-5.40); WHITE BLOOD COUNT 9.5 10^3/uL (4.0-10.0)
[2023-08-04 06:19] LABS: BLOOD UREA NITROGEN 29 MG/DL (9-23); CALCIUM LEVEL 8.9 MG/DL (8.3-10.6); CARBON DIOXIDE LEVEL 26 MMOL/L (20-31); CHLORIDE LEVEL 102 MMOL/L (98-107); CREATININE FOR GFR 0.88 MG/DL (0.55-1.30); GLOMERULAR FILTRATION RATE > 60.0 (>32); GLUCOSE, FASTING 210 MG/DL (74-106); MAGNESIUM LEVEL 1.9 MG/DL (1.8-2.4); POTASSIUM SERUM 4.1 MMOL/L (3.5-5.1); SODIUM LEVEL 136 MMOL/L (136-145)
[2023-08-04 08:06] VITALS: BP 128/62; TEMP 97.6; O2SAT 95
[2023-08-04] MEDS: LEVEMIR (INSULIN DETEMIR) 1 UNITS/0.01ML SC SCH ×2 (09:04→21:05)
[2023-08-04] MEDS: INSULIN LISPRO (NovoLOG) PER UNIT SC SCH ×4 (09:04→21:05)
[2023-08-04] MEDS: METOPROLOL TART 50 MG TAB PO SCH ×2 (09:04→21:05)
[2023-08-04] MEDS: risperiDONE 0.5 MG TAB PO SCH (09:05)
[2023-08-04] MEDS: ramipriL 1.25 MG CAP PO SCH (09:05)
[2023-08-04] MEDS: ACETAMINOPHEN TAB 650MG DOSE (2X325MG) PO PRN (09:05)
[2023-08-04] MEDS: ASPIRIN 81MG CHEW TABLET PO SCH (09:05)
[2023-08-04] MEDS: CitaloPRAM (CeleXA) 10 MG TABLET PO SCH (09:06)
[2023-08-04] MEDS: MORPHINE 2 MG/ML 1ML VIAL IV PRN (11:09)
[2023-08-04 12:33] VITALS: BP 106/56; TEMP 98; O2SAT 97
[2023-08-04 13:25] LABS: CREATININE FOR GFR 0.92 MG/DL (0.55-1.30); GLOMERULAR FILTRATION RATE > 60.0 (>32)
[2023-08-04 16:00] VITALS: BP 102/53; TEMP 97.9; O2SAT 95
[2023-08-04] MEDS: GABAPENTIN 100 MG CAP PO SCH ×2 (17:23→21:05)
[2023-08-04 18:30] VITALS: BP 141/64; TEMP 97.5; O2SAT 95
[2023-08-04 20:31] VITALS: BP 138/65; TEMP 97.5; O2SAT 94
[2023-08-04] MEDS: ENOXAPARIN 100MG/1ML SYRINGE (J1650 PER 10MG) SC SCH (21:05)
[2023-08-04] MEDS: ROSUVASTATIN 10 MG TAB (CRESTOR) PO SCH (21:05)
[2023-08-05] MEDS: cefTRIAXone SOD 1 GM in D5W MINI-BAG PLUS 50 ML IV SCH (04:29)
[2023-08-05 05:48] LABS: BASO # 0.1 10^3/uL (0.0-0.2); BASO % 0.7 % (0.0-1.0); EOS # 0.7 10^3/uL (0.0-0.5); EOS % 7.7 % (0.0-3.0); HEMATOCRIT 36.9 % (36.0-47.0); HEMOGLOBIN 11.8 g/dl (12.0-15.5); LYMPH # 1.6 10^3/uL (1.5-5.0); LYMPH % 18.9 % (24.0-44.0); MEAN CORPUSCULAR HEMOGLOBIN 27.8 pg (27.0-33.0); MEAN CORPUSCULAR VOLUME 86.8 fl (80.0-96.0); MONO % 11.4 % (2.0-8.0); NEUTROPHILS # 5.2 10^3/uL (1.5-8.5); NEUTROPHILS % 60.7 % (36.0-66.0); PLATELET COUNT, AUTOMATED 158 10^3/uL (150-450); RED BLOOD COUNT 4.25 10^6/uL (4.00-5.40); WHITE BLOOD COUNT 8.5 10^3/uL (4.0-10.0)
[2023-08-05 06:00] VITALS: BP 132/65; TEMP 97.7; O2SAT 92
[2023-08-05 06:20] LABS: BLOOD UREA NITROGEN 29 MG/DL (9-23); CALCIUM LEVEL 8.7 MG/DL (8.3-10.6); CARBON DIOXIDE LEVEL 25 MMOL/L (20-31); CHLORIDE LEVEL 104 MMOL/L (98-107); GLOMERULAR FILTRATION RATE > 60.0 (>32); GLUCOSE, FASTING 123 MG/DL (74-106); MAGNESIUM LEVEL 1.9 MG/DL (1.8-2.4); POTASSIUM SERUM 4.5 MMOL/L (3.5-5.1); SODIUM LEVEL 136 MMOL/L (136-145)
[2023-08-05] MEDS: MORPHINE 2 MG/ML 1ML VIAL IV PRN (07:56)
[2023-08-05] MEDS: ENOXAPARIN 100MG/1ML SYRINGE (J1650 PER 10MG) SC SCH (08:49)
[2023-08-05] MEDS: INSULIN LISPRO (NovoLOG) PER UNIT SC SCH ×4 (08:49→21:00)
[2023-08-05] MEDS: LEVEMIR (INSULIN DETEMIR) 1 UNITS/0.01ML SC SCH ×2 (08:49→21:15)
[2023-08-05] MEDS: CitaloPRAM (CeleXA) 10 MG TABLET PO SCH (08:50)
[2023-08-05] MEDS: risperiDONE 0.5 MG TAB PO SCH (08:50)
[2023-08-05] MEDS: ASPIRIN 81MG CHEW TABLET PO SCH (08:50)
[2023-08-05] MEDS: GABAPENTIN 100 MG CAP PO SCH ×3 (08:50→21:15)
[2023-08-05] MEDS: ramipriL 1.25 MG CAP PO SCH (08:52)
[2023-08-05] MEDS: METOPROLOL TART 50 MG TAB PO SCH ×2 (08:53→21:17)
[2023-08-05] MEDS: LIDOCAINE 4% CREAM 5GM (LMX4) TOP SCH ×2 (10:38→21:00)
[2023-08-05 14:00] VITALS: BP 112/56; TEMP 97.7; O2SAT 90
[2023-08-05] MEDS: PERCOCET 5MG/325MG TAB PO PRN (16:19)
[2023-08-05 17:30] VITALS: O2SAT 84
[2023-08-05 17:35] VITALS: O2SAT 90
[2023-08-05 19:15] VITALS: O2SAT 85
[2023-08-05] MEDS ORDERED: APIXABAN 5 MG TAB (ELIQUIS) PO SCH (21:00)
[2023-08-05] MEDS: ROSUVASTATIN 10 MG TAB (CRESTOR) PO SCH (21:15)
[2023-08-05 21:42] VITALS: BP 133/64; TEMP 97.5; O2SAT 100
[2023-08-06 05:49] LABS: BASO # 0.1 10^3/uL (0.0-0.2); BASO % 0.8 % (0.0-1.0); EOS # 0.6 10^3/uL (0.0-0.5); EOS % 6.9 % (0.0-3.0); HEMATOCRIT 36.5 % (36.0-47.0); HEMOGLOBIN 11.4 g/dl (12.0-15.5); LYMPH # 1.7 10^3/uL (1.5-5.0); LYMPH % 20.1 % (24.0-44.0); MEAN CORPUSCULAR HEMOGLOBIN 27.9 pg (27.0-33.0); MEAN CORPUSCULAR HGB CONC 31.2 g/dl (32.0-36.5); MEAN CORPUSCULAR VOLUME 89.5 fl (80.0-96.0); MONO # 1.1 10^3/uL (0.0-0.8); MONO % 13.1 % (2.0-8.0); NEUTROPHILS # 5.1 10^3/uL (1.5-8.5); NEUTROPHILS % 58.3 % (36.0-66.0); PLATELET COUNT, AUTOMATED 173 10^3/uL (150-450); RED BLOOD COUNT 4.08 10^6/uL (4.00-5.40); WHITE BLOOD COUNT 8.7 10^3/uL (4.0-10.0)
[2023-08-06 06:00] VITALS: BP 114/56; TEMP 97.7; O2SAT 97
[2023-08-06 06:29] LABS: CALCIUM LEVEL 9.1 MG/DL (8.3-10.6); CREATININE FOR GFR 0.96 MG/DL (0.55-1.30); GLOMERULAR FILTRATION RATE 59.2 (>32); POTASSIUM SERUM 4.7 MMOL/L (3.5-5.1)
[2023-08-06] MEDS: INSULIN LISPRO (NovoLOG) PER UNIT SC SCH ×5 (07:30→20:51)
[2023-08-06] MEDS: CitaloPRAM (CeleXA) 10 MG TABLET PO SCH (08:27)
[2023-08-06] MEDS: GABAPENTIN 100 MG CAP PO SCH ×3 (08:27→20:50)
[2023-08-06] MEDS: ASPIRIN 81MG CHEW TABLET PO SCH (08:29)
[2023-08-06] MEDS: FUROSEMIDE 20 MG TAB PO SCH (08:30)
[2023-08-06] MEDS: ramipriL 1.25 MG CAP PO SCH (08:30)
[2023-08-06] MEDS: METOPROLOL TART 50 MG TAB PO SCH (08:30)
[2023-08-06] MEDS: LEVEMIR (INSULIN DETEMIR) 1 UNITS/0.01ML SC SCH ×2 (08:31→20:52)
[2023-08-06] MEDS: risperiDONE 0.5 MG TAB PO SCH (08:31)
[2023-08-06] MEDS: LIDOCAINE 4% CREAM 5GM (LMX4) TOP SCH (08:32)
[2023-08-06] MEDS: APIXABAN 5 MG TAB (ELIQUIS) PO SCH ×2 (11:44→20:50)
[2023-08-06 14:00] VITALS: BP 141/58; TEMP 97.7; O2SAT 96
[2023-08-06] MEDS: ROSUVASTATIN 10 MG TAB (CRESTOR) PO SCH (20:50)
[2023-08-06] MEDS: METOPROLOL TART 25 MG TABLET PO SCH (20:51)
[2023-08-07] MEDS: PERCOCET 5MG/325MG TAB PO PRN ×3 (04:45→17:48)
[2023-08-07 05:43] VITALS: BP 105/56; TEMP 97.9; O2SAT 97
[2023-08-07 06:06] LABS: BASO # 0.1 10^3/uL (0.0-0.2); BASO % 0.7 % (0.0-1.0); EOS # 0.5 10^3/uL (0.0-0.5); EOS % 5.6 % (0.0-3.0); HEMATOCRIT 37.2 % (36.0-47.0); HEMOGLOBIN 11.7 g/dl (12.0-15.5); LYMPH # 1.6 10^3/uL (1.5-5.0); LYMPH % 19.1 % (24.0-44.0); MEAN CORPUSCULAR HGB CONC 31.5 g/dl (32.0-36.5); MONO # 1.1 10^3/uL (0.0-0.8); MONO % 13.5 % (2.0-8.0); NEUTROPHILS # 4.9 10^3/uL (1.5-8.5); NEUTROPHILS % 60.2 % (36.0-66.0); PLATELET COUNT, AUTOMATED 185 10^3/uL (150-450); RED BLOOD COUNT 4.18 10^6/uL (4.00-5.40); WHITE BLOOD COUNT 8.2 10^3/uL (4.0-10.0)
[2023-08-07 06:39] LABS: BLOOD UREA NITROGEN 29 MG/DL (9-23); CALCIUM LEVEL 8.6 MG/DL (8.3-10.6); CARBON DIOXIDE LEVEL 26 MMOL/L (20-31); CHLORIDE LEVEL 103 MMOL/L (98-107); CREATININE FOR GFR 0.86 MG/DL (0.55-1.30); GLOMERULAR FILTRATION RATE > 60.0 (>32); GLUCOSE, FASTING 125 MG/DL (74-106); MAGNESIUM LEVEL 2.1 MG/DL (1.8-2.4); SODIUM LEVEL 133 MMOL/L (136-145)
[2023-08-07] MEDS: ASPIRIN 81MG CHEW TABLET PO SCH (09:26)
[2023-08-07] MEDS: APIXABAN 5 MG TAB (ELIQUIS) PO SCH ×2 (09:26→20:48)
[2023-08-07] MEDS: ramipriL 1.25 MG CAP PO SCH (09:26)
[2023-08-07] MEDS: METOPROLOL TART 25 MG TABLET PO SCH ×2 (09:27→20:47)
[2023-08-07] MEDS: LEVEMIR (INSULIN DETEMIR) 1 UNITS/0.01ML SC SCH ×2 (09:27→20:48)
[2023-08-07] MEDS: CitaloPRAM (CeleXA) 10 MG TABLET PO SCH (09:27)
[2023-08-07] MEDS: GABAPENTIN 100 MG CAP PO SCH ×3 (09:27→20:48)
[2023-08-07] MEDS: FUROSEMIDE 20 MG TAB PO SCH (09:27)
[2023-08-07] MEDS: INSULIN LISPRO (NovoLOG) PER UNIT SC SCH ×4 (09:28→19:57)
[2023-08-07] MEDS: risperiDONE 0.5 MG TAB PO SCH (09:37)
[2023-08-07 14:00] VITALS: BP 98/47; TEMP 97; O2SAT 96
[2023-08-07 14:15] VITALS: BP 102/52
[2023-08-07] MEDS ORDERED: FLUCONAZOLE 50MG TABLET PO ONE (16:00)
[2023-08-07] MEDS: ROSUVASTATIN 10 MG TAB (CRESTOR) PO SCH (20:48)
[2023-08-07] MEDS: ACETAMINOPHEN TAB 650MG DOSE (2X325MG) PO PRN (20:49)
[2023-08-07] MEDS: NYSTATIN 100,000 UNITS/GM TOPICAL PWD 15GM TOP SCH (20:50)
[2023-08-08] MEDS: PERCOCET 5MG/325MG TAB PO PRN (05:02)
[2023-08-08 06:29] LABS: BASO # 0.1 10^3/uL (0.0-0.2); BASO % 0.8 % (0.0-1.0); EOS # 0.6 10^3/uL (0.0-0.5); EOS % 8.2 % (0.0-3.0); HEMATOCRIT 33.5 % (36.0-47.0); HEMOGLOBIN 10.6 g/dl (12.0-15.5); LYMPH # 1.6 10^3/uL (1.5-5.0); LYMPH % 22.1 % (24.0-44.0); MEAN CORPUSCULAR HEMOGLOBIN 28.2 pg (27.0-33.0); MEAN CORPUSCULAR HGB CONC 31.6 g/dl (32.0-36.5); MEAN CORPUSCULAR VOLUME 89.1 fl (80.0-96.0); MONO % 12.8 % (2.0-8.0); NEUTROPHILS # 4.1 10^3/uL (1.5-8.5); NEUTROPHILS % 55.3 % (36.0-66.0); PLATELET COUNT, AUTOMATED 204 10^3/uL (150-450); RED BLOOD COUNT 3.76 10^6/uL (4.00-5.40); WHITE BLOOD COUNT 7.4 10^3/uL (4.0-10.0)
[2023-08-08 07:04] LABS: CALCIUM LEVEL 8.8 MG/DL (8.3-10.6); CREATININE FOR GFR 1.15 MG/DL (0.55-1.30); GLOMERULAR FILTRATION RATE 48.1 (>32); POTASSIUM SERUM 5.3 MMOL/L (3.5-5.1)
[2023-08-08] MEDS: risperiDONE 0.5 MG TAB PO SCH (08:57)
[2023-08-08] MEDS: METOPROLOL TART 25 MG TABLET PO SCH ×2 (08:58→20:02)
[2023-08-08] MEDS: CitaloPRAM (CeleXA) 10 MG TABLET PO SCH (08:58)
[2023-08-08] MEDS: APIXABAN 5 MG TAB (ELIQUIS) PO SCH ×2 (08:58→20:02)
[2023-08-08] MEDS: GABAPENTIN 100 MG CAP PO SCH ×3 (08:58→20:02)
[2023-08-08] MEDS: FUROSEMIDE 20 MG TAB PO SCH (08:59)
[2023-08-08] MEDS: ASPIRIN 81MG CHEW TABLET PO SCH (08:59)
[2023-08-08] MEDS: ramipriL 1.25 MG CAP PO SCH (08:59)
[2023-08-08] MEDS: LEVEMIR (INSULIN DETEMIR) 1 UNITS/0.01ML SC SCH ×2 (09:00→20:24)
[2023-08-08] MEDS: INSULIN LISPRO (NovoLOG) PER UNIT SC SCH ×4 (09:01→20:25)
[2023-08-08] MEDS: NYSTATIN 100,000 UNITS/GM TOPICAL PWD 15GM TOP SCH ×2 (09:02→20:03)
[2023-08-08] MEDS: ROSUVASTATIN 10 MG TAB (CRESTOR) PO SCH (20:02)
[2023-08-09 04:40] VITALS: BP 133/58; TEMP 98.1; O2SAT 90
[2023-08-09 05:55] LABS: BASO # 0.1 10^3/uL (0.0-0.2); BASO % 0.7 % (0.0-1.0); EOS # 0.6 10^3/uL (0.0-0.5); EOS % 6.8 % (0.0-3.0); HEMATOCRIT 32.9 % (36.0-47.0); HEMOGLOBIN 10.4 g/dl (12.0-15.5); LYMPH # 1.5 10^3/uL (1.5-5.0); LYMPH % 18.3 % (24.0-44.0); MEAN CORPUSCULAR HEMOGLOBIN 27.6 pg (27.0-33.0); MEAN CORPUSCULAR HGB CONC 31.6 g/dl (32.0-36.5); MEAN CORPUSCULAR VOLUME 87.3 fl (80.0-96.0); MONO % 11.7 % (2.0-8.0); NEUTROPHILS # 5.1 10^3/uL (1.5-8.5); NEUTROPHILS % 61.5 % (36.0-66.0); PLATELET COUNT, AUTOMATED 241 10^3/uL (150-450); RED BLOOD COUNT 3.77 10^6/uL (4.00-5.40); WHITE BLOOD COUNT 8.4 10^3/uL (4.0-10.0)
[2023-08-09 06:14] LABS: CALCIUM LEVEL 8.7 MG/DL (8.3-10.6); CREATININE FOR GFR 1.11 MG/DL (0.55-1.30); GLOMERULAR FILTRATION RATE 50.1 (>32); MAGNESIUM LEVEL 1.9 MG/DL (1.8-2.4); POTASSIUM SERUM 5.4 MMOL/L (3.5-5.1)
[2023-08-09] MEDS: PERCOCET 5MG/325MG TAB PO PRN ×2 (09:47→20:50)
[2023-08-09] MEDS: LEVEMIR (INSULIN DETEMIR) 1 UNITS/0.01ML SC SCH ×2 (09:48→20:47)
[2023-08-09] MEDS: INSULIN LISPRO (NovoLOG) PER UNIT SC SCH ×4 (09:49→20:48)
[2023-08-09] MEDS: ASPIRIN 81MG CHEW TABLET PO SCH (09:49)
[2023-08-09] MEDS: APIXABAN 5 MG TAB (ELIQUIS) PO SCH ×2 (09:50→20:48)
[2023-08-09] MEDS: risperiDONE 0.5 MG TAB PO SCH (09:50)
[2023-08-09] MEDS: CitaloPRAM (CeleXA) 10 MG TABLET PO SCH (09:51)
[2023-08-09] MEDS: GABAPENTIN 100 MG CAP PO SCH ×3 (09:51→20:49)
[2023-08-09] MEDS: FUROSEMIDE 20 MG TAB PO SCH (09:51)
[2023-08-09] MEDS: METOPROLOL TART 25 MG TABLET PO SCH ×2 (09:52→20:38)
[2023-08-09] MEDS: ramipriL 1.25 MG CAP PO SCH (09:53)
[2023-08-09] MEDS: NYSTATIN 100,000 UNITS/GM TOPICAL PWD 15GM TOP SCH ×2 (09:54→21:07)
[2023-08-09 15:53] VITALS: BP 94/48; TEMP 95.6; O2SAT 92
[2023-08-09] MEDS ORDERED: PATIROMER SORBITEX CALCIUM 8.4 GM POWDER PACKET (VELTASSA) PO ONE (16:05)
[2023-08-09 16:15] VITALS: BP 90/38; TEMP 97.6
[2023-08-09] MEDS ORDERED: SODIUM BICARBONATE 8.4% INJ 50ML SYRINGE IV STA (16:26)
[2023-08-09] MEDS ORDERED: NS 500 ML IV ONE (16:30)
[2023-08-09 17:27] VITALS: BP 122/52; O2SAT 93
[2023-08-09] MEDS: ONDANSETRON 4MG TAB PO SCH (17:47)
[2023-08-09 20:18] VITALS: BP 113/62
[2023-08-09] MEDS: ROSUVASTATIN 10 MG TAB (CRESTOR) PO SCH (20:48)
[2023-08-10] MEDS: ONDANSETRON 4MG TAB PO SCH ×2 (05:10)
[2023-08-10 05:30] VITALS: BP 120/67; TEMP 97.2; O2SAT 94
[2023-08-10 06:10] LABS: CALCIUM LEVEL 9.2 MG/DL (8.3-10.6); CREATININE FOR GFR 0.97 MG/DL (0.55-1.30); GLOMERULAR FILTRATION RATE 58.5 (>32); POTASSIUM SERUM 4.9 MMOL/L (3.5-5.1)
[2023-08-10] MEDS: LEVEMIR (INSULIN DETEMIR) 1 UNITS/0.01ML SC SCH ×2 (09:00→21:11)
[2023-08-10] MEDS: METOPROLOL TART 25 MG TABLET PO SCH ×2 (09:01→21:10)
[2023-08-10] MEDS: ASPIRIN 81MG CHEW TABLET PO SCH (09:01)
[2023-08-10] MEDS: INSULIN LISPRO (NovoLOG) PER UNIT SC SCH ×4 (09:01→21:12)
[2023-08-10] MEDS: risperiDONE 0.5 MG TAB PO SCH (09:02)
[2023-08-10] MEDS: APIXABAN 5 MG TAB (ELIQUIS) PO SCH ×2 (09:02→21:07)
[2023-08-10] MEDS: CitaloPRAM (CeleXA) 10 MG TABLET PO SCH (09:02)
[2023-08-10] MEDS: NYSTATIN 100,000 UNITS/GM TOPICAL PWD 15GM TOP SCH ×2 (09:02→21:12)
[2023-08-10] MEDS: GABAPENTIN 100 MG CAP PO SCH ×3 (09:02→21:08)
[2023-08-10] MEDS: PERCOCET 5MG/325MG TAB PO PRN (09:02)
[2023-08-10] MEDS ORDERED: PATIROMER SORBITEX CALCIUM 8.4 GM POWDER PACKET (VELTASSA) PO SCH (12:00)
[2023-08-10] MEDS ORDERED: PATIROMER SORBITEX CALCIUM 8.4 GM POWDER PACKET (VELTASSA) PO ONE (12:00)
[2023-08-10] MEDS: ROSUVASTATIN 10 MG TAB (CRESTOR) PO SCH (21:07)
[2023-08-11 05:35] VITALS: BP 127/56; TEMP 97.9; O2SAT 94
[2023-08-11] MEDS: NYSTATIN 100,000 UNITS/GM TOPICAL PWD 15GM TOP SCH ×2 (08:50→20:29)
[2023-08-11] MEDS: GABAPENTIN 100 MG CAP PO SCH ×3 (08:51→20:28)
[2023-08-11] MEDS: LEVEMIR (INSULIN DETEMIR) 1 UNITS/0.01ML SC SCH ×2 (08:51→20:28)
[2023-08-11] MEDS: risperiDONE 0.5 MG TAB PO SCH (08:51)
[2023-08-11] MEDS: INSULIN LISPRO (NovoLOG) PER UNIT SC SCH ×4 (08:51→20:29)
[2023-08-11] MEDS: METOPROLOL TART 25 MG TABLET PO SCH ×2 (08:51→20:27)
[2023-08-11] MEDS: ASPIRIN 81MG CHEW TABLET PO SCH (08:51)
[2023-08-11] MEDS: APIXABAN 5 MG TAB (ELIQUIS) PO SCH ×2 (08:52→20:28)
[2023-08-11] MEDS: CitaloPRAM (CeleXA) 10 MG TABLET PO SCH (08:52)
[2023-08-11] MEDS: FUROSEMIDE 20 MG TAB PO SCH (09:54)
[2023-08-11] MEDS: ROSUVASTATIN 10 MG TAB (CRESTOR) PO SCH (20:26)
[2023-08-12 05:00] VITALS: BP 130/57; TEMP 97.9; O2SAT 95
[2023-08-12] MEDS: PERCOCET 5MG/325MG TAB PO PRN (09:17)
[2023-08-12] MEDS: risperiDONE 0.5 MG TAB PO SCH (09:18)
[2023-08-12] MEDS: FUROSEMIDE 20 MG TAB PO SCH (09:19)
[2023-08-12] MEDS: CitaloPRAM (CeleXA) 10 MG TABLET PO SCH (09:20)
[2023-08-12] MEDS: METOPROLOL TART 25 MG TABLET PO SCH ×2 (09:20→20:38)
[2023-08-12] MEDS: APIXABAN 5 MG TAB (ELIQUIS) PO SCH ×2 (09:20→20:36)
[2023-08-12] MEDS: GABAPENTIN 100 MG CAP PO SCH ×3 (09:20→20:36)
[2023-08-12] MEDS: ASPIRIN 81MG CHEW TABLET PO SCH (09:20)
[2023-08-12] MEDS: INSULIN LISPRO (NovoLOG) PER UNIT SC SCH ×4 (09:21→20:31)
[2023-08-12] MEDS: LEVEMIR (INSULIN DETEMIR) 1 UNITS/0.01ML SC SCH ×2 (09:21→20:35)
[2023-08-12] MEDS: NYSTATIN 100,000 UNITS/GM TOPICAL PWD 15GM TOP SCH ×2 (09:21→20:38)
[2023-08-12] MEDS: ROSUVASTATIN 10 MG TAB (CRESTOR) PO SCH (20:36)
[2023-08-13 05:30] VITALS: BP 129/60; TEMP 97.3; O2SAT 92
[2023-08-13] MEDS: LEVEMIR (INSULIN DETEMIR) 1 UNITS/0.01ML SC SCH ×2 (09:00→20:11)
[2023-08-13] MEDS: ASPIRIN 81MG CHEW TABLET PO SCH (09:36)
[2023-08-13] MEDS: APIXABAN 5 MG TAB (ELIQUIS) PO SCH ×2 (09:36→20:11)
[2023-08-13] MEDS: GABAPENTIN 100 MG CAP PO SCH ×3 (09:36→20:11)
[2023-08-13] MEDS: FUROSEMIDE 20 MG TAB PO SCH (09:36)
[2023-08-13] MEDS: risperiDONE 0.5 MG TAB PO SCH (09:36)
[2023-08-13] MEDS: METOPROLOL TART 25 MG TABLET PO SCH ×3 (09:37→20:14)
[2023-08-13] MEDS: CitaloPRAM (CeleXA) 10 MG TABLET PO SCH (09:37)
[2023-08-13] MEDS: INSULIN LISPRO (NovoLOG) PER UNIT SC SCH ×4 (09:38→20:47)
[2023-08-13] MEDS: NYSTATIN 100,000 UNITS/GM TOPICAL PWD 15GM TOP SCH ×2 (09:42→21:36)
[2023-08-13] MEDS ORDERED: LEVEMIR (INSULIN DETEMIR) 1 UNITS/0.01ML SC ONE (10:30)
[2023-08-13] MEDS: PERCOCET 5MG/325MG TAB PO PRN (12:49)
[2023-08-13] MEDS: ROSUVASTATIN 10 MG TAB (CRESTOR) PO SCH (20:11)
[2023-08-14 06:00] VITALS: BP 109/49; TEMP 97.7; O2SAT 94
[2023-08-14 06:33] LABS: BLOOD UREA NITROGEN 29 MG/DL (9-23); CALCIUM LEVEL 8.6 MG/DL (8.3-10.6); CARBON DIOXIDE LEVEL 30 MMOL/L (20-31); CHLORIDE LEVEL 103 MMOL/L (98-107); CREATININE FOR GFR 0.87 MG/DL (0.55-1.30); GLOMERULAR FILTRATION RATE > 60.0 (>32); GLUCOSE, FASTING 142 MG/DL (74-106); POTASSIUM SERUM 4.7 MMOL/L (3.5-5.1); SODIUM LEVEL 137 MMOL/L (136-145)
[2023-08-14] MEDS: GABAPENTIN 100 MG CAP PO SCH ×3 (08:57→21:40)
[2023-08-14] MEDS: risperiDONE 0.5 MG TAB PO SCH (08:57)
[2023-08-14] MEDS: CitaloPRAM (CeleXA) 10 MG TABLET PO SCH (08:57)
[2023-08-14] MEDS: FUROSEMIDE 20 MG TAB PO SCH (08:57)
[2023-08-14] MEDS: APIXABAN 5 MG TAB (ELIQUIS) PO SCH ×2 (08:57→21:40)
[2023-08-14] MEDS: ASPIRIN 81MG CHEW TABLET PO SCH (08:57)
[2023-08-14] MEDS: INSULIN LISPRO (NovoLOG) PER UNIT SC SCH ×4 (08:58→21:00)
[2023-08-14] MEDS: METOPROLOL TART 25 MG TABLET PO SCH ×2 (08:58→21:00)
[2023-08-14] MEDS: LEVEMIR (INSULIN DETEMIR) 1 UNITS/0.01ML SC SCH ×2 (08:58→21:43)
[2023-08-14] MEDS: NYSTATIN 100,000 UNITS/GM TOPICAL PWD 15GM TOP SCH ×2 (08:59→21:44)
[2023-08-14] MEDS: PERCOCET 5MG/325MG TAB PO PRN ×2 (14:39→21:45)
[2023-08-14] MEDS: ROSUVASTATIN 10 MG TAB (CRESTOR) PO SCH (21:43)
[2023-08-14 21:45] VITALS: BP 106/50
[2023-08-15 06:00] VITALS: BP 128/46; TEMP 97.2; O2SAT 96
[2023-08-15] MEDS: LEVEMIR (INSULIN DETEMIR) 1 UNITS/0.01ML SC SCH ×2 (07:59→21:10)
[2023-08-15] MEDS: risperiDONE 0.5 MG TAB PO SCH (08:00)
[2023-08-15] MEDS: INSULIN LISPRO (NovoLOG) PER UNIT SC SCH ×4 (08:00→21:00)
[2023-08-15] MEDS: ASPIRIN 81MG CHEW TABLET PO SCH (08:00)
[2023-08-15] MEDS: CitaloPRAM (CeleXA) 10 MG TABLET PO SCH (08:02)
[2023-08-15] MEDS: APIXABAN 5 MG TAB (ELIQUIS) PO SCH ×2 (08:02→21:10)
[2023-08-15] MEDS: METOPROLOL TART 25 MG TABLET PO SCH ×2 (08:02→21:09)
[2023-08-15] MEDS: FUROSEMIDE 20 MG TAB PO SCH (08:02)
[2023-08-15] MEDS: GABAPENTIN 100 MG CAP PO SCH ×3 (08:02→21:10)
[2023-08-15] MEDS: NYSTATIN 100,000 UNITS/GM TOPICAL PWD 15GM TOP SCH ×2 (08:03→21:10)
[2023-08-15] MEDS ORDERED: GABA-1171 PO (10:12)
[2023-08-15] MEDS ORDERED: METO1TAB87 PO (10:12)
[2023-08-15] MEDS ORDERED: INSUHUMDS SC (10:12)
[2023-08-15] MEDS ORDERED: PERCOCET PO (10:12)
[2023-08-15] MEDS ORDERED: INSUDET SC (10:12)
[2023-08-15 13:16] LABS: BASO # 0.1 10^3/uL (0.0-0.2); EOS # 0.7 10^3/uL (0.0-0.5); EOS % 8.4 % (0.0-3.0); HEMATOCRIT 33.5 % (36.0-47.0); HEMOGLOBIN 10.3 g/dl (12.0-15.5); LYMPH # 1.8 10^3/uL (1.5-5.0); LYMPH % 22.1 % (24.0-44.0); MEAN CORPUSCULAR HEMOGLOBIN 27.3 pg (27.0-33.0); MEAN CORPUSCULAR HGB CONC 30.7 g/dl (32.0-36.5); MEAN CORPUSCULAR VOLUME 88.9 fl (80.0-96.0); MONO # 0.8 10^3/uL (0.0-0.8); MONO % 9.7 % (2.0-8.0); NEUTROPHILS # 4.6 10^3/uL (1.5-8.5); NEUTROPHILS % 57.9 % (36.0-66.0); PLATELET COUNT, AUTOMATED 353 10^3/uL (150-450); RED BLOOD COUNT 3.77 10^6/uL (4.00-5.40)
[2023-08-15 13:54] LABS: BLOOD UREA NITROGEN 28 MG/DL (9-23); CALCIUM LEVEL 8.6 MG/DL (8.3-10.6); CARBON DIOXIDE LEVEL 30 MMOL/L (20-31); CHLORIDE LEVEL 104 MMOL/L (98-107); CREATININE FOR GFR 0.79 MG/DL (0.55-1.30); GLOMERULAR FILTRATION RATE > 60.0 (>32); GLUCOSE, FASTING 167 MG/DL (74-106); POTASSIUM SERUM 4.5 MMOL/L (3.5-5.1); SODIUM LEVEL 139 MMOL/L (136-145)
[2023-08-15] MEDS: ROSUVASTATIN 10 MG TAB (CRESTOR) PO SCH (21:10)
[2023-08-16 06:00] VITALS: BP 130/56; TEMP 98.1; O2SAT 97
[2023-08-16] MEDS: CitaloPRAM (CeleXA) 10 MG TABLET PO SCH (08:31)
[2023-08-16 08:32] VITALS: BP 130/56
[2023-08-16] MEDS: METOPROLOL TART 25 MG TABLET PO SCH (08:32)
[2023-08-16] MEDS: GABAPENTIN 100 MG CAP PO SCH (08:32)
[2023-08-16] MEDS: FUROSEMIDE 20 MG TAB PO SCH (08:32)
[2023-08-16] MEDS: ASPIRIN 81MG CHEW TABLET PO SCH (08:32)
[2023-08-16] MEDS: APIXABAN 5 MG TAB (ELIQUIS) PO SCH (08:32)
[2023-08-16] MEDS: LEVEMIR (INSULIN DETEMIR) 1 UNITS/0.01ML SC SCH (08:33)
[2023-08-16] MEDS: INSULIN LISPRO (NovoLOG) PER UNIT SC SCH (08:33)
[2023-08-16] MEDS: NYSTATIN 100,000 UNITS/GM TOPICAL PWD 15GM TOP SCH (08:34)
[2023-08-16] MEDS: risperiDONE 0.5 MG TAB PO SCH (08:37)
== END 2023-08-16 10:15 | DRG 536 ==
LOC: EDBD 20:13 → M ED 20:13 → M ED INP 08-03 03:50 → ENRESERV 08-03 04:21 → M PCU 08-03 05:07 → M MSPAV 08-04 18:18
PROVIDERS: ADMIT Family Medicine; ATTEND Internal Medicine
DX: S72.112A Displaced fracture of greater trochanter of left femur, initial encounter for closed fracture (principal); I16.9 Hypertensive crisis, unspecified; N39.0 Urinary tract infection, site not specified; S42.252A Displaced fracture of greater tuberosity of left humerus, initial encounter for closed fracture; S42.262A Displaced fracture of lesser tuberosity of left humerus, initial encounter for closed fracture; I50.32 Chronic diastolic (congestive) heart failure; E87.1 Hypo-osmolality and hyponatremia; H91.93 Unspecified hearing loss, bilateral; E11.65 Type 2 diabetes mellitus with hyperglycemia; I25.10 Atherosclerotic heart disease of native coronary artery without angina pectoris; E78.5 Hyperlipidemia, unspecified; G47.33 Obstructive sleep apnea (adult) (pediatric); K21.9 Gastro-esophageal reflux disease without esophagitis; M81.0 Age-related osteoporosis without current pathological fracture; K57.90 Diverticulosis of intestine, part unspecified, without perforation or abscess without bleeding; W18.30XA Fall on same level, unspecified, initial encounter; I11.0 Hypertensive heart disease with heart failure; Y92.008 Other place in unspecified non-institutional (private) residence as the place of occurrence of the external cause; Z95.1 Presence of aortocoronary bypass graft; E66.01 Morbid (severe) obesity due to excess calories; Z85.44 Personal history of malignant neoplasm of other female genital organs; E11.42 Type 2 diabetes mellitus with diabetic polyneuropathy; E87.6 Hypokalemia; J45.909 Unspecified asthma, uncomplicated; F41.9 Anxiety disorder, unspecified; F32.A Depression, unspecified; H91.10 Presbycusis, unspecified ear; Z79.01 Long term (current) use of anticoagulants; Z79.82 Long term (current) use of aspirin; Z79.4 Long term (current) use of insulin; Z96.651 Presence of right artificial knee joint; Z79.899 Other long term (current) drug therapy; Z88.1 Allergy status to other antibiotic agents; Z91.018 Allergy to other foods; Z91.048 Other nonmedicinal substance allergy status; Z86.711 Personal history of pulmonary embolism

== ENCOUNTER → 2023-09-18 | Outpatient (CLI) | payer MEDICARE, OTHER ==
[~2023-09-18] MED LIST changes: +AMLO2.5T3 PO; +CITA10TA7 PO; +GABA-1171 PO; +INSUDET SC; +INSUHUMDS SC; +MECL25CH45 PO; +METO1TAB87 PO; +PERCOCET PO; +RAMI1CAP22 PO; +RISP0.253 PO
== END ==
LOC: M SOG 08:14
PROVIDERS: ATTEND Physician Assistant
DX: M25.512 Pain in left shoulder (principal); M25.552 Pain in left hip; M16.9 Osteoarthritis of hip, unspecified

== ENCOUNTER → 2023-10-30 | Outpatient (CLI) | payer MEDICARE, OTHER | LOC: M SOG 07:54 | PROVIDERS: ATTEND Physician Assistant | DX: Z53.9 Procedure and treatment not carried out, unspecified reason (principal) ==

== ENCOUNTER → 2023-11-06 | Outpatient (CLI) | payer MEDICARE, OTHER | LOC: M SOG 07:59 | PROVIDERS: ATTEND Physician Assistant | DX: S42.212D Unspecified displaced fracture of surgical neck of left humerus, subsequent encounter for fracture with routine healing (principal); M16.12 Unilateral primary osteoarthritis, left hip; Y93.9 Activity, unspecified; Y92.9 Unspecified place or not applicable ==

== ENCOUNTER → 2023-12-18 | Outpatient (CLI) | payer MEDICARE, OTHER ==
[~2023-12-18] MED LIST changes: -RAMI1CAP22 PO; +RAMI2.5C42 PO
== END ==
LOC: M SOG 13:14
PROVIDERS: ATTEND Physician Assistant
DX: S42.202D Unspecified fracture of upper end of left humerus, subsequent encounter for fracture with routine healing (principal); X58.XXXD Exposure to other specified factors, subsequent encounter; Y92.89 Other specified places as the place of occurrence of the external cause

== ENCOUNTER → 2024-01-08 | Outpatient (CLI) | payer MEDICARE, OTHER | LOC: M WHC 10:26 | PROVIDERS: ATTEND Physician Assistant | DX: M85.89 Other specified disorders of bone density and structure, multiple sites (principal) ==

== ENCOUNTER 2024-06-24 08:22 | Emergency (ER) | payer MEDICARE, OTHER ==
[~2024-06-24] VITALS: Ht 160 cm; Wt 110.1 kg
[2024-06-24] MEDS: DEXTROSE 50% 50ML SYRINGE IV STA (09:12)
[2024-06-24 09:17] LABS: BASO # 0.1 10^3/uL (0.0-0.2); BASO % 0.9 % (0.0-1.0); EOS # 0.4 10^3/uL (0.0-0.5); EOS % 5.4 % (0.0-3.0); HEMATOCRIT 32.5 % (36.0-47.0); HEMOGLOBIN 9.8 g/dl (12.0-15.5); LYMPH # 1.6 10^3/uL (1.5-5.0); LYMPH % 20.5 % (24.0-44.0); MEAN CORPUSCULAR HEMOGLOBIN 27.3 pg (27.0-33.0); MEAN CORPUSCULAR HGB CONC 30.2 g/dl (32.0-36.5); MEAN CORPUSCULAR VOLUME 90.5 fl (80.0-96.0); MONO # 0.8 10^3/uL (0.0-0.8); MONO % 10.6 % (2.0-8.0); NEUTROPHILS # 4.7 10^3/uL (1.5-8.5); PLATELET COUNT, AUTOMATED 224 10^3/uL (150-450); RED BLOOD COUNT 3.59 10^6/uL (4.00-5.40); WHITE BLOOD COUNT 7.7 10^3/uL (4.0-10.0)
[2024-06-24 09:27] LABS: INR 1.16; PARTIAL THROMBOPLASTIN TIME 28.6 SECONDS (24.8-34.2); PROTHROMBIN TIME 15.1 SECONDS (12.5-14.5)
[2024-06-24 09:30] LABS: BILIRUBIN,DIRECT 0.1 MG/DL (<0.4); BILIRUBIN,TOTAL 0.4 MG/DL (0.3-1.2); CALCIUM LEVEL 9.3 MG/DL (8.3-10.6); CREATININE FOR GFR 1.04 MG/DL (0.55-1.30); GLOMERULAR FILTRATION RATE 53.9 (>32); POTASSIUM SERUM 4.4 MMOL/L (3.5-5.1); TOTAL PROTEIN 6.3 G/DL (5.7-8.2)
[2024-06-24] MEDS ORDERED: ISOVUE-370 76% 100ML VIAL As Ordered ONE (09:30)
[2024-06-24] MEDS ORDERED: METO1TAB87 PO (09:40)
[2024-06-24] MEDS ORDERED: METO37.5 PO (09:40)
[2024-06-24] MEDS ORDERED: AMLO25TA PO (09:43)
[2024-06-24] MEDS ORDERED: TREL1AER PO (09:47)
[2024-06-24] MEDS: ONDANSETRON 4MG 2ML VIAL IV ONE (12:05)
[2024-06-24] MEDS: D5W/0.45% SODIUM CHLORIDE 1,000 ML IV ONE (12:05)
[2024-06-24] MEDS: MORPHINE 2 MG/ML 1ML VIAL IV ONE (12:08)
[2024-06-24 12:52] VITALS: O2SAT 97
[2024-06-24 13:01] VITALS: BP 129/63; TEMP 97.1
[2024-06-24] MEDS ORDERED: LANTINJ4 SC (13:23)
[2024-06-24] MEDS ORDERED: ROSU20TA86 PO (13:23)
[2024-06-24] MEDS ORDERED: GABA-1171 PO (13:23)
[2024-06-24] MEDS ORDERED: HOME MED LIST COMPLETE! XX SCH (13:25)
== END 2024-06-24 13:22 | disposition short-term general hospital (02) ==
LOC: M ED 08:22 → EDBD 08:22 → M ED 13:22
DX: S06.0X0A Concussion without loss of consciousness, initial encounter (principal); S30.1XXA Contusion of abdominal wall, initial encounter; S70.01XA Contusion of right hip, initial encounter; S22.088A Other fracture of T11-T12 vertebra, initial encounter for closed fracture; Y92.019 Unspecified place in single-family (private) house as the place of occurrence of the external cause; Y93.9 Activity, unspecified; Y99.9 Unspecified external cause status; W06.XXXA Fall from bed, initial encounter; I44.0 Atrioventricular block, first degree; E10.9 Type 1 diabetes mellitus without complications; I10 Essential (primary) hypertension; E78.00 Pure hypercholesterolemia, unspecified; Z88.1 Allergy status to other antibiotic agents; Z91.018 Allergy to other foods; Z79.51 Long term (current) use of inhaled steroids; Z79.01 Long term (current) use of anticoagulants; Z79.4 Long term (current) use of insulin; Z79.899 Other long term (current) drug therapy
CPT/HCPCS: 70450; 71045; 72125; 72170; 73502; 73552; 73700; 74177; 80047; 80048; 80076; 82150; 83690; 85025; 85610; 85730; 86850; 86900; 86901; 93005; 93041; 94760; 96365; 96375; 99285; J2405; Q9967

== ENCOUNTER 2024-08-13 15:18 | Inpatient (IN) | payer MEDICARE, OTHER ==
[~2024-08-13] VITALS: Ht 160 cm; Wt 99.0 kg
[~2024-08-13 15:18] MED LIST changes: +LANTINJ4 SC; +METO37.5 PO; +ROSU20TA86 PO; +TREL1AER PO
[2024-08-13 16:22] LABS: VENOUS BASE EXCESS -3.7 (-2.0-2.0); VENOUS HCO3 23.4 MMOL/L (23.0-27.0); VENOUS O2 SATURATION 63.9 % (60.0-80.0); VENOUS PARTIAL PRESSURE CO2 51.9 mmHg (38.0-50.0); VENOUS PARTIAL PRESSURE O2 36.8 mmHg (30.0-50.0); VENOUS PH 7.272 UNITS (7.330-7.430); VENOUS STANDARD HCO3 20.8 MMOL/L
[2024-08-13 16:33] LABS: HEMATOCRIT 31.7 % (36.0-47.0); HEMOGLOBIN 8.9 g/dl (12.0-15.5); MEAN CORPUSCULAR HEMOGLOBIN 25.7 pg (27.0-33.0); MEAN CORPUSCULAR HGB CONC 28.1 g/dl (32.0-36.5); MEAN CORPUSCULAR VOLUME 91.6 fl (80.0-96.0); PLATELET COUNT, AUTOMATED 441 10^3/uL (150-450); RED BLOOD COUNT 3.46 10^6/uL (4.00-5.40); WHITE BLOOD COUNT 6.3 10^3/uL (4.0-10.0)
[2024-08-13 16:50] LABS: ALBUMIN 2.8 G/DL (3.2-5.2); BILIRUBIN,DIRECT 0.1 MG/DL (<0.4); BILIRUBIN,TOTAL 0.3 MG/DL (0.3-1.2); CALCIUM LEVEL 8.9 MG/DL (8.3-10.6); CREATININE FOR GFR 1.14 MG/DL (0.55-1.30); GLOMERULAR FILTRATION RATE 48.5 (>32); POTASSIUM SERUM 5.6 MMOL/L (3.5-5.1); TOTAL PROTEIN 6.3 G/DL (5.7-8.2)
[2024-08-13 16:52] LABS: THYROID STIMULATING HORMONE 3.175 uIU/ML (0.55-4.78)
[2024-08-13 16:56] LABS: ANISOCYTOSIS 1+; ATYPICAL LYMPH 9 % (0-5); BASOPHILS 1 % (0-1); EOSINOPHILS 3 % (0-3); LYMPHOCYTES 12 % (16-44); METAMYELOCYTES 1 % (0-0); MONOCYTES 6 % (0-5); NEUTROPHILS 65 % (28-66); PLATELET ESTIMATE INCREASED (NORMAL)
[2024-08-13 16:58] LABS: OVALOCYTES 2+; SCHISTOCYTES 1+
[2024-08-13 17:20] LABS: KETONE, URINE AUTO RFX NEGATIVE (NEGATIVE); LEUKOCYTE ESTERASE UR AUTO RFX 2+ (NEGATIVE); MUCUS, URINE RFX SMALL (NEGATIVE); NITRITE, URINE AUTO RFX NEGATIVE (NEGATIVE); RBC, URINE AUTO RFX 1 /HPF (0-3); SQUAM EPITHELIAL CELL UR AURFX 2 /HPF (0-6); WBC, URINE AUTO RFX 45 /HPF (0-3)
[2024-08-13] MEDS ORDERED: NOVOINJ3 INJ (17:29)
[2024-08-13] MEDS ORDERED: HOME MED LIST COMPLETE! XX SCH (17:30)
[2024-08-13] MEDS: FUROSEMIDE 40MG/4ML VIAL IV ONE (17:38)
[2024-08-13 18:35] LABS: C REACTIVE PROTEIN QUANTITATIV 3.91 MG/DL (<1.0); PERCENT SATURATION 10.5 % (13.2-45.0)
[2024-08-13 18:37] LABS: FERRITIN 84.9 NG/ML (7.3-270.7)
[2024-08-13] MEDS: CALCIUM GLUCONATE 1,000 MG in DEXTROSE 5% (D5W) MINI-BAG PLU 100 ML IV ONE (18:39)
[2024-08-13] MEDS: PATIROMER SORBITEX CALCIUM 8.4 GM POWDER PACKET (VELTASSA) PO ONE (18:40)
[2024-08-13] MEDS ORDERED: ALBUTEROL 90 MCG/ACT 8GM HFA INHALER INH PRN (19:25)
[2024-08-13] MEDS ORDERED: GLUCOSE 4 GM CHEW PO PRN (19:40)
[2024-08-13] MEDS ORDERED: DEXTROSE 50% 50ML SYRINGE IV PRN (19:40)
[2024-08-13] MEDS ORDERED: GLUCAGON INJ 1MG VIAL SC PRN (19:40)
[2024-08-13] MEDS: FUROSEMIDE injection 100 MG, VIAL 2 BAG 13MM ADAPTER 1 EACH in D5W 100 ML IV SCH (19:43)
[2024-08-13 19:59] LABS: D-DIMER QUANT 1.11 ug/mL (<0.5); INR 1.29; PARTIAL THROMBOPLASTIN TIME 32.6 SECONDS (24.8-34.2); PROTHROMBIN TIME 16.3 SECONDS (12.5-14.5)
[2024-08-13 21:00] VITALS: BP 117/55
[2024-08-13] MEDS: METOPROLOL TART 25 MG TABLET PO SCH (21:00)
[2024-08-13] MEDS: INSULIN LISPRO (NovoLOG) PER UNIT SC SCH (21:00)
[2024-08-13] MEDS: ROSUVASTATIN 10 MG TAB (CRESTOR) PO SCH (21:41)
[2024-08-13] MEDS: APIXABAN 5 MG TAB (ELIQUIS) PO SCH (21:42)
[2024-08-13] MEDS: GABAPENTIN 100 MG CAP PO SCH (21:42)
[2024-08-13] MEDS: LEVEMIR (INSULIN DETEMIR) 1 UNITS/0.01ML SC SCH (21:43)
[2024-08-13 23:55] VITALS: BP 128/60; TEMP 97.1; O2SAT 92
[2024-08-14 00:45] LABS: CK-MB VALUE MASS < 1.0 NG/ML (<3.6)
[2024-08-14 00:46] LABS: CALCIUM LEVEL 9.2 MG/DL (8.3-10.6); CREATININE FOR GFR 1.18 MG/DL (0.55-1.30); GLOMERULAR FILTRATION RATE 46.6 (>32); POTASSIUM SERUM 5.3 MMOL/L (3.5-5.1)
[2024-08-14 00:47] LABS: CPK CREATINE PHOSPHOKINASE 28 U/L (34-145); MB/CK RELATIVE INDEX 3.57 (< OR =4)
[2024-08-14] MEDS: CALCIUM GLUCONATE 1,000 MG in DEXTROSE 5% (D5W) MINI-BAG PLU 100 ML IV ONE (01:33)
[2024-08-14] MEDS: REMDESIVIR 200 MG in NS 250 ML IV ONE (02:03)
[2024-08-14] MEDS: PATIROMER SORBITEX CALCIUM 8.4 GM POWDER PACKET (VELTASSA) PO ONE ×2 (02:06→12:35)
[2024-08-14 03:49] VITALS: BP 133/57; TEMP 97.2; O2SAT 92
[2024-08-14 06:47] LABS: BASO # 0.1 10^3/uL (0.0-0.2); BASO % 0.9 % (0.0-1.0); EOS # 0.3 10^3/uL (0.0-0.5); EOS % 5.1 % (0.0-3.0); HEMATOCRIT 28.8 % (36.0-47.0); HEMOGLOBIN 8.6 g/dl (12.0-15.5); LYMPH # 1.7 10^3/uL (1.5-5.0); LYMPH % 28.9 % (24.0-44.0); MEAN CORPUSCULAR HEMOGLOBIN 26.2 pg (27.0-33.0); MEAN CORPUSCULAR HGB CONC 29.9 g/dl (32.0-36.5); MEAN CORPUSCULAR VOLUME 87.8 fl (80.0-96.0); MONO # 0.8 10^3/uL (0.0-0.8); MONO % 13.3 % (2.0-8.0); NEUTROPHILS # 2.9 10^3/uL (1.5-8.5); NEUTROPHILS % 51.3 % (36.0-66.0); PLATELET COUNT, AUTOMATED 409 10^3/uL (150-450); RED BLOOD COUNT 3.28 10^6/uL (4.00-5.40); WHITE BLOOD COUNT 5.7 10^3/uL (4.0-10.0)
[2024-08-14] MEDS: metOLazone 5 MG TAB PO ONE ×2 (06:57→20:13)
[2024-08-14 06:59] LABS: HEMOGLOBIN A1c 7.1 % (4.0-6.0)
[2024-08-14 07:01] LABS: CK-MB VALUE MASS < 1.0 NG/ML (<3.6)
[2024-08-14 07:02] LABS: CALCIUM LEVEL 9.7 MG/DL (8.3-10.6); CHOLESTEROL RISK RATIO 3.59 (<5); CPK CREATINE PHOSPHOKINASE 24 U/L (34-145); CREATININE FOR GFR 1.24 MG/DL (0.55-1.30); HDL CHOLESTEROL 29.2 MG/DL (>40); LDL CHOLESTEROL 53.2 MG/DL (<100); MB/CK RELATIVE INDEX 4.16 (< OR =4); NON-HDL-C 75.8 MG/DL; POTASSIUM SERUM 5.1 MMOL/L (3.5-5.1)
[2024-08-14 07:06] LABS: THYROID STIMULATING HORMONE 3.126 uIU/ML (0.55-4.78)
[2024-08-14 07:36] LABS: FREE THYROXINE INDEX 3.3 % (1.3-4.8); THYROXINE (T4) 7.4 UG/DL (4.5-10.9)
[2024-08-14 08:16] VITALS: BP 147/65; TEMP 97.2; O2SAT 99
[2024-08-14] MEDS: INSULIN LISPRO (NovoLOG) PER UNIT SC SCH (08:31)
[2024-08-14] MEDS: ASPIRIN 81MG CHEW TABLET PO SCH (08:32)
[2024-08-14] MEDS: MECLIZINE 25 MG TABLET PO SCH (08:32)
[2024-08-14] MEDS: CitaloPRAM (CeleXA) 10 MG TABLET PO SCH (08:32)
[2024-08-14] MEDS: FUROSEMIDE 40MG/4ML VIAL IV ONE ×3 (08:34→20:47)
[2024-08-14] MEDS: risperiDONE 0.5 MG TAB PO SCH (08:34)
[2024-08-14] MEDS: COMBIVENT RESPIMAT 100-20MCG INHALER 4GM INH SCH (09:06)
[2024-08-14] MEDS ORDERED: PATIROMER SORBITEX CALCIUM 8.4 GM POWDER PACKET (VELTASSA) PO SCH (12:00)
[2024-08-14 12:22] VITALS: BP 122/64; TEMP 97; O2SAT 92
[2024-08-14 15:50] VITALS: TEMP 97
[2024-08-14 17:07] LABS: CALCIUM LEVEL 9.9 MG/DL (8.3-10.6); CREATININE FOR GFR 1.3 MG/DL (0.55-1.30); GLOMERULAR FILTRATION RATE 41.6 (>32)
[2024-08-14 19:20] VITALS: BP 134/60; TEMP 97.2; O2SAT 93
[2024-08-14] MEDS ORDERED: REMDESIVIR 100 MG in NS 250 ML IV SCH (23:00)
[2024-08-14] MEDS: REMDESIVIR 100 MG in NS 100 ML IV SCH (23:26)
[2024-08-15 03:18] VITALS: BP 125/55; TEMP 97.1; O2SAT 95
[2024-08-15 06:02] LABS: BASO # 0.1 10^3/uL (0.0-0.2); BASO % 0.8 % (0.0-1.0); EOS # 0.3 10^3/uL (0.0-0.5); EOS % 4.5 % (0.0-3.0); HEMATOCRIT 31.1 % (36.0-47.0); HEMOGLOBIN 9.4 g/dl (12.0-15.5); LYMPH # 1.7 10^3/uL (1.5-5.0); LYMPH % 23.8 % (24.0-44.0); MEAN CORPUSCULAR HEMOGLOBIN 26.5 pg (27.0-33.0); MEAN CORPUSCULAR HGB CONC 30.2 g/dl (32.0-36.5); MEAN CORPUSCULAR VOLUME 87.6 fl (80.0-96.0); MONO % 14.4 % (2.0-8.0); NEUTROPHILS # 3.9 10^3/uL (1.5-8.5); NEUTROPHILS % 55.5 % (36.0-66.0); PLATELET COUNT, AUTOMATED 442 10^3/uL (150-450); RED BLOOD COUNT 3.55 10^6/uL (4.00-5.40); WHITE BLOOD COUNT 7.1 10^3/uL (4.0-10.0)
[2024-08-15 06:25] LABS: CALCIUM LEVEL 9.6 MG/DL (8.3-10.6); CREATININE FOR GFR 1.46 MG/DL (0.55-1.30); GLOMERULAR FILTRATION RATE 36.4 (>32); POTASSIUM SERUM 4.9 MMOL/L (3.5-5.1)
[2024-08-15 06:56] VITALS: BP 106/54; TEMP 98.1; O2SAT 94
[2024-08-15 11:41] VITALS: BP 146/65; TEMP 97.3; O2SAT 97
[2024-08-15 15:10] VITALS: BP 72/56; TEMP 96.6; O2SAT 98
[2024-08-15] MEDS ORDERED: NS 500 ML IV ONE (15:20)
[2024-08-15] MEDS ORDERED: MIDODRINE 5 MG TAB PO ONE (15:20)
[2024-08-15] MEDS: MIDODRINE 5 MG TAB PO ONE (15:26)
[2024-08-15] MEDS: NS 500 ML IV ONE (15:26)
[2024-08-15 16:41] VITALS: BP 108/58
[2024-08-15 19:23] VITALS: BP 112/60; TEMP 97; O2SAT 97
[2024-08-15] MEDS: ACETAMINOPHEN 325 MG TAB PO PRN (22:53)
[2024-08-16 03:06] VITALS: BP 102/50; TEMP 97.8; O2SAT 96
[2024-08-16 06:08] LABS: BASO # 0.1 10^3/uL (0.0-0.2); BASO % 1.3 % (0.0-1.0); EOS # 0.4 10^3/uL (0.0-0.5); HEMOGLOBIN 8.7 g/dl (12.0-15.5); LYMPH # 1.7 10^3/uL (1.5-5.0); LYMPH % 27.4 % (24.0-44.0); MEAN CORPUSCULAR HEMOGLOBIN 26.7 pg (27.0-33.0); MONO # 0.9 10^3/uL (0.0-0.8); MONO % 14.8 % (2.0-8.0); NEUTROPHILS # 3.1 10^3/uL (1.5-8.5); NEUTROPHILS % 49.5 % (36.0-66.0); PLATELET COUNT, AUTOMATED 421 10^3/uL (150-450); RED BLOOD COUNT 3.26 10^6/uL (4.00-5.40); WHITE BLOOD COUNT 6.2 10^3/uL (4.0-10.0)
[2024-08-16 06:21] LABS: CALCIUM LEVEL 8.7 MG/DL (8.3-10.6); CREATININE FOR GFR 1.6 MG/DL (0.55-1.30); GLOMERULAR FILTRATION RATE 32.8 (>32); POTASSIUM SERUM 4.2 MMOL/L (3.5-5.1)
[2024-08-16 08:28] VITALS: BP 105/47; TEMP 98.1; O2SAT 98
[2024-08-16 16:00] VITALS: BP 113/58; TEMP 98.2; O2SAT 97
[2024-08-16 19:12] VITALS: BP 133/50; TEMP 97.4; O2SAT 98
[2024-08-17 03:43] VITALS: BP 113/54; TEMP 97.2; O2SAT 97
[2024-08-17 08:36] LABS: BASO # 0.1 10^3/uL (0.0-0.2); BASO % 0.9 % (0.0-1.0); EOS # 0.4 10^3/uL (0.0-0.5); EOS % 6.1 % (0.0-3.0); HEMATOCRIT 29.8 % (36.0-47.0); HEMOGLOBIN 8.8 g/dl (12.0-15.5); LYMPH # 1.6 10^3/uL (1.5-5.0); MEAN CORPUSCULAR HEMOGLOBIN 26.6 pg (27.0-33.0); MEAN CORPUSCULAR HGB CONC 29.5 g/dl (32.0-36.5); MONO # 1.1 10^3/uL (0.0-0.8); MONO % 15.6 % (2.0-8.0); NEUTROPHILS # 3.8 10^3/uL (1.5-8.5); NEUTROPHILS % 54.5 % (36.0-66.0); PLATELET COUNT, AUTOMATED 426 10^3/uL (150-450); RED BLOOD COUNT 3.31 10^6/uL (4.00-5.40)
[2024-08-17 09:45] LABS: CALCIUM LEVEL 8.8 MG/DL (8.3-10.6); CREATININE FOR GFR 1.32 MG/DL (0.55-1.30); GLOMERULAR FILTRATION RATE 40.9 (>32); POTASSIUM SERUM 4.4 MMOL/L (3.5-5.1)
[2024-08-17] MEDS: ACETAMINOPHEN 500 MG TAB PO ONE (11:55)
[2024-08-17 12:00] VITALS: BP 113/56; TEMP 97.4; O2SAT 98
[2024-08-17 20:20] VITALS: BP 122/60; TEMP 98.1; O2SAT 98
[2024-08-17 21:30] VITALS: BP 105/61; TEMP 98.1; O2SAT 98
[2024-08-17 22:30] VITALS: BP 105/61; TEMP 98.1; O2SAT 98
[2024-08-18 04:02] VITALS: BP 115/50; TEMP 97.7; O2SAT 96
[2024-08-18 06:11] LABS: BASO # 0.1 10^3/uL (0.0-0.2); BASO % 0.9 % (0.0-1.0); EOS # 0.4 10^3/uL (0.0-0.5); EOS % 7.3 % (0.0-3.0); HEMATOCRIT 29.8 % (36.0-47.0); HEMOGLOBIN 8.7 g/dl (12.0-15.5); LYMPH # 1.4 10^3/uL (1.5-5.0); LYMPH % 23.8 % (24.0-44.0); MEAN CORPUSCULAR HEMOGLOBIN 25.9 pg (27.0-33.0); MEAN CORPUSCULAR HGB CONC 29.2 g/dl (32.0-36.5); MEAN CORPUSCULAR VOLUME 88.7 fl (80.0-96.0); MONO # 0.8 10^3/uL (0.0-0.8); MONO % 14.6 % (2.0-8.0); NEUTROPHILS % 52.4 % (36.0-66.0); PLATELET COUNT, AUTOMATED 386 10^3/uL (150-450); RED BLOOD COUNT 3.36 10^6/uL (4.00-5.40); WHITE BLOOD COUNT 5.8 10^3/uL (4.0-10.0)
[2024-08-18 06:32] LABS: CALCIUM LEVEL 8.8 MG/DL (8.3-10.6); CREATININE FOR GFR 1.15 MG/DL (0.55-1.30); POTASSIUM SERUM 4.3 MMOL/L (3.5-5.1)
[2024-08-18] MEDS ORDERED: PILL CUTTER 1 EACH XX ONE (09:00)
[2024-08-19 03:40] VITALS: BP 128/54; TEMP 97.2; O2SAT 97
[2024-08-19 06:38] LABS: BASO # 0.1 10^3/uL (0.0-0.2); EOS # 0.5 10^3/uL (0.0-0.5); EOS % 5.9 % (0.0-3.0); HEMATOCRIT 30.9 % (36.0-47.0); HEMOGLOBIN 8.9 g/dl (12.0-15.5); LYMPH # 1.7 10^3/uL (1.5-5.0); LYMPH % 21.8 % (24.0-44.0); MEAN CORPUSCULAR HEMOGLOBIN 25.7 pg (27.0-33.0); MEAN CORPUSCULAR HGB CONC 28.8 g/dl (32.0-36.5); MEAN CORPUSCULAR VOLUME 89.3 fl (80.0-96.0); MONO # 1.1 10^3/uL (0.0-0.8); MONO % 13.7 % (2.0-8.0); NEUTROPHILS # 4.5 10^3/uL (1.5-8.5); PLATELET COUNT, AUTOMATED 415 10^3/uL (150-450); RED BLOOD COUNT 3.46 10^6/uL (4.00-5.40)
[2024-08-19 06:53] LABS: CALCIUM LEVEL 8.9 MG/DL (8.3-10.6); CREATININE FOR GFR 1.06 MG/DL (0.55-1.30); GLOMERULAR FILTRATION RATE 52.7 (>32); POTASSIUM SERUM 4.8 MMOL/L (3.5-5.1)
[2024-08-19 09:23] VITALS: O2SAT 100
[2024-08-19 10:19] VITALS: O2SAT 88
[2024-08-19 12:22] VITALS: O2SAT 94
[2024-08-19 19:49] VITALS: BP 129/55; TEMP 97.5; O2SAT 97
[2024-08-20] VITALS (9 sets, daily range): BP systolic 112; BP diastolic 46; TEMP 97.7; O2SAT 87–97
[2024-08-20 05:49] LABS: BASO # 0.1 10^3/uL (0.0-0.2); EOS # 0.5 10^3/uL (0.0-0.5); EOS % 6.6 % (0.0-3.0); HEMATOCRIT 31.3 % (36.0-47.0); HEMOGLOBIN 9.3 g/dl (12.0-15.5); LYMPH # 1.6 10^3/uL (1.5-5.0); LYMPH % 22.4 % (24.0-44.0); MEAN CORPUSCULAR HEMOGLOBIN 26.5 pg (27.0-33.0); MEAN CORPUSCULAR HGB CONC 29.7 g/dl (32.0-36.5); MEAN CORPUSCULAR VOLUME 89.2 fl (80.0-96.0); MONO # 1.1 10^3/uL (0.0-0.8); MONO % 15.6 % (2.0-8.0); NEUTROPHILS # 3.8 10^3/uL (1.5-8.5); NEUTROPHILS % 53.8 % (36.0-66.0); PLATELET COUNT, AUTOMATED 403 10^3/uL (150-450); RED BLOOD COUNT 3.51 10^6/uL (4.00-5.40); WHITE BLOOD COUNT 7.1 10^3/uL (4.0-10.0)
[2024-08-20 06:24] LABS: CALCIUM LEVEL 8.8 MG/DL (8.3-10.6); GLOMERULAR FILTRATION RATE 56.4 (>32)
[2024-08-20] MEDS ORDERED: BISACODYL 10MG SUPP PR PRN (12:25)
[2024-08-20] MEDS ORDERED: FLEET ENEMA PR PRN (12:25)
[2024-08-20] MEDS ORDERED: MIRALAX *UNIT DOSE* 17GM PACKET PO PRN (12:25)
[2024-08-20 16:20] LABS: HEMATOCRIT 34.3 % (36.0-47.0); MEAN CORPUSCULAR HEMOGLOBIN 26.2 pg (27.0-33.0); MEAN CORPUSCULAR HGB CONC 29.2 g/dl (32.0-36.5); MEAN CORPUSCULAR VOLUME 89.8 fl (80.0-96.0); PLATELET COUNT, AUTOMATED 414 10^3/uL (150-450); RED BLOOD COUNT 3.82 10^6/uL (4.00-5.40); WHITE BLOOD COUNT 6.9 10^3/uL (4.0-10.0)
[2024-08-21] VITALS (7 sets, daily range): BP systolic 115–122; BP diastolic 57–60; TEMP 97.9–98.1; O2SAT 92–97
[2024-08-22 01:46] VITALS: O2SAT 82
[2024-08-22 01:47] VITALS: O2SAT 93
[2024-08-22 04:22] VITALS: BP 120/65; TEMP 97.7; O2SAT 94
[2024-08-22 21:00] VITALS: O2SAT 92
[2024-08-22 22:00] VITALS: O2SAT 80
[2024-08-22 22:05] VITALS: O2SAT 94
[2024-08-23 03:47] VITALS: BP 118/49; TEMP 97.3; O2SAT 95
[2024-08-24 04:00] VITALS: BP 120/62; TEMP 98.2; O2SAT 96
[2024-08-24 16:02] LABS: HEMATOCRIT 34.1 % (36.0-47.0); HEMOGLOBIN 10.1 g/dl (12.0-15.5); MEAN CORPUSCULAR HEMOGLOBIN 26.3 pg (27.0-33.0); MEAN CORPUSCULAR HGB CONC 29.6 g/dl (32.0-36.5); MEAN CORPUSCULAR VOLUME 88.8 fl (80.0-96.0); PLATELET COUNT, AUTOMATED 320 10^3/uL (150-450); RED BLOOD COUNT 3.84 10^6/uL (4.00-5.40); WHITE BLOOD COUNT 8.1 10^3/uL (4.0-10.0)
[2024-08-24 16:22] LABS: CALCIUM LEVEL 9.5 MG/DL (8.3-10.6); CREATININE FOR GFR 0.98 MG/DL (0.55-1.30); GLOMERULAR FILTRATION RATE 57.7 (>32); POTASSIUM SERUM 4.5 MMOL/L (3.5-5.1)
[2024-08-24] MEDS: SENOKOT S TAB PO PRN (22:00)
[2024-08-25 00:02] VITALS: O2SAT 86; O2SAT 93
[2024-08-25 00:03] VITALS: O2SAT 88
[2024-08-25 00:04] VITALS: O2SAT 94
[2024-08-25 03:09] VITALS: O2SAT 91
[2024-08-25 04:00] VITALS: BP 123/60; TEMP 97.9; O2SAT 94
[2024-08-25 04:14] VITALS: O2SAT 92
[2024-08-26] VITALS: O2SAT 93
[2024-08-26 04:52] VITALS: BP 117/54; TEMP 97.7; O2SAT 98
[2024-08-26 21:00] VITALS: O2SAT 94
[2024-08-27 04:27] VITALS: BP 124/72; TEMP 97.9; O2SAT 98
[2024-08-27 16:10] LABS: HEMATOCRIT 32.9 % (36.0-47.0); HEMOGLOBIN 9.7 g/dl (12.0-15.5); MEAN CORPUSCULAR HEMOGLOBIN 26.1 pg (27.0-33.0); MEAN CORPUSCULAR HGB CONC 29.5 g/dl (32.0-36.5); MEAN CORPUSCULAR VOLUME 88.4 fl (80.0-96.0); PLATELET COUNT, AUTOMATED 260 10^3/uL (150-450); RED BLOOD COUNT 3.72 10^6/uL (4.00-5.40); WHITE BLOOD COUNT 8.1 10^3/uL (4.0-10.0)
[2024-08-28 03:38] VITALS: O2SAT 91
[2024-08-28 03:50] VITALS: O2SAT 83
[2024-08-28 03:51] VITALS: O2SAT 94
[2024-08-28 04:59] VITALS: BP 106/44; TEMP 97.7; O2SAT 96
[2024-08-28] MEDS ORDERED: SENN-52 PO (10:49)
== END 2024-08-28 12:35 | DRG 177 ==
LOC: M ED 15:18 → M ED INP 18:00 → M PCU 20:38 → M MSPAV 08-17 21:25
PROVIDERS: ADMIT General Practice; ATTEND Student in an Organized Health Care Education/Training Program
PROC: B246ZZZ Ultrasonography of Right and Left Heart (ICD-10-PCS; principal; 2024-08-14)
DX: U07.1 COVID-19 (principal); I50.31 Acute diastolic (congestive) heart failure; J12.82 Pneumonia due to coronavirus disease 2019; J96.01 Acute respiratory failure with hypoxia; N17.9 Acute kidney failure, unspecified; T81.31XA Disruption of external operation (surgical) wound, not elsewhere classified, initial encounter; E87.5 Hyperkalemia; E11.22 Type 2 diabetes mellitus with diabetic chronic kidney disease; I25.10 Atherosclerotic heart disease of native coronary artery without angina pectoris; E78.5 Hyperlipidemia, unspecified; G47.33 Obstructive sleep apnea (adult) (pediatric); K21.9 Gastro-esophageal reflux disease without esophagitis; E87.6 Hypokalemia; H91.93 Unspecified hearing loss, bilateral; Y83.8 Other surgical procedures as the cause of abnormal reaction of the patient, or of later complication, without mention of misadventure at the time of the procedure; M81.0 Age-related osteoporosis without current pathological fracture; N18.9 Chronic kidney disease, unspecified; R53.1 Weakness; Z91.018 Allergy to other foods; R53.81 Other malaise; I48.91 Unspecified atrial fibrillation; Z97.4 Presence of external hearing-aid; Z79.01 Long term (current) use of anticoagulants; Z96.651 Presence of right artificial knee joint; Z79.82 Long term (current) use of aspirin; Z79.4 Long term (current) use of insulin; Z79.899 Other long term (current) drug therapy

== ENCOUNTER → 2024-08-31 | Outpatient (REF) | payer MEDICARE, OTHER ==
[~2024-08-31] MED LIST changes: +NOVOINJ3 INJ; +SENN-52 PO
== END ==
LOC: SKLAB4 13:49
PROVIDERS: ATTEND Internal Medicine
DX: R09.02 Hypoxemia (principal); J98.11 Atelectasis; Z98.890 Other specified postprocedural states; Z97.8 Presence of other specified devices

== ENCOUNTER → 2024-08-31 | Outpatient (REF) | payer MEDICARE, OTHER ==
[2024-08-31 12:19] LABS: BASO # 0.1 10^3/uL (0.0-0.2); BASO % 1.2 % (0.0-1.0); CALCIUM LEVEL 8.9 MG/DL (8.3-10.6); CREATININE FOR GFR 1.07 MG/DL (0.55-1.30); EOS # 0.6 10^3/uL (0.0-0.5); EOS % 9.7 % (0.0-3.0); GLOMERULAR FILTRATION RATE 52.1 (>32); HEMATOCRIT 32.4 % (36.0-47.0); HEMOGLOBIN 9.5 g/dl (12.0-15.5); LYMPH # 1.8 10^3/uL (1.5-5.0); MEAN CORPUSCULAR HEMOGLOBIN 26.3 pg (27.0-33.0); MEAN CORPUSCULAR HGB CONC 29.3 g/dl (32.0-36.5); MEAN CORPUSCULAR VOLUME 89.8 fl (80.0-96.0); MONO # 0.7 10^3/uL (0.0-0.8); MONO % 10.1 % (2.0-8.0); NEUTROPHILS # 3.4 10^3/uL (1.5-8.5); NEUTROPHILS % 51.4 % (36.0-66.0); PLATELET COUNT, AUTOMATED 247 10^3/uL (150-450); POTASSIUM SERUM 5.3 MMOL/L (3.5-5.1); RED BLOOD COUNT 3.61 10^6/uL (4.00-5.40); WHITE BLOOD COUNT 6.6 10^3/uL (4.0-10.0)
== END ==
LOC: SKLAB4 10:18
PROVIDERS: ATTEND Internal Medicine
DX: I13.0 Hypertensive heart and chronic kidney disease with heart failure and stage 1 through stage 4 chronic kidney disease, or unspecified chronic kidney disease (principal); I50.9 Heart failure, unspecified; N18.9 Chronic kidney disease, unspecified

== ENCOUNTER → 2024-09-07 | Outpatient (REF) | payer MEDICARE, OTHER ==
[2024-09-07 13:54] LABS: BASO # 0.1 10^3/uL (0.0-0.2); BASO % 0.7 % (0.0-1.0); EOS # 0.6 10^3/uL (0.0-0.5); EOS % 7.6 % (0.0-3.0); HEMATOCRIT 31.4 % (36.0-47.0); HEMOGLOBIN 9.2 g/dl (12.0-15.5); LYMPH # 1.4 10^3/uL (1.5-5.0); LYMPH % 18.5 % (24.0-44.0); MEAN CORPUSCULAR HEMOGLOBIN 26.4 pg (27.0-33.0); MEAN CORPUSCULAR HGB CONC 29.3 g/dl (32.0-36.5); MEAN CORPUSCULAR VOLUME 90.2 fl (80.0-96.0); MONO # 0.9 10^3/uL (0.0-0.8); MONO % 11.7 % (2.0-8.0); NEUTROPHILS # 4.6 10^3/uL (1.5-8.5); NEUTROPHILS % 61.2 % (36.0-66.0); PLATELET COUNT, AUTOMATED 249 10^3/uL (150-450); RED BLOOD COUNT 3.48 10^6/uL (4.00-5.40); WHITE BLOOD COUNT 7.5 10^3/uL (4.0-10.0)
[2024-09-07 14:27] LABS: CALCIUM LEVEL 8.8 MG/DL (8.3-10.6); CREATININE FOR GFR 1.12 MG/DL (0.55-1.30); GLOMERULAR FILTRATION RATE 49.5 (>32); POTASSIUM SERUM 5.6 MMOL/L (3.5-5.1)
== END ==
LOC: SKLAB4 08:10
PROVIDERS: ATTEND Internal Medicine
DX: I12.9 Hypertensive chronic kidney disease with stage 1 through stage 4 chronic kidney disease, or unspecified chronic kidney disease (principal); N18.9 Chronic kidney disease, unspecified

== ENCOUNTER → 2024-09-16 | Outpatient (REF) | payer MEDICARE, OTHER ==
[2024-09-16 10:10] LABS: CALCIUM LEVEL 8.7 MG/DL (8.3-10.6); CREATININE FOR GFR 1.06 MG/DL (0.55-1.30); GLOMERULAR FILTRATION RATE 52.7 (>32); POTASSIUM SERUM 5.1 MMOL/L (3.5-5.1)
[2024-09-16 12:03] LABS: BASO # 0.1 10^3/uL (0.0-0.2); EOS # 0.6 10^3/uL (0.0-0.5); EOS % 9.5 % (0.0-3.0); HEMATOCRIT 32.1 % (36.0-47.0); HEMOGLOBIN 9.5 g/dl (12.0-15.5); LYMPH # 1.7 10^3/uL (1.5-5.0); LYMPH % 27.2 % (24.0-44.0); MEAN CORPUSCULAR HEMOGLOBIN 25.9 pg (27.0-33.0); MEAN CORPUSCULAR HGB CONC 29.6 g/dl (32.0-36.5); MEAN CORPUSCULAR VOLUME 87.5 fl (80.0-96.0); MONO # 0.8 10^3/uL (0.0-0.8); MONO % 12.6 % (2.0-8.0); NEUTROPHILS % 49.4 % (36.0-66.0); PLATELET COUNT, AUTOMATED 293 10^3/uL (150-450); RED BLOOD COUNT 3.67 10^6/uL (4.00-5.40); WHITE BLOOD COUNT 6.1 10^3/uL (4.0-10.0)
== END ==
LOC: SKLAB4 08:01
PROVIDERS: ATTEND Internal Medicine
DX: E87.5 Hyperkalemia (principal)

== ENCOUNTER → 2024-10-06 | Outpatient (REF) | payer MEDICARE, OTHER ==
[2024-10-06 08:39] LABS: HEMOGLOBIN 10.8 g/dl (12.0-15.5); MEAN CORPUSCULAR HEMOGLOBIN 25.7 pg (27.0-33.0); MEAN CORPUSCULAR HGB CONC 29.2 g/dl (32.0-36.5); MEAN CORPUSCULAR VOLUME 88.1 fl (80.0-96.0); PLATELET COUNT, AUTOMATED 249 10^3/uL (150-450); WHITE BLOOD COUNT 7.2 10^3/uL (4.0-10.0)
[2024-10-06 08:54] LABS: HEMOGLOBIN A1c 8.7 % (4.0-6.0)
[2024-10-06 09:08] LABS: TOTAL 25(OH) VITAMIN D 29.3 NG/ML (20.0-100.0)
[2024-10-06 09:15] LABS: ALBUMIN 3.2 G/DL (3.2-5.2); BILIRUBIN,TOTAL 0.4 MG/DL (0.3-1.2); CALCIUM LEVEL 9.9 MG/DL (8.3-10.6); CREATININE FOR GFR 1.2 MG/DL (0.55-1.30); GLOMERULAR FILTRATION RATE 45.7 (>32); PHOSPHORUS LEVEL 4.4 MG/DL (2.4-5.1); POTASSIUM SERUM 4.6 MMOL/L (3.5-5.1); PTH INTACT 35.9 PG/ML (18.5-88.0); TOTAL PROTEIN 6.9 G/DL (5.7-8.2)
== END ==
LOC: SKLAB4 07:00
PROVIDERS: ATTEND Internal Medicine
DX: N18.9 Chronic kidney disease, unspecified (principal); E11.22 Type 2 diabetes mellitus with diabetic chronic kidney disease; I50.9 Heart failure, unspecified; I13.0 Hypertensive heart and chronic kidney disease with heart failure and stage 1 through stage 4 chronic kidney disease, or unspecified chronic kidney disease; Z79.899 Other long term (current) drug therapy

== ENCOUNTER → 2025-03-04 | Outpatient (REF) | payer MEDICARE, OTHER ==
[2025-03-04 08:26] LABS: ESTIMATED AVERAGE GLUCOSE 289.0 MG/DL (60-110)
== END ==
LOC: SKLAB4 07:00
PROVIDERS: ATTEND Internal Medicine
DX: E11.9 Type 2 diabetes mellitus without complications (principal)

== ENCOUNTER → 2025-04-02 | Outpatient (REF) | payer MEDICARE, OTHER ==
[2025-04-02 16:31] LABS: PLATELET COUNT, AUTOMATED 237 10^3/uL (150-450)
[2025-04-02 16:54] LABS: CALCIUM LEVEL 9.9 MG/DL (8.3-10.6); CARBON DIOXIDE LEVEL 32.0 MMOL/L (20-31); CHLORIDE LEVEL 100.0 MMOL/L (98-107); CREATININE FOR GFR 1.19 MG/DL (0.55-1.30); GLOMERULAR FILTRATION RATE 45.1 (>32); POTASSIUM SERUM 4.4 MMOL/L (3.5-5.1); SODIUM LEVEL 142.0 MMOL/L (136-145)
== END ==
LOC: SKLAB4 15:11
PROVIDERS: ATTEND Internal Medicine
DX: R11.2 Nausea with vomiting, unspecified (principal)

== ENCOUNTER → 2025-04-02 | Outpatient (CLI) | payer MEDICARE, OTHER | LOC: M RAD 10:26 | PROVIDERS: ATTEND Nurse Practitioner Family | DX: R11.2 Nausea with vomiting, unspecified (principal) ==

== ENCOUNTER → 2025-04-15 | Outpatient (REF) | payer MEDICARE, OTHER ==
[2025-04-15 09:36] LABS: PLATELET COUNT, AUTOMATED 243 10^3/uL (150-450)
[2025-04-15 10:09] LABS: ALT/SGPT 10.0 U/L (7.0-40); AST/SGOT 13.0 U/L (<34); CALCIUM LEVEL 9.5 MG/DL (8.3-10.6); CARBON DIOXIDE LEVEL 27.0 MMOL/L (20-31); CHLORIDE LEVEL 105.0 MMOL/L (98-107); CHOLESTEROL LEVEL 116.0 MG/DL (<200); CHOLESTEROL RISK RATIO 3.6 (<5); CREATININE FOR GFR 1.11 MG/DL (0.55-1.30); GLOMERULAR FILTRATION RATE 49.0 (>32); LDL CHOLESTEROL 47.8 MG/DL (<100); NON-HDL-C 83.8 MG/DL; POTASSIUM SERUM 4.4 MMOL/L (3.5-5.1); SODIUM LEVEL 142.0 MMOL/L (136-145); TRIGLYCERIDES LEVEL 180.0 MG/DL (<150)
== END ==
LOC: SKLAB4 07:00
PROVIDERS: ATTEND Internal Medicine
DX: E78.5 Hyperlipidemia, unspecified (principal); I10 Essential (primary) hypertension

== ENCOUNTER → 2025-06-02 | Outpatient (CLI) | payer MEDICARE, OTHER | LOC: M RAD 14:07 | PROVIDERS: ATTEND Nurse Practitioner | DX: M54.50 Low back pain, unspecified (principal); M47.816 Spondylosis without myelopathy or radiculopathy, lumbar region ==

== ENCOUNTER → 2025-06-17 | Outpatient (REF) | payer MEDICARE, OTHER ==
[2025-06-17 09:57] LABS: ESTIMATED AVERAGE GLUCOSE 237.0 MG/DL (60-110)
== END ==
LOC: SKLAB4 07:00
PROVIDERS: ATTEND Family Medicine
DX: E11.9 Type 2 diabetes mellitus without complications (principal)

== ENCOUNTER → 2025-06-28 | Outpatient (REF) | payer MEDICARE, OTHER ==
[2025-06-28 12:30] LABS: PLATELET COUNT, AUTOMATED 234 10^3/uL (150-450)
[2025-06-28 13:09] LABS: CALCIUM LEVEL 9.8 MG/DL (8.3-10.6); CARBON DIOXIDE LEVEL 32.0 MMOL/L (20-31); CHLORIDE LEVEL 96.0 MMOL/L (98-107); CREATININE FOR GFR 1.52 MG/DL (0.55-1.30); GLOMERULAR FILTRATION RATE 33.6 (>32); POTASSIUM SERUM 4.6 MMOL/L (3.5-5.1); SODIUM LEVEL 137.0 MMOL/L (136-145)
[2025-06-28 16:43] LABS: APPEARANCE, URINE TURBID (CLEAR); BACTERIA, URINE AUTO 3+ (NEGATIVE); BILIRUBIN, URINE AUTO NEGATIVE (NEGATIVE); BLOOD, URINE BLOOD 3+ (NEGATIVE); GLUCOSE, URINE (UA) AUTO 3+ mg/dL (NEGATIVE); KETONE, URINE AUTO NEGATIVE (NEGATIVE); LEUKOCYTE ESTERASE, URINE AUTO 2+ (NEGATIVE); MUCUS, URINE SMALL (NEGATIVE); NITRITE, URINE AUTO NEGATIVE (NEGATIVE); PROTEIN, URINE AUTO 2+ mg/dL (NEGATIVE); RBC, URINE AUTO 38 /HPF (0-3); SPECIFIC GRAVITY URINE AUTO 1.020 (1.002-1.035); SQUAMOUS EPITHELIAL CELL UR AU 0 /HPF (0-6); UROBILINOGEN, URINE AUTO 0.2 mg/dL (0.0-2.0); WBC, URINE AUTO TNTC /HPF (0-3)
== END ==
LOC: SKLAB4 11:23
PROVIDERS: ATTEND Family Medicine
DX: R41.82 Altered mental status, unspecified (principal)

== ENCOUNTER → 2025-06-30 | Outpatient (REF) | payer MEDICARE, OTHER ==
[2025-06-30 13:20] LABS: PLATELET COUNT, AUTOMATED 242 10^3/uL (150-450)
[2025-06-30 13:39] LABS: ALT/SGPT 9.0 U/L (7.0-40); AST/SGOT 12.0 U/L (<34); CALCIUM LEVEL 9.9 MG/DL (8.3-10.6); CARBON DIOXIDE LEVEL 30.0 MMOL/L (20-31); CHLORIDE LEVEL 98.0 MMOL/L (98-107); CREATININE FOR GFR 1.39 MG/DL (0.55-1.30); GLOMERULAR FILTRATION RATE 37.4 (>32); POTASSIUM SERUM 4.3 MMOL/L (3.5-5.1); SODIUM LEVEL 137.0 MMOL/L (136-145)
== END ==
LOC: SKLAB4 12:02
PROVIDERS: ATTEND Family Medicine
DX: K59.00 Constipation, unspecified (principal); R50.9 Fever, unspecified

== ENCOUNTER → 2025-07-01 | Outpatient (REF) | payer MEDICARE, OTHER ==
[2025-07-01 07:38] LABS: PLATELET COUNT, AUTOMATED 211 10^3/uL (150-450)
[2025-07-01 07:57] LABS: CALCIUM LEVEL 9.4 MG/DL (8.3-10.6); CARBON DIOXIDE LEVEL 30.0 MMOL/L (20-31); CHLORIDE LEVEL 96.0 MMOL/L (98-107); CREATININE FOR GFR 1.31 MG/DL (0.55-1.30); GLOMERULAR FILTRATION RATE 40.2 (>32); POTASSIUM SERUM 4.3 MMOL/L (3.5-5.1); SODIUM LEVEL 134.0 MMOL/L (136-145)
== END ==
LOC: SKLAB4 07:00
PROVIDERS: ATTEND Family Medicine
DX: D72.829 Elevated white blood cell count, unspecified (principal)

== ENCOUNTER → 2025-08-16 | Outpatient (REF) | payer MEDICARE, OTHER ==
[2025-08-16 10:44] LABS: ESTIMATED AVERAGE GLUCOSE 235.0 MG/DL (60-110)
== END ==
LOC: SKLAB4 07:00
PROVIDERS: ATTEND Family Medicine
DX: E11.9 Type 2 diabetes mellitus without complications (principal)